=== PATIENT | female | born 1980 | race Caucasian/White ===

== ENCOUNTER → 2018-07-30 14:59 | Outpatient (CLI) | payer BC, SELFPAY ==
--- NOTE | 2018-07-30 15:04 | MM_ITS ---
MM Dig screening mamm BI w/CAD CAD Screening COMPARISON: Digital mammograms 06/27/2016 07/13/2017 and additional views left breast 07/26/2017 INDICATION: There is a history of breast cancer patient's sister diagnosed at age 45 and paternal aunt diagnosed at age 70. TECHNIQUE: Standard CC and MLO images were obtained. R2 CAD reviewed. FINDINGS: The breasts are composed primarily of fat with scattered fibroglandular densities throughout most prominent in the upper outer quadrants. There is a small benign-appearing nodular density upper central portion of left breast stable and unchanged from previous exam. There is no suspicious lesion and there are no suspicious microcalcifications. IMPRESSION: Fibrofatty parenchyma with no suspicious lesion seen. BI-RADS Category: 2 Benign Finding(s) RECOMMENDED FOLLOW-UP: 1YR - 1 YEAR FOLLOW-UP (A letter has been sent to the patient regarding results of the study.)
== END ==
PROVIDERS: Family Provider Internal Medicine Adolescent Medicine; PCP Internal Medicine Adolescent Medicine; Visit Provider Internal Medicine Adolescent Medicine
DX: Z12.31 Encounter for screening mammogram for malignant neoplasm of breast (principal)
CPT/HCPCS: 77067

== ENCOUNTER → 2019-08-04 16:34 | Outpatient (CLI) | payer BC, SELFPAY ==
--- NOTE | 2019-08-04 16:40 | MM_ITS ---
PROCEDURE: MM DIG SCREENING MAMM BI W/CAD Patient Age:38Y CLINICAL INDICATION: ROUTINE SCREENING takes control pills no new complaints.. Family history. Sister age 45. Paternal aunt age 70? COMPARISON: DMSB DIG MAMM-SCREEN SABINE from 06/16/2015 DMSB DIG MAMM-SCREEN SABINE from 06/27/2016 DMBAV DIG MAMM- SABINE ADD VIEWS from 07/10/2016 DMSB DIG MAMM-SCREEN SABINE W/CAD from 07/13/2017 DMDXUAVL DIG MAMM-DX UNI A/VWS-LT W/CAD from 07/26/2017 [facility] MM Dig screening mamm BI w/CAD from 07/30/2018 TECHNIQUE: Standard CC and MLO images were obtained. R2 CAD reviewed. Additional axillary CC view right breast FINDINGS: . Minimal fibroglandular elements seen throughout both breast most evident central and towards upper-outer quadrant. No new areas of significant concern. Stable appearance when compared to multiple prior studies. Left breast but small stable nodular density compatible with small intramammary node deep left breast is stable. 5 mm size but IMPRESSION: Stable bilateral mammogram. No significant new areas of concern. Bilateral follow-up 1 year recommended BI-RAD Category: 1 Negative FOLLOW-UP: 1YR 1 Year Follow-up (A letter has been sent to the patient regarding results of the study.) Dictated by: Ramon Shelton MD 08/08/2019 09:01 Electronically signed by Ramon Shelton MD in [place] 08/08/2019 09:01
== END ==
PROVIDERS: PCP Internal Medicine Adolescent Medicine; Visit Provider Internal Medicine Adolescent Medicine
DX: Z12.31 Encounter for screening mammogram for malignant neoplasm of breast (principal)
CPT/HCPCS: 77067

== ENCOUNTER → 2020-08-06 15:30 | Outpatient (CLI) | payer BC, SELFPAY ==
--- NOTE | 2020-08-06 15:33 | MM_ITS ---
PROCEDURE: MM DIG SCREENING MAMM BI W/CAD Digital Breast Tomosynthesis Included CLINICAL INDICATION: SCREENING There is a history of breast cancer in the patient's sister and paternal aunt. The patient is on control pills. COMPARISON: MG DMDXUAVL DIG MAMM-DX UNI A/VWS-LT W/CAD from 07/26/2017 MG [facility] MM Dig screening mamm BI w/CAD from 07/30/2018 MG MM DIG SCREENING MAMM BI W/CAD from 08/04/2019 TECHNIQUE: Standard CC and MLO images and 3D Tomosynthesis was obtained. R2 CAD reviewed. FINDINGS: The breasts are composed primarily of fat with minimal scattered fibroglandular densities in each breast and the findings are bilateral and symmetrical. There is no new or suspicious lesion in either breast and no suspicious microcalcifications. There are several small nodes in both axilla which were noted previously. IMPRESSION: Fibrofatty parenchyma with no suspicious lesions seen BI-RAD Category: 1 Negative FOLLOW-UP: 1YR 1 Year Follow-up (A letter has been sent to the patient regarding results of the study.) Dictated by: Dr. Jose E Arango MD 08/08/2020 20:03 Dr. Jose E Arango MD in [place] 08/08/2020 20:03
== END ==
PROVIDERS: PCP Internal Medicine Adolescent Medicine; Visit Provider Internal Medicine Adolescent Medicine
DX: Z12.31 Encounter for screening mammogram for malignant neoplasm of breast (principal)
CPT/HCPCS: 77063; 77067

== ENCOUNTER → 2021-05-16 08:40 | Outpatient (CLI) | payer BC, SELFPAY ==
[2021-05-16 14:00] LABS: Alanine Aminotransferase 32 U/L (12-78); Albumin Level 3.9 g/dl (3.5-5.0); Albumin/Globulin Ratio 1.5 (1.1-1.8); Alkaline Phosphatase 78 U/L (38-126); Anion Gap 13.4 mEq/L (5-15); Aspartate Amino Transferase 49 U/L (14-36); Bilirubin,Total 0.5 mg/dl (0.2-1.3); Blood Urea Nitrogen 13 mg/dl (7-17); Calcium 9.1 mg/dl (8.4-10.2); Carbon Dioxide 22 mmol/L (22.0-30.0); Chloride 105 mmol/L (98-107); Chol/HDL Ratio 2.9 (1-3.5); Cholesterol 232 mg/dl (140-200); Estimated Glomerular Filt Rate 110 ml/min (>60); GFR (African American) 133 ML/MIN (>60); Globulin 2.6 g/dL (1.3-3.2); Glucose 94 mg/dl (74-100); HDL Cholesterol 79 mg/dl (40-60); Potassium 4.4 mmoL/L (3.5-5.1); Sodium 136 mmol/L (136-145); Total Protein,Serum 6.5 g/dl (6.3-8.2); Triglycerides 144 mg/dl (30-150); VLDL Cholesterol 29 mg/dL (0-40)
== END ==
PROVIDERS: Visit Provider Nurse Practitioner Family
DX: Z00.00 Encounter for general adult medical examination without abnormal findings (principal); I10 Essential (primary) hypertension
CPT/HCPCS: 36415; 80053; 80061

== ENCOUNTER → 2021-05-25 08:37 | Outpatient (CLI) | payer BC, SELFPAY | PROVIDERS: Visit Provider Nurse Practitioner Family | DX: R74.8 Abnormal levels of other serum enzymes (principal) | CPT/HCPCS: 80074 ==

== ENCOUNTER → 2021-05-25 09:03 | Outpatient (CLI) | payer BC, SELFPAY ==
--- NOTE | 2021-05-25 09:23 | US_ITS ---
PROCEDURE: US LIVER CLINICAL INDICATION: ELEVATED LIVER ENZYMES COMPARISON: No exams were available for comparison FINDINGS: PANCREAS: Pancreas is not well delineated due to overlying bowel gas. CT or MRI without and with contrast with pancreatic protocol may provide further evaluation if clinically desired. LIVER: Diffuse increased echogenicity of the liver with poor through transmission of sound consistent with hepatic steatosis. No focal liver lesion demonstrated. There is appropriate direction of blood flow within non dilated portal vein. RIGHT KIDNEY: Unremarkable. Normal size and echogenicity. No hydronephrosis GALLBLADDER: No gallstones, gallbladder wall thickening, pericholecystic fluid, or biliary dilatation. IMPRESSION: Fatty liver. Pancreas not well delineated. Otherwise negative Dictated by: Jogre Banerjee MD 05/25/2021 14:58 Jorge Banerjee MD in [place] 05/25/2021 14:58
[2021-05-26 11:12] LABS: Hep A Ab, IgM Negative (Negative); Hepatitis B Core Antibody IgM Negative (Negative); Hepatitis B Surface Antigen Negative (Negative); Hepatitis C Antibody <0.1 s/co ratio (0.0-0.9)
== END ==
PROVIDERS: Nurse Practitioner Family; PCP Internal Medicine Adolescent Medicine; Visit Provider Nurse Practitioner Family
DX: R74.8 Abnormal levels of other serum enzymes (principal)
CPT/HCPCS: 36415; 76705; 80074

== ENCOUNTER → 2021-08-08 15:30 | Outpatient (CLI) | payer BC, SELFPAY ==
--- NOTE | 2021-08-08 15:33 | MM_ITS ---
PROCEDURE: MM DIG SCREENING MAMM BI W/CAD Digital Breast Tomosynthesis Included CLINICAL INDICATION: SCREENING COMPARISON: MG [facility] MM Dig screening mamm BI w/CAD from 07/30/2018 MG MM DIG SCREENING MAMM BI W/CAD from 08/04/2019 MG MM DIG SCREENING MAMM BI W/CAD from 08/06/2020 TECHNIQUE: Standard CC and MLO images and 3D Tomosynthesis was obtained. R2 CAD reviewed. FINDINGS: There are scattered areas of fibroglandular density. No suspicious appearing mass, malignant-appearing microcalcification, architectural distortion, or skin thickening. IMPRESSION: No change with no evidence of malignancy BI-RAD Category: 1 Negative FOLLOW-UP: 1 YR 1 Year Follow-up (A letter has been sent to the patient regarding results of the study.) Dictated by: Jorge Banerjee MD 08/19/2021 12:36 Jorge Banerjee MD in [place] 08/19/2021 12:36
== END ==
PROVIDERS: PCP Internal Medicine Adolescent Medicine; Visit Provider Internal Medicine Adolescent Medicine
DX: Z12.31 Encounter for screening mammogram for malignant neoplasm of breast (principal)
CPT/HCPCS: 77063; 77067

== ENCOUNTER → 2021-08-09 16:20 | Outpatient (CLI) | payer BC, SELFPAY ==
--- NOTE | 2021-08-09 16:23 | XR_ITS ---
PROCEDURE: XR FOOT LT MIN 3V CLINICAL INDICATION: LT FOOT PAIN COMPARISON: No exams were available for comparison FINDINGS: No fracture or dislocation. No lytic or blastic change. There is normal mineralization. The joint spaces are well-preserved. No significant degenerative/arthritic changes. No erosive changes evident. Other findings:No sclerotic areas that would indicate a stress fracture IMPRESSION: No acute findings. Dictated by: Jorge Banerjee MD 08/09/2021 18:05 Jorge Banerjee MD in [place] 08/09/2021 18:05
== END ==
PROVIDERS: PCP Nurse Practitioner Family; Visit Provider Nurse Practitioner Family
DX: M79.672 Pain in left foot (principal)
CPT/HCPCS: 73630

== ENCOUNTER 2022-01-15 11:07 | Emergency (ER) | payer BC, SELFPAY ==
[2022-01-15 11:10] VITALS: BP 128/92; PULSE 118; RESP 18; TEMP 37.4; O2SAT 98; BMI 36.6
--- NOTE | 2022-01-15 11:27 | HMH.EDUTC ---
[facility] Disposition Clinical Impression: Bronchitis Sinusitis Qualifiers: Sinusitis location: unspecified location Chronicity: unspecified Qualified Code(s): J32.9 - Chronic sinusitis, unspecified Disposition: Home, Self-Care Condition on Discharge: Good Instructions: Acute Bronchitis, DI for Sinusitis, Doxycycline Additional Instructions: ? Start antibiotic today. Be sure to complete entire prescription even if feeling better ? Monitor temp. Tylenol every 4 hours as needed and / or ibuprofen every 6 hours as needed ( As long as your primary care physician has told you that it ok to take both. For fever/aches/pains ER if no less than 101 despite Tylenol or Motrin ? Humidifier/vaporizer or hot steamy shower ? Mucinex for your cough and cough congestion Be sure to drink lots of water. *Start steroid today. Helps with inflammation therefore, cough and wheezing. Follow directions on the package. Reviewed side effects. Patient reports taking them before. You were tested for today for COVID19 your test result should be back in the next 24-48 hours, you may check your results on the [facility] portal if you have trouble logging on you may call support for assistance If you are positive someone from the hospital will call you Make sure to take your Vitamins Vit. C Vit D and Zinc if you can take them Gargle warm salt water to help with sore scratchy throat Follow up IMMEDIATELY for new or worsening of symptoms OR no noticeable improvement over the next 48-72 hours. 911 immediately for any life threatening symptoms such as chest pain or difficulty breathing Prescriptions: Doxycycline Monohydrate [Doxycycline [place] 100mg Tab] 100 mg PO BID 10 Days #20 tab Transmission Status: Pending to [facility] Fluticasone Propionate [Flonase 50mcg nasal spray 16gm] 1 spr NS DAILY #1 each Transmission Status: Pending to [facility] methylPREDNISolone [Medrol 4mg tab] 4 mg PO DIRECTED #21 tab Transmission Status: Pending to [facility] guaiFENesin [Mucinex 600mg tablet] 1 - 2 tab PO Q12H PRN #20 tab PRN Reason: Congestion Transmission Status: Pending to [facility] Referrals: Ata Lyons MD [Primary Care Provider] - As needed Forms: Work/School Release Time of Disposition: 11:42 Medical Decision Making - Rian Inquiry Pt receiving controlled substance: No Rian was queried for this patient: No Vital Signs: 01/15/22 11:10 01/15/22 11:42 Temperature 99.4 F 99.4 F Temperature Source Oral Pulse Rate 118 H Pulse Rate [Right Brachial] 118 H Respiratory Rate 18 18 Blood Pressure 128/92 H Blood Pressure [Right Arm] 128/92 H Blood Pressure Mean [Right Arm] 104 Blood Pressure Source [Right Arm] Automatic Cuff Blood Pressure Position [Right Arm] Sitting 02 Sat by Pulse Oximetry 98 Oxygen Delivery Method Room Air Orders (Tests/Meds): ORDERS Category Date Time Status Covid-19 Nasal PCR ([facility]) Routine Lab 01/15/22 11:32 Ordered [facility] UTC HPI - General Stated complaint: body aches, chills, bilateral ear pain Time Seen by Provider: 01/15/22 11:27 Mode of Arrival: Ambulatory Source of Information: Patient Limitations: No Limitations Description of Symptoms (Recalled from Triage Doc. by RN): PATIENT C/O CHEST CONGESTION, PRODUCTIVE COUGH WITH YELLOW SPUTUM, BILATERAL EAR PAIN, SINUS DRAINAGE/PRESSURE, AND DRY MOUTH X 3 DAYS HEENT Symptoms (Recalled from RN notes): Yes Resp Symptoms (Recalled from RN notes): Yes Skin Symptoms (Recalled from RN notes): No MS Symptoms (Recalled from RN notes): No Functional Status (Recalled from RN notes): WNL - History of Present Illness Provider Complaint: Patient states that she has been having bilateral ear pain, sinus pain and pressure with drainage in the back of her throat that at times she is able to cough up States that mucous from her nose is yellowish and bloody at times, Body aches, and chills States that today she was still not feeli
[2022-01-15 11:42] VITALS: BP 128/92; PULSE 118; RESP 18; TEMP 37.4; O2SAT 98
== END 2022-01-15 11:45 | disposition home or self-care (01) ==
PROVIDERS: Emergency Provider Nurse Practitioner; PCP Internal Medicine Adolescent Medicine
DX: U07.1 COVID-19 (principal); J20.9 Acute bronchitis, unspecified; J32.9 Chronic sinusitis, unspecified; I10 Essential (primary) hypertension
CPT/HCPCS: 99202; 99212; 99213; C9803; G0463; U0003; U0005

== ENCOUNTER → 2022-02-06 16:21 | Outpatient (CLI) | payer BC, SELFPAY ==
--- NOTE | 2022-02-06 | XR_ITS ---
PROCEDURE INFORMATION: Exam: XR Chest Exam date and time: 02/06/2022 12:00 AM Age: 41 years old Clinical indication: Shortness of breath; Additional info: SOB TECHNIQUE: Imaging protocol: XR of the chest. Views: 2 views. COMPARISON: No relevant prior studies available. FINDINGS: Lungs: Unremarkable. No consolidation. Pleural spaces: Unremarkable. No pleural effusion. No pneumothorax. Heart/Mediastinum: Unremarkable. No cardiomegaly. Bones/joints: Unremarkable. IMPRESSION: No acute findings.
--- NOTE | 2022-02-06 16:51 | ECG_ITS ---
APPROVED REPORT Exam: Resting ECG HR:77 bpm ECG Measurements Heart Rate 77 AXES MN 149 P 14 QRSd 96 QRS 5 QT 382 T 35 QTc 413 Conclusion SINUS RHYTHM WITH SINUS ARRHYTHMIA LOW QRS VOLTAGE IN PRECORDIAL LEADS [QRS DEFLECTION < 1.0 mV IN CHEST LEADS] BORDERLINE ECG UNCONFIRMED REPORT Electronically signed by : Ata Lyons MD 02/07/2022 14:06:54
== END ==
PROVIDERS: PCP Physician Assistant; Visit Provider Physician Assistant
DX: U07.1 COVID-19 (principal); R05.9 Cough, unspecified
CPT/HCPCS: 71046; 93005

== ENCOUNTER → 2022-02-07 07:01 | Outpatient (CLI) | payer BC, SELFPAY ==
[2022-02-07 14:07] LABS: Basophils # 0.1 K/mm3 (0-0.2); Eosinophils # 0.4 K/mm3 (0.0-0.4); Eosinophils % 4.7 % (0.1-12.0); Hematocrit 41.7 % (37.0-47.0); Hemoglobin 13.1 g/dL (12.2-16.2); Lymphocytes # 2.2 K/mm3 (0.7-4.5); Lymphocytes % 27.8 % (10-50); Mean Corpuscular HGB Conc 31.4 g/dL (31.8-35.4); Mean Corpuscular Hemoglobin 28.4 pg (27.0-31.2); Mean Corpuscular Volume 90.3 fl (81-99); Mean Platelet Volume 9.5 fl (7.4-10.4); Monocytes # 0.4 K/mm3 (0.1-1.0); Monocytes % 5.4 % (1.7-9.3); Neutrophils # 4.8 K/mm3 (1.8-7.8); Platelet Count 462 K/mm3 (142-424); Red Blood Count 4.62 M/mm3 (4.20-5.40); Red Cell Distribution Width 13.6 % (11.5-17.5); White Blood Count 7.8 K/mm3 (4.8-10.8)
[2022-02-07 14:46] LABS: Alanine Aminotransferase 56 U/L (12-78); Albumin Level 4.1 g/dl (3.5-5.0); Albumin/Globulin Ratio 1.6 (1.1-1.8); Alkaline Phosphatase 75 U/L (38-126); Anion Gap 11.2 mEq/L (5-15); Aspartate Amino Transferase 63 U/L (14-36); Bilirubin,Total 0.8 mg/dl (0.2-1.3); Blood Urea Nitrogen 8 mg/dl (7-17); Calcium 8.9 mg/dl (8.4-10.2); Carbon Dioxide 24 mmol/L (22.0-30.0); Chloride 106 mmol/L (98-107); Chol/HDL Ratio 3.5 (1-3.5); Cholesterol 235 mg/dl (140-200); Estimated Glomerular Filt Rate 110 ml/min (>60); GFR (African American) 133 ML/MIN (>60); Globulin 2.5 g/dL (1.3-3.2); Glucose 111 mg/dl (74-100); HDL Cholesterol 67 mg/dl (40-60); Potassium 4.2 mmoL/L (3.5-5.1); Sodium 137 mmol/L (136-145); Total Protein,Serum 6.6 g/dl (6.3-8.2); Triglycerides 187 mg/dl (30-150); VLDL Cholesterol 37 mg/dL (0-40)
[2022-02-07 14:57] LABS: Direct LDL Cholesterol 132.67 mg/dL (100-129)
[2022-02-07 15:14] LABS: Thyroid Stimulating Hormone 1.48 uIU/mL (0.465-4.68)
[2022-02-07 16:08] LABS: Hemoglobin A1C 6.1 % (4.0-6.0)
== END ==
PROVIDERS: Visit Provider Physician Assistant
DX: R73.9 Hyperglycemia, unspecified (principal)
CPT/HCPCS: 36415; 80053; 80061; 83036; 84439; 84443; 85025

== ENCOUNTER → 2022-02-28 07:35 | Outpatient (CLI) | payer BC, SELFPAY ==
--- NOTE | 2022-02-28 07:36 | CA_ITS ---
APPROVED REPORT EXAM: Comprehensive 2D, Doppler, and color-flow Echocardiogram Actuary Clerk: Ruby Albarran, RCS, RVS Ht: 5 ft 2 in Wt: 210lbs BSA: 1.95 BP: 129/78 mmHg Indications: Hx-COVID 11/2021, CP, Palpitations, HTN, DM,HLD, HAYNES 2D Dimensions IVSd 0.65 cm LVEF (Visual) 73.00 % PWd 0.72 cm LA Volume 34.70 mL LVDd 4.75 cm LA Volume Index 17.80 mL/m2 (M/F) 16-34 LVDs 2.75 cm Aortic Root 2.37 cm Left Atrium 2.15 cm LVOT 1.88 cm (M/F) 1.5-2.5 M-Mode Dimensions RVDd 2.75 cm (0.9-2.6) LA Diam 3.59 cm (1.9-4.0) LVDd 4.68 cm (3.5-5.7) Ao Diam 2.73 cm (2.0-3.7) LVDs 3.07 cm (3.5-5.7) IVSd 0.96 cm (0.6-1.1) PWd 0.71 cm (0.6-1.1) EF (Teich) 63.50% EPSs 0.18 cm FS 34.40% EDV (Teich) 101.30 mL TAPSE 2.09 (<1.7) ESV (Teich) 37.00 mL LV Diastology E Decel Time 237.00 (160-240 msec) E/A Ratio 1.32 MED E' 8.20 (< 7 cm/sec) MED A' 12.80 cm/s E'/MED E' Ratio 11.00 (>14) LAT E' 13.60 (<10 cm/sec) LAT A' 7.40 cm/s E/LAT E' Ratio 6.63 (>14) Aortic Valve LVOT Max 115.00 (70-110 cm/s) LVOT VTI 25.66 cm AoV Peak Winston. 156.00 (50-130 cm/s) AO Peak GR. 9.80 mmHg AO Mean GR. 4.90 (<5 mmHg) AO VTI 32.00 (18-25 cm) ERNESTO (VTI) 2.23 (2.5-4.5 cm2) Mitral Valve MV A Velocity 68.00 (40-130 cm/s) E/A Ratio 1.32 MV Decel. Time 237.00 (160-240 ms) MV Mean Gr. 2.30 (<2mmHg) MV PHT 70.00 ms Pulmonary Valve PV Peak Velocity 107.00 (50-150 cm/s) [place] End VMAX 128.00 cm/s Tricuspid Valve TR P. Velocity 210.00 cm/s RAP Estimate 10.00 mmHg RVSP 27.70 mmHg Left Ventricle Left atrium is normal size, left ventricle is normal size, there is no concentric left ventricular hypertrophy, estimated ejection fraction 55% with no regional wall motion abnormality, diastolic parameters are within normal range. Right Ventricle Right atrium and right ventricle are normal size and contractility. Aortic Valve Is grossly normal, there is no aortic stenosis or aortic insufficiency. Mitral Valve Mitral valve is grossly normal, there is no mitral stenosis, there is trace mitral regurgitation. Tricuspid Valve Tricuspid valve grossly normal, there is trace tricuspid regurgitation, tricuspid regurgitation jet velocity is inadequate for calculation of the right ventricular systolic pressure. Pulmonic Valve Pulmonic valve is poorly visualized. Great Vessels Aortic root is normal size. Inferior vena cava is poorly visualized. Pericardium No significant pericardial effusion noted. Conclusion 1. Normal left ventricular size, preserved left ventricular systolic function, visually estimated ejection fraction 55% with no regional wall motion abnormality, diastolic parameters are within normal range. 2. Trace mitral and tricuspid regurgitation. 3. No significant pericardial effusion noted. 4. Inferior vena cava is poorly visualized. Electronically signed by : Jonh Ko MD 02/28/2022 19:15:34
--- NOTE | 2022-02-28 07:36 | CA_ITS ---
APPROVED REPORT Exam: Exercise Treadmill Technologist: Francesca Edwards, Ht: 5 ft 2 in Wt: 210 lbs BSA: 1.95 m2 HR: 75 bpm BP: 113/72 mmHg Medical History Medications: Lisinopril,,,,, Flonase,,,,, Montelukast,,,,, CetIRIZINE,,,,, NYstatin,,,,, Tri-lo-sheryl,,,,, Stress Test Details Test: Fabricio HR Resting HR: 73 bpm Max Heart Rate (APMHR): 178.243657 bpm Max HR Achieved: 175 bpm Target HR (85% APMHR): 151.179214 bpm % of APMHR: 98.31 Recovery HR: 117 bpm BP Resting BP: 130/79 mmHg Max BP: 188/85 mmHg Recovery BP: 121.0/71.0 mmHg ECG Resting ECG: NSR with periods of ectopic atrial rhythm, low voltage QRS Clinical Exercise duration: 07:02 min Highest Stage Achieved: III Exercise capacity: 10.1 METs Stress ECG Conclusion Exercised 7:02 into stage III of Fabricio Protocol Max HR: 175 % of PM: 98% Max BP: 188/85 METs: 10.1 Test stopped due to: SOA, Fatigue Symptoms: No CP. Arrhythmias/Ectopy: sustained periods of ectopic atrial rhythm. ST-T Changes: Normal ST response to exercise. Conclusion: No ischemic changes or CP. Ectopic atrial rhythm. GXT only (no imaging) Test Summary REST . . . . . . . Sitting REST 04:35 0.0 0.0 73 . 130/ 79 . . Stage 1 01:00 10.0 1.7 120 . . . . Stage 1 02:00 10.0 1.7 127 . . . . Stage 1 03:00 10.0 1.7 136 . 172/ 86 . . Stage 2 01:00 12.0 2.5 156 . . . . Stage 2 02:00 12.0 2.5 169 . 188/ 85 . . Stage 2 03:00 12.0 2.5 171 . 188/ 85 . . Stage 3 01:00 14.0 3.4 165 . . . . Stage 3 01:02 14.0 3.4 173 . . . Stop exercise at 07:02 RECOVERY 01:00 0.0 0.0 163 . . . . RECOVERY 02:00 0.0 0.0 133 . 168/ 78 . . RECOVERY 03:00 0.0 0.0 127 . 168/ 78 . . RECOVERY 04:00 0.0 0.0 113 . 134/ 77 . . RECOVERY 05:00 0.0 0.0 118 . 134/ 77 . . RECOVERY 06:00 0.0 0.0 121 . 134/ 77 . . RECOVERY 07:00 0.0 0.0 119 . 121/ 71 . . RECOVERY 07:27 0.0 0.0 115 . 121/ 71 . . Electronically signed by : Jonh Ko MD 02/28/2022 18:38:55
== END ==
PROVIDERS: PCP Physician Assistant; Visit Provider Physician Assistant
DX: R06.00 Dyspnea, unspecified (principal); R07.9 Chest pain, unspecified; R42 Dizziness and giddiness; R00.2 Palpitations; I10 Essential (primary) hypertension; E78.5 Hyperlipidemia, unspecified
CPT/HCPCS: 93017; 93270; 93306

== ENCOUNTER → 2022-03-21 10:23 | Outpatient (CLI) | payer BC, SELFPAY ==
--- NOTE | 2022-03-21 10:29 | US_ITS ---
FINAL REPORT CLINICAL HISTORY: MENORRHAGIA W/REG CYCLE FINDINGS: Transvaginal Ultrasound Technique: Transvaginal sonographic images of the pelvis were obtained. Findings: The uterus measures 9.8 x 6.7 x 4.3 cm. The myometrium is heterogeneous with multiple fibroids up to 2.6 cm. The endometrium is unremarkable. The right ovary measures 2.7 x 2.0 x 2.1 cm. The left ovary measures 3.1 x 2.4 x 2.0 cm. There are small cysts or follicles in both ovaries measuring less than 2 cm. There is no significant free fluid. IMPRESSION: Heterogeneous myometrium with multiple fibroids. Small cysts or follicles in both ovaries. Reviewed, Interpreted and Dictated by Cem Suárez MD Transcribed by Quoc Terrazas Authenticated by Cem Suárez MD on 03/21/2022 12:50:22 PM [facility]
== END ==
PROVIDERS: PCP Physician Assistant; Visit Provider Nurse Practitioner Family
DX: N92.0 Excessive and frequent menstruation with regular cycle (principal)
CPT/HCPCS: 76830

== ENCOUNTER → 2022-08-16 10:44 | Outpatient (CLI) | payer BC, SELFPAY ==
--- NOTE | 2022-08-16 10:48 | MM_ITS ---
PROCEDURE INFORMATION: Exam: MG Bilateral Screening 3D Mammography Exam date and time: 08/16/2022 10:40 AM Age: 41 years old Clinical indication: Screening examination. Her sister and a paternal aunt had breast cancer. TECHNIQUE: Imaging protocol: Bilateral Screening tomosynthesis and 2D mammography including computer-aided detection (CAD) when performed. COMPARISON: 1. MG MM DIG SCREENING MAMM BI W/CAD 08/08/2021 3:32 PM 2. MG MM DIG SCREENING MAMM BI W/CAD 08/06/2020 3:46 PM 3. MG MM DIG SCREENING MAMM BI W/CAD 08/04/2019 4:54 PM 4. MG [facility] MM Dig screening mamm BI w/CAD 07/30/2018 3:39 PM FINDINGS: MAMMOGRAPHY: Breast composition: There are scattered areas of fibroglandular density. Mass: None. Architectural distortion: None. Calcifications: No suspicious calcifications. Asymmetric density: None. Skin thickening: None. Axillary adenopathy: None. IMPRESSION: No mammographic evidence of malignancy. Annual screening is recommended unless otherwise clinically indicated. ASSESSMENT: BI-RADS Category 1: Negative
== END ==
PROVIDERS: PCP Physician Assistant; Visit Provider Internal Medicine Adolescent Medicine
DX: Z12.31 Encounter for screening mammogram for malignant neoplasm of breast (principal)
CPT/HCPCS: 77063; 77067

== ENCOUNTER → 2022-10-10 11:23 | Outpatient (CLI) | payer BC, SELFPAY ==
[2022-10-10 12:25] LABS: Basophils # 0.1 K/mm3 (0-0.2); Basophils % 1.2 % (0.1-2.0); Eosinophils # 0.3 K/mm3 (0.0-0.4); Eosinophils % 2.9 % (0.1-12.0); Hematocrit 45.4 % (37.0-47.0); Hemoglobin 14.5 g/dL (12.2-16.2); Lymphocytes # 3.9 K/mm3 (0.7-4.5); Lymphocytes % 32.3 % (10-50); Mean Corpuscular HGB Conc 31.9 g/dL (31.8-35.4); Mean Corpuscular Volume 87.8 fl (81-99); Mean Platelet Volume 7.7 fl (7.4-10.4); Monocytes # 0.5 K/mm3 (0.1-1.0); Monocytes % 3.8 % (1.7-9.3); Neutrophils # 7.1 K/mm3 (1.8-7.8); Neutrophils % 59.8 % (37.0-80.0); Platelet Count 404 K/mm3 (142-424); Red Blood Count 5.18 M/mm3 (4.20-5.40); Red Cell Distribution Width 13.5 % (11.5-17.5); White Blood Count 11.9 K/mm3 (4.8-10.8)
[2022-10-10 12:44] LABS: Chloride 104 mmol/L (98-107); Potassium 4.3 mmoL/L (3.5-5.1); Sodium 140 mmol/L (136-145)
[2022-10-10 12:46] LABS: Alanine Aminotransferase 40 U/L (12-78); Alkaline Phosphatase 98 U/L (38-126); Aspartate Amino Transferase 40 U/L (14-36); Bilirubin,Total 0.2 mg/dl (0.2-1.3); Blood Urea Nitrogen 6 mg/dl (7-17); Estimated Glomerular Filt Rate 109 ml/min (>60); GFR (African American) 132 ML/MIN (>60)
[2022-10-10 12:47] LABS: Albumin Level 4.2 g/dl (3.5-5.0); Albumin/Globulin Ratio 1.6 (1.1-1.8); Anion Gap 14.3 mEq/L (5-15); Calcium 9.9 mg/dl (8.4-10.2); Carbon Dioxide 26 mmol/L (22.0-30.0); Globulin 2.6 g/dL (1.3-3.2); Glucose 71 mg/dl (74-100); Total Protein,Serum 6.8 g/dl (6.3-8.2)
[2022-10-10 13:19] LABS: HCG,Quantitative < 2 mIU/ml (0-5.42)
== END ==
PROVIDERS: PCP Internal Medicine Adolescent Medicine; Visit Provider Obstetrics & Gynecology
DX: Z01.818 Encounter for other preprocedural examination (principal); N85.2 Hypertrophy of uterus
CPT/HCPCS: 36415; 80053; 84702; 85025

== ENCOUNTER 2022-10-12 09:06 | Inpatient (IN) | payer BC, SELFPAY ==
[2022-10-10 15:25] VITALS: BMI 40.2
[2022-10-12] VITALS (21 sets, daily range): BP systolic 95–140; BP diastolic 62–85; PULSE 63–108; RESP 12–18; TEMP 36.1–43; O2SAT 94–99
[2022-10-12 06:57] LABS: Coronavirus 19, PCR Not Detected (NotDetected); Influenza A, PCR Not Detected (NotDetected); Influenza B, PCR Not Detected (NotDetected)
--- NOTE | 2022-10-12 07:32 | EXP.HP ---
History of Present Illness *Admission Date: 10/12/22 *Reason for visit:: hysterectomy *History of present illness: 41 yo Previous menses 2-3 days duration but now 8 days total Bleeding dysfunctional for past 5-6 months Bleeding is heavy, with large clots + double protection Hgb 13.1 Pelvic ultrasound 03/21/22: uterus 9.8x6.7x4.3 multiple fibroids noted, largest 2.6cm R ovary: 2.7x2.0x2.1 L ovary: 3.1x2.4x2.0 Desires definitive management with hysterectomy; declines continued trial of medical management or endometrial ablation She has been advised that she is a good candidate for trial of TLH, but depending on location of fibroids and vesico-uterine adhesions may require ARLIN She is advised to preserve ovaries based on current ultrasound findings PFSH [facility] Medical History (Updated 10/12/22 @ 07:37 by Vida Kay MD) History of COVID-19 History of hypertension Kidney stone Surgical History (Updated 10/12/22 @ 07:37 by Vida Kay MD) History of delivery History of tonsillectomy Family History Family history of cancer Family history of hypertension Family history of myocardial infarction Family history of hyperlipidemia Social History (Updated 10/12/22 @ 06:38 by Arlen Frias, MARVA) Smoking Status: Never smoker alcohol intake: never substance use type: denies use current occupational status: employed Travel in the last 8 weeks: None caffeine: Yes Review of Systems Review of Systems Review of systems:: pertinent systems reviewed and negative unless documented below Constitutional Constitutional: Reports system reviewed and no additional complaints, except as documented *Genitourinary Genitourinary: Reports dysmenorrhea and Reports menorrhagia Meds Home Medications and Allergies Home Medications Medication Instructions Recorded Confirmed Type cetirizine 10 mg tablet 10 mg PO DAILY Allergy symptoms 01/15/22 10/12/22 History montelukast 10 mg tablet 10 mg PO PM Allergy symptoms 01/15/22 10/12/22 History fluticasone propionate 50 1 spr NS DAILY allergies 10/10/22 10/12/22 History mcg/actuation nasal spray,suspension medroxyprogesterone 10 mg tablet 10 mg PO BID hormones 10/10/22 10/12/22 History (Provera) metoprolol succinate 25 mg 25 mg PO DAILY htn 10/10/22 10/12/22 History tablet,extended release 24 hr (Toprol XL) New Prescriptions to Start Prescriptions: Allergies Allergy/AdvReac Type Severity Reaction Status Date / Time chlorpheniramine Allergy Severe throat Verified 10/12/22 06:25 [From [facility]] swelling phenylephrine [From [facility]] Allergy Severe throat Verified 10/12/22 06:25 swelling pseudoephedrine [From [facility]] Allergy Severe throat Verified 10/12/22 06:25 swelling pyrilamine [From [facility]] Allergy Severe thraot Verified 10/12/22 06:25 swelling scopolamine [From [facility]] Allergy Severe throat Verified 10/12/22 06:25 swelling erythromycin base Allergy Other Verified 10/12/22 06:25 Exam Data for Last 24 hours Vital signs and Labs for Last 24 Hours: Temp Pulse Resp BP Pulse Ox 97.0 F L 63 18 140/76 99 10/12/22 06:27 10/12/22 06:27 10/12/22 06:27 10/12/22 06:27 10/12/22 06:27 Laboratory Results - last 24 hr 10/12/22 06:50: SARS-CoV-2 (PCR) Not detected, Influenza A Untype (PCR) Not detected, Influenza Type B (PCR) Not detected I & O for Last 24 hours: Intake & Output 10/09/22 10/10/22 10/11/22 10/12/22 11:59 11:59 11:59 11:59 Weight 220 lb Constitutional Constitutional: no acute distress *Routine HEENT Exam Head: Present normocephalic Eye: Absent conjunctival icterus or scleral injection ENT: Present mucous membranes moist *Routine Neck Exam Neck: Present supple *Routine Respiratory Exam Respiratory: Present CTA bilaterally; Absent respiratory distress *Routine Cardiovascular Exam Cardiovascular: Present RRR *Routine A
--- NOTE | 2022-10-12 08:16 | EXP.ANES.CKL ---
PFSH [facility] Medical History (Updated 10/12/22 @ 07:37 by Vida Kay MD) History of COVID-19 History of hypertension Kidney stone Surgical History (Updated 10/12/22 @ 07:37 by Vida Kay MD) History of delivery History of tonsillectomy Family History Other Family history of cancer Family history of hyperlipidemia Family history of hypertension Family history of myocardial infarction Social History (Updated 10/12/22 @ 06:38 by Arlen Frias, RN) Smoking Status: Never smoker alcohol intake: never substance use type: denies use current occupational status: employed Travel in the last 8 weeks: None caffeine: Yes [facility] Anesthesia Checklist Patient Identification Patient Identification: Arm Band and Verbal (Name & ) Structural Data Admitted From: Home Planned Operative Procedure/s: Total Laparascopic Hysterectomy Consent for Planned Operative Procedure(s) Verified: Yes Verified Documents: Surgical Consent NPO Status Verified Time NPO: 00:00 Chart Verification Results Verified: CBC and BMP Additional verifications Anesthesia Reactions: No Hx Blood Transfusions: No Blood Transfusion Reaction: No Airway Assessment C-Spine Mobility Assessed: Yes TMJ Mobility Assessed: Yes Dentition: Good Dentition Neurological Assessment Level of Consciousness: Awake and Alert Anesthesia Plan ASA Class: III Anesthesia Type: General
--- NOTE | 2022-10-12 09:17 | SUR.OPER ---
LATE ENTRY 0825- decision made by md Demond to perform total abdominal hysterectomy. 0835- all counts completed and correct for the ARLIN procedure. All lap instruments removed and moved aside before the ARLIN counts began. 0853- open incision was made at this time. 0900- family updated of pt current status and changes in the surgery plan per alma buckner.
--- NOTE | 2022-10-12 09:30 | HMH.PHAINT1 ---
Pharmacy Intervention Comments: MEDICATION RECONCILIATION COMPLETED ON PATIENT USING EXTERNAL FILL HISTORY FROM PHARMACY. -VICKIE FRANCISCO, AMBERD
--- NOTE | 2022-10-12 09:39 | SUR.OPER ---
0850- counts completed and correct w/ afouch, and sita,rn blades-3 suture-21 hypo-1 bovie-1 laps-15 rays-10 hysterecomy instruments 23+ main set/ narda gooden 105= 128 total
--- NOTE | 2022-10-12 10:05 | SUR.OPER ---
1005- family updated of pt current status via alma gee
--- NOTE | 2022-10-12 11:29 | P.PNANES_ITS ---
[facility] Anesthesia Record Part I Anesthesia Record I Intake, IV Amount: 2,300 Estimated blood loss (mL): 450 Urine output (mL): 150 Blood Pressure: 95/62 SaO2: 98 Pulse Rate: 102 Respiratory Rate: 18 Temperature: 97.1 F Patient is:: Drowsy, Nasal O2 and Stable Stable to PACU at:: 11:23
--- NOTE | 2022-10-12 11:50 | EXP.OP.NOTE ---
Date of procedure: 10/12/22 Pre-op Diagnosis:: 1. Heavy Menstrual Bleeding 2. Enlarged Uterus 3. Uterine Fibroids 4. Previous C Section Post-op Diagnosis:: Same Procedure performed:: 1. Diagnostic Laparoscopy 2. Total Abdominal Hysterectomy, Bilateral Salpingectomy Surgeon:: Vida Kay MD Nurse Practitioner(s):: Afsaneh Manning DO DISTILLERY WORKER GENERAL:: Giorgi Lao Anesthesia: GETA Estimated blood loss (mL): 450 Operative findings:: Bulky, enlarged uterus with 5 discrete fibroids visualized Grossly normal ovaries bilaterally Grossly normal fallopian tubes bilaterally Moderate vesicouterine adhesions Operative note:: The patient was taken to the operating room and general anesthesia was administered without difficulty. She was prepped and draped in lithotomy position. An indwelling izaguirre catheter was inserted into the bladder with clear urine draining.? An Advincula uterine manipulator was placed without difficulty; the uterus sounded to 10cm and the colpotomy cup covered the cervix snuggly.? The uterine balloon was filled with 10cc of air and the vaginal balloon was filled with 50cc of sterile water.? Gloves were changed and attention was turned to the abdomen. ? The skin below the umbilical site was injected with 0.5% marcaine.? A 2cm skin incision was made in the umbilical fold and the verees needle was inserted through the peritoneum and into the abdominal cavity in standard fashion.? The abdomen was insufflated with CO2 gas.? An 11mm non-bladed trocar was inserted directly into the abdominal cavity under direct visualization; no intra-abdominal injuries occurred during entry into the abdominal cavity, as confirmed visually with the laparoscope. A survey of the pelvis showed a grossly enlarged and bulky uterus, with 5 discrete subserosal fibroids visualized within the fundus and anterior uterus. Based on the width of the uterus and location of some of the fibroids, it was determined that it would not be feasible to proceed with laparoscopic approach and the procedure was converted to an abdominal hysterectomy. The umbilical trocar and uterine manipulator were removed, the abdomen was evacutated of gas and the patient was taken out of lithotomy and re-draped in supine position. The umbilical incision was closed with 3-0 vicryl. A Pfannenstiel skin incision was made approximately 2 cm above the pubic symphysis with a scalpel and carried down to the underlying layer of fascia. The fascia was incised in the midline and extended laterally sharply. The rectus muscles were sharply dissected off the fascia and in the midline. The peritoneum was turned and sharply, with good visualization of the underlying structures. The peritoneal incision was extended bluntly. At this time, the patient was placed in Trendelenburg and an O'Jose Luis- O'Johnson abdominal retractor was placed in the abdomen; the bowel was packed with moist laparotomy sponges. A double tooth tenaculum was placed on the uterine fundus and the uterus was elevated out of the pelvis. The round ligaments were identified and transected and suture-ligated. The anterior lip of the broad ligament was dissected medially on both sides and the bladder flap was created digitally. The posterior leaf of the broad ligament was dissected until the ureters were able to be identified on either side and noted to be free of the forthcoming adnexal pedicles. Infundibulopelvic ligaments were doubly clamped transected and suture ligated on either side, with excellent hemostasis noted. The fallopian tubes on either side were excised using the ligasure and the specimens were set aside for pathology. The uterine arteries were skeletonized on either side, and were clamped, transected and suture ligated with excellent hemostasis. The bladder flap was further bluntly dissected off the lower uterine segment with excellent hemostasis and without injury to the bladder. The cardinal and uterosacral ligaments were clamped transe
--- NOTE | 2022-10-12 12:05 | SUR.PHASEI ---
1148 called and gave detailed report to Oseas Scott OB RN [id number] transported pt to OB room. vital signs stable. denies pain at this time. transported on 3L O2 via nasal cannula. Oseas Lao CRNA aware of pt needing oxygen and being drowsy post operatively. Oseas Lao CRNA okay that pt goes to regular OB room. left in stable condition with Oseas Scott OB RN at bedside.
--- NOTE | 2022-10-12 12:10 | PC.NURSE ---
PATIENT TO FLOOR- HERNANDEZ IN PLACE- DRAINING DARK YELLOW URINE. IV INFUSING WITHOUT DIFFICULTY. LUNGS CTA AND BOWEL SOUNDS X4. LOW TRANSVERSE INCISION NOTED. NO DRAINAGE. SMALL AMOUNT OF VAGINAL BLEEDING. NO EDEMA NOTED. SCUDS APPLIED. VISITORS AT BEDSIDE.
--- NOTE | 2022-10-12 19:15 | PC.NURSE ---
REPORT TO Janine BERRY RN
[2022-10-13 00:15] VITALS: BP 113/61; PULSE 109; RESP 18; TEMP 37.4; O2SAT 99
[2022-10-13 04:30] VITALS: BP 110/60; PULSE 100; RESP 18; TEMP 37.3
--- NOTE | 2022-10-13 06:07 | PC.NURSE ---
PT HAS RESTED WELL THROUGHOUT SHIFT, PT DENIES PAIN JUST STATES ABDOMEN IS SORE LUNGS REMAIN CLEAR, BS X 4 QUADS, PASSING FLATUS, IV INFUSING WELL, DRSG TO LOW TRANSVERSE INCISION CLEAN DRY AND INTACT, BANDAID TO ABD HAS SCANT AMOUNT OF OLD BLOOD NOTED, HERNANDEZ CATHETER PATENT, CALL LIGHT WITHIN REACH
[2022-10-13 07:20] VITALS: BP 111/67; PULSE 107; RESP 18; TEMP 37.3; O2SAT 97
[2022-10-13 07:25] VITALS: O2SAT 97
[2022-10-13 07:27] LABS: Hematocrit 31.2 % (37.0-47.0); Hemoglobin 10.3 g/dL (12.2-16.2)
[2022-10-13 07:38] LABS: Anion Gap 14.6 mEq/L (5-15); Blood Urea Nitrogen 9 mg/dl (7-17); Calcium 8.2 mg/dl (8.4-10.2); Carbon Dioxide 24 mmol/L (22.0-30.0); Chloride 105 mmol/L (98-107); Creatinine Clearance Estimated 163 mL/min (50-200); Estimated Glomerular Filt Rate 91 ml/min (>60); GFR (African American) 111 ML/MIN (>60); Glucose 135 mg/dl (74-100); Potassium 3.6 mmoL/L (3.5-5.1); Sodium 140 mmol/L (136-145)
--- NOTE | 2022-10-13 11:10 | PC.NURSE ---
Got patient up at this time- Done very well. bed linens changed. was able to urinate.
--- NOTE | 2022-10-13 14:30 | PC.NURSE ---
DRESSING REMOVED AT THIS TIME- CLEANSED PER PROTOCOL. PT EDUCATION PROVIDED.
[2022-10-13 16:00] VITALS: BP 110/68; PULSE 93; RESP 18; TEMP 37.3; O2SAT 95
--- NOTE | 2022-10-13 16:00 | PC.NURSE ---
REASSESSMENT DONE AT THIS TIME. NO CHANGES. LUNGS CTA, AND BOWEL SOUNDS ACTIVE X4. LOW TRANSVERSE INCISION CAMACHO - NO DRAINAGE. UMBILICAL INCISION WITH BANDAID OVER IT. NO EDEMA NOTED. PT HAS REPORTED MINIMAL PAIN TODAY, WELL MANAGEMENT WITH [facility]. NO CURRENT NEEDS.
--- NOTE | 2022-10-13 17:12 | EXP.ACUTE.PN ---
Subjective *Date: 10/13/22 *Time: 17:12 Interval history: POD #1 Diagnostic laparoscopy, ARLIN No unusual complaints Tolerating regular diet Ambulating and voiding without difficulty Pain control sufficient Medical Exam Vital signs and Labs for Last 24 Hours: Vital Signs Temp Pulse Resp BP Pulse Ox 10/13/22 16:00 95 10/13/22 07:25 97 10/13/22 07:20 99.1 F 107 H 18 111/67 97 10/13/22 04:30 99.1 F 100 H 18 110/60 10/13/22 00:15 99.3 F 109 H 18 113/61 99 10/12/22 19:00 102 H 18 121/71 98 10/12/22 18:00 98.5 F 89 18 133/79 98 Intake and Output 10/13/22 10/13/22 10/13/22 03:59 11:59 19:59 Output Total 1300 / 1300 1500 / 1500 Balance -1300 / -1300 -1500 / -1500 Output: Output, Urine Amount 1300 / 1300 1500 / 1500 Laboratory Results - last 24 hr 10/13/22 07:04: Hgb 10.3 L, Hct 31.2 L 10/13/22 07:04: Sodium 140, Potassium 3.6, Chloride 105, Carbon Dioxide 24, Anion Gap 14.6, BUN 9 D, Creatinine 0.70, Estimated Creat Clear 163, Estimated GFR 91, Est GFR ( Amer) 111, Glucose 135 H, Calcium 8.2 L I & O for Labs for Last 24 Hours: Intake & Output 10/11/22 10/12/22 10/13/22 10/14/22 11:59 11:59 11:59 11:59 Intake Total 2300 / 2300 Output Total 1300 / 1300 1500 / 1500 Balance 2300 / 2300 -1300 / -1300 -1500 / -1500 Weight 220 lb ENT: Present mucous membranes moist Neck: Present normal inspection Respiratory: Present CTA bilaterally; Absent respiratory distress Cardiac: Present Reg Rate and Rhythm GI: Present soft and tenderness; Absent distention (female): Present deferred Extremities: Absent tenderness or edema Skin: Present intact and dry Assessment and Plan *Assessment and plan (1) Heavy menstrual bleeding: Status: Acute Category: Medical Code(s): N92.0 - Excessive and frequent menstruation with regular cycle (2) Bulky or enlarged uterus: Status: Acute Category: Medical Code(s): N85.2 - Hypertrophy of uterus (3) Uterine fibroid: Status: Acute Category: Medical Code(s): D25.9 - Leiomyoma of uterus, unspecified (4) S/P abdominal hysterectomy: Status: Acute Category: Surgical Code(s): Z90.710 - Acquired absence of both cervix and uterus (5) Status post bilateral salpingectomy: Status: Acute Category: Surgical Code(s): Z90.79 - Acquired absence of other genital organ(s) Plan Advance care as tolerated Anticipate discharge home tomorrow
--- NOTE | 2022-10-13 19:16 | PC.NURSE ---
REPORT TO Ashley BAR RN
[2022-10-13 21:11] VITALS: BP 133/62; PULSE 99; RESP 18; TEMP 37.5; O2SAT 98
[2022-10-14 04:00] VITALS: BP 116/67; PULSE 110; RESP 18; TEMP 37.4; O2SAT 96
--- NOTE | 2022-10-14 04:35 | PC.NURSE ---
A&OX4. TOLERATING RA WELL. PT HAS HAD A GREAT NIGHT. HAS SLEPT MAJORITY OF SHIFT. SON AT BEDSIDE. PT HAS HAD NO C/O PAIN, ONLY SLIGHT BURNING TO L SIDE OF LOWER ABD INCISION WHEN WALKING TO BATHROOM. HAS ONLY REQUIRED SCHEDULED TORADOL T/O NIGHT. PT HAS HAD ADEQUATE U/O T/O NIGHT. AMBULATING INDEPENDENTLY IN ROOM. INCISION CDI, NO DRAINAGE NOTED. PT HAS NOT HAD BM BUT IS PASSING GAS. NO OTHER C/O OR NEEDS NOTED. VSS.
--- NOTE | 2022-10-14 07:28 | PC.NURSE ---
REPORT GIVEN TO Kristie OWENS RN
[2022-10-14 08:15] VITALS: BP 120/66; PULSE 105; RESP 18; TEMP 37.4; O2SAT 100
[2022-10-14 08:30] VITALS: O2SAT 100
--- NOTE | 2022-10-14 08:35 | PC.NURSE ---
IV saline lock secured and pt getting up to shower. Incentive spirometer provided and usage explained. Verbalized understanding.
[2022-10-14 11:00] VITALS: PULSE 98; TEMP 36.9; O2SAT 100
--- NOTE | 2022-10-14 11:16 | EXP.DC.SUM ---
General Admission date:: 10/12/22 HPI HPI HPI: 41 yo Previous menses 2-3 days duration but now 8 days total Bleeding dysfunctional for past 5-6 months Bleeding is heavy, with large clots + double protection Hgb 13.1 Pelvic ultrasound 03/21/22: uterus 9.8x6.7x4.3 multiple fibroids noted, largest 2.6cm R ovary: 2.7x2.0x2.1 L ovary: 3.1x2.4x2.0 Desires definitive management with hysterectomy; declines continued trial of medical management or endometrial ablation She has been advised that she is a good candidate for trial of TLH, but depending on location of fibroids and vesico-uterine adhesions may require ARLIN She is advised to preserve ovaries based on current ultrasound findings Hospital Course Hospital Course Hospital Course: Postop course uncomplicated She is discharged home on POD #2, in stable condition She is ambulating and voiding without difficulty She is tolerating a regular diet Pain control has been sufficient Postop labs reviewed and appropriate She is asmyptomatic with postop anemia Hgb 10.3 after hysterectomy with EBL 450cc She will f/u in office in 2 weeks Exam Data for Last 24 hours Vital signs and Labs for Last 24 Hours: Temp Pulse Resp BP Pulse Ox 98.4 F 98 H 18 120/66 100 10/14/22 11:00 10/14/22 11:00 10/14/22 08:15 10/14/22 08:15 10/14/22 11:00 I & O for Last 24 hours: Intake & Output 10/11/22 10/12/22 10/13/22 10/14/22 11:59 11:59 11:59 11:59 Intake Total 2300 / 2300 Output Total 1300 / 1300 1500 / 1500 Balance 2300 / 2300 -1300 / -1300 -1500 / -1500 Weight 220 lb Constitutional Constitutional: no acute distress *Routine HEENT Exam Head: Present normocephalic Eye: Absent conjunctival icterus or scleral injection ENT: Present mucous membranes moist *Routine Neck Exam Neck: Present supple *Routine Respiratory Exam Respiratory: Present CTA bilaterally *Routine Cardiovascular Exam Cardiovascular: Present RRR *Routine Abdominal Exam Abdominal: Present soft; Absent distended Comments: mild abdominal tenderness, appropriate for postop status *Routine Rectal Exam Patient deferred: visual exam and digital exam *Routine Exam Patient deferred: external exam *Routine Extremities Exam Extremities: Present edema *Routine Skin Exam Skin: Present intact and dry Comments: Incisions dry/intact without erythema or purulent drainage *Routine Neurological Exam Neurological: Present alert and oriented X3 Routine Psychiatric Exam Psychiatric: Present normal affect; Absent depressed DS: Diagnosis Discharge Diagnosis (1) Heavy menstrual bleeding: Status: Acute (2) Bulky or enlarged uterus: Status: Acute (3) Uterine fibroid: Status: Acute (4) S/P abdominal hysterectomy: Status: Acute (5) Status post bilateral salpingectomy: Status: Acute Meds Home Medications and Allergies Home Medications Medication Instructions Recorded Confirmed Type cetirizine 10 mg tablet 10 mg PO DAILY Allergy symptoms 01/15/22 10/12/22 History montelukast 10 mg tablet 10 mg PO PM Allergy symptoms 01/15/22 10/12/22 History fluticasone propionate 50 1 spr NS DAILY allergies 10/10/22 10/12/22 History mcg/actuation nasal spray,suspension medroxyprogesterone 10 mg tablet 10 mg PO BID hormones 10/10/22 10/12/22 History (Provera) metoprolol succinate 25 mg 25 mg PO DAILY Hypertension 10/10/22 10/12/22 History tablet,extended release 24 hr (Toprol XL) ibuprofen 400 mg tablet 800 mg PO Q6HP PRN Mild Pain #30 10/14/22 Rx tabs oxycodone 5 mg tablet 10 mg PO Q4HP PRN Moderate To 10/14/22 Rx Severe Pain #30 tabs New Prescriptions to Start Prescriptions: Vida Barber oxycodone Vida Kay Allergies Allergy/AdvReac Type Severity Reaction Status Date / Time chlorpheniramine Allergy Severe throat Verified 10/12/22 06:25 [From [facility]] swelling ph
--- NOTE | 2022-10-14 12:14 | PC.NURSE ---
Given Tylenol and Ibuprofen for a headache. See Mar.
--- NOTE | 2022-10-14 13:19 | PC.NURSE ---
Discharge instructions given to pt. Verbalized understanding. Denies any questions or concerns at this time. Denies any need for pain medication. Awaiting Med[facility] from [facility] for discharge.
--- NOTE | 2022-10-14 14:26 | EXP.ANES.II ---
[facility] Anesthesia Record Part II Anesthesia Record Part II Discharge Time: 11:53 (10/12/22) Destination: Obstetric PACU nurse assessment reviewed?: Yes Patient Condition:: Good Anesthesia Complications:: None Swallowing reflex intact?: Yes Cyanosis?: No Blood Pressure: 129/85 Pulse Rate: 101 Temperature: 97.9 F Mental Status: Alert & Oriented Pain level:: 0 Nausea and/or vomitting:: None Intake, IV Amount: 0
[2022-10-14 14:27] VITALS: BP 129/85; PULSE 101; TEMP 36.6
--- NOTE | 2022-10-14 14:35 | PC.NURSE ---
Pt received prescriptions from [facility].
== END 2022-10-14 14:43 | disposition home or self-care (01) | DRG 743 ==
LOC: OB 10-13 01:44
PROVIDERS: Admitting Provider Obstetrics & Gynecology; PCP Internal Medicine Adolescent Medicine; Visit Provider Obstetrics & Gynecology
PROC: 0UT90ZZ Resection of Uterus, Open Approach (ICD-10-PCS; principal; 2022-10-12 07:30)
DX: N92.0 Excessive and frequent menstruation with regular cycle (principal); N85.2 Hypertrophy of uterus; D25.9 Leiomyoma of uterus, unspecified; Z53.31 Laparoscopic surgical procedure converted to open procedure; I10 Essential (primary) hypertension; Z86.16 Personal history of COVID-19; Z87.442 Personal history of urinary calculi
CPT/HCPCS: 58150; 36415; 80048; 85014; 85018; 88307; 96374; C9803; J2405; U0003; U0005

== ENCOUNTER 2022-10-25 15:31 | Inpatient (IN) | payer BC, SELFPAY ==
[2022-10-25 16:30] VITALS: BP 139/75; PULSE 121; RESP 20; TEMP 36.9; O2SAT 99; BMI 36.6
[2022-10-25 16:33] VITALS: BMI 36.6
--- NOTE | 2022-10-25 16:33 | XR_ITS ---
PROCEDURE INFORMATION: Exam: XR Chest Exam date and time: 10/25/2022 5:18 PM Age: 42 years old Clinical indication: Other: Fever; Additional info: Fever, patient had hysterectomy a week or 2 ago TECHNIQUE: Imaging protocol: Radiologic exam of the chest. Views: 1 view. COMPARISON: CR XR CHEST 2V 02/06/2022 4:38 PM FINDINGS: Lungs: No evidence of pneumonia or interstitial edema. Pleural spaces: Unremarkable. No pleural effusion. No pneumothorax. Heart/Mediastinum: Unremarkable. No cardiomegaly. Bones/joints: Unremarkable. IMPRESSION: No evidence of pneumonia or interstitial edema.
[2022-10-25 16:50] LABS: Microscopic, Urine URINE MICROSCOPIC (MICROSCOPIC)
[2022-10-25 16:52] LABS: Appearance,Urine CLEAR (Clear); Blood, Urine 3+ (Negative); Color,Urine DK YELLOW (Yellow); Glucose,Urine (UA) Negative (Negative); Ketones,Urine 1+ (Negative); Leukocyte Esterase,Urine Negative (Negative); Nitrate,Urine POSITIVE (Negative); PH,Urine 5.5 (5.0-8.5); Protein,Urine 2+ (Negative); Specific Gravity, Urine >= 1.030 (1.005-1.030); Urobilinogen,Urine 0.2 EU/dl (0.2)
[2022-10-25 16:56] LABS: Coronavirus 19, PCR Not Detected (NotDetected); Influenza A, PCR Not Detected (NotDetected); Influenza B, PCR Not Detected (NotDetected)
[2022-10-25 17:02] LABS: Chloride 104 mmol/L (98-107); Potassium 3.5 mmoL/L (3.5-5.1); Sodium 137 mmol/L (136-145)
[2022-10-25 17:02] LABS: Bilirubin,Urine 1+ (Negative)
[2022-10-25 17:04] LABS: Alanine Aminotransferase 34 U/L (12-78); Aspartate Amino Transferase 32 U/L (14-36); Blood Urea Nitrogen 10 mg/dl (7-17); Creatinine Clearance Estimated 148 mL/min (50-200); Estimated Glomerular Filt Rate 91 ml/min (>60); GFR (African American) 111 ML/MIN (>60)
[2022-10-25 17:05] LABS: Albumin Level 4.2 g/dl (3.5-5.0); Albumin/Globulin Ratio 1.5 (1.1-1.8); Alkaline Phosphatase 103 U/L (38-126); Anion Gap 10.5 mEq/L (5-15); Bilirubin,Total 0.7 mg/dl (0.2-1.3); Calcium 9.3 mg/dl (8.4-10.2); Carbon Dioxide 26 mmol/L (22.0-30.0); Globulin 2.8 g/dL (1.3-3.2); Glucose 137 mg/dl (74-100)
[2022-10-25 17:06] LABS: Lactic Acid 1.7 mmol/L (0.7-2.1)
[2022-10-25 17:10] LABS: Basophils # 0.2 K/mm3 (0-0.2); Basophils % 0.6 % (0.1-2.0); Eosinophils # 0.1 K/mm3 (0.0-0.4); Eosinophils % 0.2 % (0.1-12.0); Hematocrit 38.5 % (37.0-47.0); Lymphocytes # 2.6 K/mm3 (0.7-4.5); Lymphocytes % 8.2 % (10-50); Mean Corpuscular HGB Conc 31.1 g/dL (31.8-35.4); Mean Corpuscular Hemoglobin 27.7 pg (27.0-31.2); Mean Corpuscular Volume 88.9 fl (81-99); Mean Platelet Volume 7.6 fl (7.4-10.4); Monocytes # 1.1 K/mm3 (0.1-1.0); Monocytes % 3.4 % (1.7-9.3); Neutrophils % 87.6 % (37.0-80.0); Platelet Count 665 K/mm3 (142-424); Red Blood Count 4.33 M/mm3 (4.20-5.40); Red Cell Distribution Width 13.3 % (11.5-17.5); White Blood Count 31.9 K/mm3 (4.8-10.8)
[2022-10-25 17:12] LABS: MANUAL DIFFERENTIAL MANUAL DIFFERENTIAL (MANUAL DIFF)
--- NOTE | 2022-10-25 17:13 | PC.NURSE ---
rounded on room 8 see if they needed anything. needed a warm blanket. went and got that for the pt
[2022-10-25 17:18] LABS: Bacteria,Urine 2+ /lpf; WBC,Urine Occasional #/hpf (0-3)
--- NOTE | 2022-10-25 17:35 | CT_ITS ---
PROCEDURE INFORMATION: Exam: CT Abdomen And Pelvis With Contrast Exam date and time: 10/25/2022 6:05 PM Age: 42 years old Clinical indication: Generalized; Prior surgery; Surgery date: <1 month; Surgery type: Patient had hysterectomy 10/12/2022. Patient HX: Abdominal pain post hysterectomy. ; Additional info: Post op hysterectomy TECHNIQUE: Imaging protocol: Computed tomography of the abdomen and pelvis with contrast. Radiation optimization: All CT scans at this facility use at least one of these dose optimization techniques: automated exposure control; mA and/or kV adjustment per patient size (includes targeted exams where dose is matched to clinical indication); or iterative reconstruction. Contrast material: ISOVUE; Contrast volume: 75 ml; Contrast route: IV; COMPARISON: US TRANSVAGINAL 03/21/2022 10:38 AM FINDINGS: Lungs: Lung bases are unremarkable. Liver: No focal hepatic lesions. Gallbladder and bile ducts: Gallbladder is distended without radiopaque cholelithiasis. No biliary ductal dilation. Pancreas: No peripancreatic fluid stranding. No main pancreatic ductal dilation. Spleen: No splenomegaly. Adrenal glands: The adrenal glands are normal. Kidneys and ureters: Nephrograms are symmetric. Nonobstructive right nephrolithiasis noted. No hydroureteronephrosis on either side. No solid lesions. Stomach and bowel: Unremarkable. No obstruction. No mucosal thickening. Appendix: A normal appendix is identified. Intraperitoneal space: stranding along the peritoneal reflections noted. Small amount of pelvic free fluid noted Vasculature: Aorta is nonaneurysmal. Lymph nodes: No evidence of retroperitoneal or mesenteric lymphadenopathy Urinary bladder: Urinary bladder is unremarkable. Reproductive: Status post hysterectomy. There is a walled-off collection containing air pockets in the pelvic region measuring 4 x 6.2 x 3.0 cm. (AP x TRV x SI). Bones/joints: Unremarkable. No acute fracture. Soft tissues: Foci of subcutaneous gas in the abdominal wall likely from recent subcutaneous injection. Mild stranding along the Pfannenstiel incision. IMPRESSION: There is a walled-off collection containing air pockets in the pelvic region measuring 4 x 6.2 x 3.0 cm. (AP x TRV x SI).
[2022-10-25 17:38] VITALS: BP 91/53; PULSE 109; O2SAT 99
[2022-10-25 17:39] LABS: Lymphocytes % 9 % (10-50); Monocytes % 3 % (2-9); Neutrophils % 88 % (42-76); Total Cells Counted 100
[2022-10-25 17:40] LABS: Hypochromasia 1+; Platelet Estimate Normal
--- NOTE | 2022-10-25 17:51 | HMH.EDGENADL ---
Discharge Plan Disposition Patient Disposition: Admitted As Inpatient Condition: Serious Clinical Impressions Clinical Impression: Sepsis, Abscess of pelvis Discharge ED Provider: Juan Reilly General Adult HPI General Chief complaint: Vaginal Bleeding Stated complaint: Hysterectomy 10/12 pain,fever Time Seen by Provider: 10/25/22 17:51 Mode of Arrival: Ambulatory Source of Information: Patient Limitations: No Limitations Description of Symptoms (Recalled from ER Triage Doc. by RN): c/o fever and heavy vaginal bleeding after hysterectomy 10/12. States the bleeding started heavy with having to change a pad every hour on 10/21. Incision site WNL History of Present Illness HPI narrative: The patient states that she had a hysterectomy by Dr. Kay on 10/12/2022. States she was doing well until 10/21/2022 when she began having some vaginal bleeding. Vaginal bleeding has increased. No clots or pus in the blood. Last night she began having lower back pain, lower abdominal pain, and a fever. She called Dr. Kay today and was advised to come to the emergency department. She has had some diarrhea. No vomiting. No URI symptoms. Related Data Home Medications Medication Instructions Recorded Confirmed cetirizine 10 mg tablet 10 mg PO DAILY Allergy symptoms 01/15/22 10/12/22 montelukast 10 mg tablet 10 mg PO PM Allergy symptoms 01/15/22 10/12/22 fluticasone propionate 50 1 spr NS DAILY allergies 10/10/22 10/12/22 mcg/actuation nasal spray,suspension metoprolol succinate 25 mg 25 mg PO DAILY Hypertension 10/10/22 10/12/22 tablet,extended release 24 hr (Toprol XL) Previous Rx's Medication Instructions Recorded acetaminophen 325 mg tablet 650 mg PO Q4HP PRN Mild Pain #30 10/14/22 tabs ibuprofen 400 mg tablet 800 mg PO Q6HP PRN Mild Pain #30 10/14/22 tabs oxycodone 5 mg tablet 10 mg PO Q4HP PRN Moderate To 10/14/22 Severe Pain #30 tabs Allergies Allergy/AdvReac Type Severity Reaction Status Date / Time chlorpheniramine Allergy Severe throat Verified 10/12/22 06:25 [From [facility]] swelling phenylephrine [From [facility]] Allergy Severe throat Verified 10/12/22 06:25 swelling pseudoephedrine [From [facility]] Allergy Severe throat Verified 10/12/22 06:25 swelling pyrilamine [From [facility]] Allergy Severe thraot Verified 10/12/22 06:25 swelling scopolamine [From [facility]] Allergy Severe throat Verified 10/12/22 06:25 swelling erythromycin base Allergy Other Verified 10/12/22 06:25 [facility] Disclaimer: The information contained in this section may have been updated after the patient was seen, as this information can be updated by other users. Medical History (Updated 10/25/22 @ 20:16 by Juan Reilly MD) History of COVID-19 History of hypertension Kidney stone Surgical History (Updated 10/13/22 @ 17:16 by Vida Kay MD) History of delivery History of tonsillectomy S/P abdominal hysterectomy Status post bilateral salpingectomy Family History Other Family history of cancer Family history of hyperlipidemia Family history of hypertension Family history of myocardial infarction Social History (Updated 10/12/22 @ 06:38 by Arlen Frias RN) Smoking Status: Unknown if ever smoked alcohol intake: never substance use type: denies use current occupational status: employed Travel in the last 8 weeks: None caffeine: Yes ROS Obtained: Yes Systems reviewed as appropriate & no additional complaints except as documented Constitutional Constitutional: Reports fever(s), Denies headache(s) and Denies weakness ENT Ears, Nose, Mouth, and Throat: Denies headache(s), Denies nasal discharge and Denies sore throat Cardiovascular Cardiovascular: Denies chest pain Respiratory Respiratory: Denies shortness of breath and Denies cough Gastrointestinal Gastrointestingal: Reports abdominal pain and jonathan
[2022-10-25 18:31] VITALS: BP 102/70; PULSE 104; O2SAT 100
--- NOTE | 2022-10-25 18:56 | PC.NURSE ---
had Dr Kay paged per ER doctor to speak with him about this pt
--- NOTE | 2022-10-25 19:09 | PC.NURSE ---
hs aware of pt admission to OB
[2022-10-25 20:13] VITALS: BP 105/68; PULSE 101; RESP 20; TEMP 36.9; O2SAT 100
[2022-10-25 20:45] VITALS: BP 105/61; PULSE 67; RESP 18; TEMP 37.6; O2SAT 98
[2022-10-25 23:14] VITALS: BP 116/63; PULSE 91; RESP 18; TEMP 37; O2SAT 98
--- NOTE | 2022-10-26 00:23 | PC.NURSE ---
late entry for 191 dr carbajal notified this nurse of admission from ER new orders as follows cbc,cmp and lactic acid level in am zosyn 3.375 g q6h normal saline at 150ml/hr regular diet tylenol 1g q6h for pain or fever ibuprofen 800mg q8h prn for pain or fever lovenox dvt prophylaxis notify pharmacy for dosing phone order repeated and verified at this time 2024: pharmacy notified for proper dosing of lovenox. spoke with jaguar lovenox 40mg subq daily for dvt prophylaxis
[2022-10-26 03:50] VITALS: BP 104/47; PULSE 81; RESP 16; TEMP 37.1; O2SAT 98
--- NOTE | 2022-10-26 03:51 | PC.NURSE ---
REASSESSMENT: NO ACUTE CHANGES NOTED, PT HAS RESTED OFF AND ON, UP FREQUENTLY TO BATHROOM, LUNGS REMAIN CLEAR, ABDOMEN SOFT, PT REPORTS TENDERNESS TO LLQ AND RLQ OF ABDOMEN, INCISION TO ABDOMEN NOT WELL APPROXIMATED AND REDNESS NOTED WITH SCAN PURULENT DRAINAGE NO CHANGE FROM PREVIOUS ASSESSMENT AT ARRIVAL TO UNIT, SMALL AMOUNT OF VAGINAL BLEEDING NOTED, URINE DARK CLOUDY RAMAKRISHNA IN COLOR WITH STRONG ODOR, HEADACHE SOMEWHAT BETTER WITH ADMINISTRATION OF TYLENOL AND IBUPROFEN, PT IS AFREBRILE AT THIS TIME, HIGHEST TEMPERATURE NOTED THIS SHIFT WAS 99.7 ORALLY, ANTIBIOTIC THERAPY CONTINUES PER MD ORDERS.
--- NOTE | 2022-10-26 07:22 | HMH.PHAINT1 ---
Pharmacy Intervention Comments: MEDICATION RECONCILIATION COMPLETED ON PATIENT USING EXTERNAL FILL HISTORY FROM PHARMACY. -VICKIE FRANCISCO, AMBERD
[2022-10-26 07:31] VITALS: BP 101/48; PULSE 88; RESP 18; TEMP 37.1; O2SAT 99
[2022-10-26 08:00] VITALS: O2SAT 98
[2022-10-26 08:15] LABS: Basophils # 0.1 K/mm3 (0-0.2); Basophils % 0.5 % (0.1-2.0); Chloride 111 mmol/L (98-107); Eosinophils # 0.3 K/mm3 (0.0-0.4); Eosinophils % 1.3 % (0.1-12.0); Hematocrit 31.1 % (37.0-47.0); Lymphocytes # 2.9 K/mm3 (0.7-4.5); Lymphocytes % 15.2 % (10-50); Mean Corpuscular HGB Conc 31.9 g/dL (31.8-35.4); Mean Corpuscular Hemoglobin 28.4 pg (27.0-31.2); Mean Corpuscular Volume 88.8 fl (81-99); Mean Platelet Volume 8.2 fl (7.4-10.4); Monocytes # 0.9 K/mm3 (0.1-1.0); Monocytes % 4.8 % (1.7-9.3); Neutrophils # 14.7 K/mm3 (1.8-7.8); Neutrophils % 78.2 % (37.0-80.0); Platelet Count 541 K/mm3 (142-424); Potassium 3.3 mmoL/L (3.5-5.1); Red Cell Distribution Width 13.6 % (11.5-17.5); Sodium 138 mmol/L (136-145); White Blood Count 18.9 K/mm3 (4.8-10.8)
[2022-10-26 08:18] LABS: Alanine Aminotransferase 23 U/L (12-78); Albumin Level 3.2 g/dl (3.5-5.0); Albumin/Globulin Ratio 1.3 (1.1-1.8); Alkaline Phosphatase 108 U/L (38-126); Anion Gap 8.3 mEq/L (5-15); Aspartate Amino Transferase 30 U/L (14-36); Bilirubin,Total 0.5 mg/dl (0.2-1.3); Blood Urea Nitrogen 8 mg/dl (7-17); Carbon Dioxide 22 mmol/L (22.0-30.0); Creatinine Clearance Estimated 173 mL/min (50-200); Estimated Glomerular Filt Rate 109 ml/min (>60); GFR (African American) 132 ML/MIN (>60); Globulin 2.5 g/dL (1.3-3.2); Total Protein,Serum 5.7 g/dl (6.3-8.2)
[2022-10-26 08:19] LABS: Calcium 8.2 mg/dl (8.4-10.2); Glucose 99 mg/dl (74-100); Lactic Acid 0.6 mmol/L (0.7-2.1)
[2022-10-26 08:26] LABS: MANUAL DIFFERENTIAL MANUAL DIFFERENTIAL (MANUAL DIFF)
[2022-10-26 08:27] LABS: Hemoglobin 9.9 g/dL (12.2-16.2)
--- NOTE | 2022-10-26 08:36 | EXP.HP ---
History of Present Illness *Admission Date: 10/25/22 *Reason for visit:: vaginal bleeding, fever *History of present illness: 42 yo 2 weeks postop from dignostic laparoscopy and total abdominal hysterectomy Postop course has been uncomplicated until this past sunday, which was 1.5 weeks postop, when she started having light vaginal bleeding The bleeding got heavier over sunday-sunday and she developed fever to 101 at home on Sunday She called the office on Sunday to report the bleeding and fever, and was advised to be evaluated in the ED Temp was 99.7 o initial assessment, but WBC markedly elevated 31.9 CT showed 4x6.2x3cm abscess at vaginal cuff She was admitted for IV antibiotics and started on Zosyn Repeat labs 12 hours later showed significant decrease in all parameters, indicating concentration initial specimen, however WBC still significantly elevated at 18.9 She reports that she feels significantly improved this morning, after several doses of zosyn vaginal bleeding has been light since admission, but upon review of a saved pad, it appears that the discharge is purulent and that the abscess may be spontaneously draining through the cuff [facility] Disclaimer: The information contained in this section may have been updated after the patient was seen, as this information can be updated by other users. Medical History History of COVID-19 History of hypertension Kidney stone Surgical History History of delivery History of tonsillectomy S/P abdominal hysterectomy Status post bilateral salpingectomy Family History Family history of cancer Family history of hypertension Family history of myocardial infarction Family history of hyperlipidemia Social History Smoking Status: Unknown if ever smoked alcohol intake: never substance use type: denies use current occupational status: employed Travel in the last 8 weeks: None caffeine: Yes Review of Systems Review of Systems Review of systems:: pertinent systems reviewed and negative unless documented below Constitutional Constitutional: Reports fever(s) *Genitourinary Genitourinary: Reports abnormal vaginal bleeding Meds Home Medications and Allergies Home Medications Medication Instructions Recorded Confirmed Type cetirizine 10 mg tablet 10 mg PO DAILY Allergy symptoms 02/20/22 11/30/22 History montelukast 10 mg tablet 10 mg PO PM Allergy symptoms 01/15/22 10/25/22 History fluticasone propionate 50 1 spr NS DAILY allergies 10/10/22 10/25/22 History mcg/actuation nasal spray,suspension metoprolol succinate 25 mg 25 mg PO DAILY Hypertension 10/10/22 10/25/22 History tablet,extended release 24 hr (Toprol XL) acetaminophen 325 mg tablet 650 mg PO Q4HP PRN Mild Pain #30 10/14/22 10/25/22 Rx tabs ibuprofen 400 mg tablet 800 mg PO Q6HP PRN Mild Pain #30 10/14/22 10/25/22 Rx tabs oxycodone 5 mg tablet 10 mg PO Q4HP PRN Moderate To 10/14/22 10/25/22 Rx Severe Pain #30 tabs New Prescriptions to Start Prescriptions: Allergies Allergy/AdvReac Type Severity Reaction Status Date / Time chlorpheniramine Allergy Severe throat Verified 10/12/22 06:25 [From [facility]] swelling phenylephrine [From [facility]] Allergy Severe throat Verified 10/12/22 06:25 swelling pseudoephedrine [From [facility]] Allergy Severe throat Verified 10/12/22 06:25 swelling pyrilamine [From [facility]] Allergy Severe thraot Verified 10/12/22 06:25 swelling scopolamine [From [facility]] Allergy Severe throat Verified 10/12/22 06:25 swelling erythromycin base Allergy Other Verified 10/12/22 06:25 Exam Data for Last 24 hours Vital signs and Labs for Last 24 Hours: Temp Pulse Resp BP Pulse Ox 98.9 F 88 18 114/61 99
[2022-10-26 08:47] LABS: Eosinophils % 2 % (0-3); Lymphocytes % 12 % (10-50); Monocytes % 14 % (2-9); Neutrophils % 72 % (42-76); Total Cells Counted 100
[2022-10-26 08:50] LABS: Anisocytosis 1+; Platelet Estimate Slight Increase; Poikilocytosis 1+
[2022-10-26 15:37] VITALS: BP 114/61; PULSE 88; RESP 18; TEMP 37.2; O2SAT 99
--- NOTE | 2022-10-26 18:34 | PC.NURSE ---
LATE ENTRY: 1450 PT UP TO SHOWER, PT TOLERATED WELL AND SHOWERED INDEPENDENTLY. LINENS CHANGED AT THIS TIME. 16:10 NO ACUTE CHANGES FROM PREVIOUS ASSESSMENT. PT HAS RESTED WELL MOST OF THE SHIFT WITH C/O OCCASIONAL HEADACHE OR GENERALIZED MALAISE. LUNGS ARE CTA BILATERALLY. MILD TENDERNESS NOTED OVER BLADDER. LTV INCISION CLEANSED DURING SHOWER. NO INCREASING WARMTH OR DRAINAGE NOTED TO INCISION- WOUND CULTURE OBTAINED EARLIER IN SHIFT BY DR MULLIGAN. PT REPORTS USING SMALLER PADS AND HAVING SMALL AMOUNT OF BROWN/PURULENT VAGINAL DISCHARGE.
--- NOTE | 2022-10-26 19:12 | PC.NURSE ---
REPORT GIVEN TO BEULAH DURHAM
--- NOTE | 2022-10-26 19:15 | PC.NURSE ---
REPORT RECIEVED FROM MARVA MILLS
--- NOTE | 2022-10-26 19:55 | PC.NURSE ---
ASSESSMENT DONE AT THIS TIME.PT REPORTS SHE DOES NOT FEEL WELL,TEMP WAS OK.98.6,B/P 117/68,P-89,R-18,SAT LEVEL ON RA 99%.DENIES ANY NAUSEA NOW AND HER PAIN IS MAYBE A 1-2.REPORTS SHE DID NOT HAVE MUCH VAG.BLEEDING IF ANY THE LAST FEW TIMES UP TO BATHROOM.URINE WAS RAMAKRISHNA IN COLOR IN THE MEASSURING HAT.500ML EMPTIED.WILL NO NEEDS OR CONCERNS VOICED
[2022-10-26 19:56] VITALS: BP 117/68; PULSE 89; RESP 18; TEMP 37; O2SAT 99
[2022-10-26 19:57] VITALS: O2SAT 99
--- NOTE | 2022-10-26 20:58 | PC.NURSE ---
PT LAYING IN BED.SALINE LOCK FLUSHED WITHOUT DIFF. AND ZOSYN HUNG.LOVENOX 40 MG GIVEN SQ IN ABD.PT HAD VOIDED AGAIN AND THE URINE WAS CLEAR AND YELLOW,PT DENIES ANY VAG,BLEEDING
--- NOTE | 2022-10-26 21:21 | PC.NURSE ---
ZOSYN INFUSED.SALINE LOCK FLUSHED,NO NEEDS OR CONCERNS VOICED.PT REPORTS SHE IS GOING TO TRY AND GET SOME SLEEP AFTER SHE GOES TO BATHROOM
[2022-10-27] VITALS (11 sets, daily range): BP systolic 104–120; BP diastolic 64–83; PULSE 85–96; RESP 17–18; TEMP 36.8–37.4; O2SAT 97–99
--- NOTE | 2022-10-27 03:32 | PC.NURSE ---
PT WOKE THIS MORING C/O GAS DISCOMFORT AND REQ SOMETHING FOR IT,MYLICON GIVEN.PT DENIES PASSING ANY FLATUS.PT VOIDING WITHOUT DIFF.CLEAR YELLOW URINE,SMALL AMT VAG.BLEEDING NOTED ON KOTEX PAD,LIGHT RED PURULENT DRAINAGE NOTED.INCISION OPEN TO AIR,LITLE REDDNESS WITHOUT DRAINAGE.LUNGS CLEAR,RESP.EVEN AND UNLABORED.PT REQ SCUDDS BE REMOVED FOR AWHILE,SHE IS HOT,TOLD HER THAT COULD LEAVE THEM OFF FOR A LITTLE WHILE,PT V/U.BOWEL SOUNDS NORMAL X 4 QUADS.AFEBRILE.PT REPORTS THAT SHE DID NOT FEEL THIS BAD WHEN SHE HAD HER PERIOD FOR 13 DAYS.OFFERED SOME TYLENOL AND MOTRIN AND SHE SAID YES,RATED PAIN A 3 ON SCALE OF 0-10
--- NOTE | 2022-10-27 05:18 | PC.NURSE ---
PT RANG OUT AND WANTED SOMETHING ELSE FOR PAIN,RATED HER PAIN A 5 ON SCALE OF 0-10,REPORTS SHE THINKS IT IS GAS PAIN AND SHE SAID SHE WAS NAUSEATED.ENCOURAGED PT AMBULATE OR ROCK IN ROCKING CHAIR TO GET THE GAS MOVING AND ZOFRAN 4MG IV GIVEN FOR NAUSEA.NO OTHER NEEDS OR CONCERNS VOICED
--- NOTE | 2022-10-27 05:52 | PC.NURSE ---
UPON ENTERING ROOM,PT WAS EASILY AROUSED,SHE REPORTS SHE DOZED OFF,BUT STILL HAS THE GAS PAIN,TOLD HER THAT I COULD GIVE HER SOME MORE MYLICON IN ABOUT 20-30 MINS,PT V/U,NO NEEDS OR CONCERNS VOICED
--- NOTE | 2022-10-27 07:08 | PC.NURSE ---
REPORT GIVEN TO ANDREYRN
[2022-10-27 07:55] LABS: Basophils % 0.3 % (0.1-2.0); Eosinophils # 0.5 K/mm3 (0.0-0.4); Eosinophils % 3.7 % (0.1-12.0); Hematocrit 30.7 % (37.0-47.0); Hemoglobin 10.2 g/dL (12.2-16.2); Lymphocytes # 1.8 K/mm3 (0.7-4.5); Lymphocytes % 14.3 % (10-50); Mean Corpuscular HGB Conc 33.4 g/dL (31.8-35.4); Mean Corpuscular Hemoglobin 28.2 pg (27.0-31.2); Mean Corpuscular Volume 84.7 fl (81-99); Mean Platelet Volume 7.7 fl (7.4-10.4); Monocytes # 0.4 K/mm3 (0.1-1.0); Monocytes % 3.1 % (1.7-9.3); Neutrophils # 10.1 K/mm3 (1.8-7.8); Neutrophils % 78.5 % (37.0-80.0); Platelet Count 615 K/mm3 (142-424); Red Blood Count 3.63 M/mm3 (4.20-5.40); Red Cell Distribution Width 13.4 % (11.5-17.5); White Blood Count 12.8 K/mm3 (4.8-10.8)
--- NOTE | 2022-10-27 09:05 | PC.NURSE ---
here to see pt.
--- NOTE | 2022-10-27 09:11 | CT_ITS ---
FINAL REPORT TECHNIQUE: After the administration of oral and intravenous contrast, axial images were obtained through the abdomen and pelvis by computed tomography. The study was performed with techniques to keep radiation dose as low as reasonably achievable, (ALARA). Individual dose reduction techniques using automated exposure control or adjustment of mA and/or kV according to the patient's size were employed. CLINICAL HISTORY: to compare to previous CT- Gastrophgrafin COMPARISON: October 25, 2022 FINDINGS: Abdomen: The lung bases are clear. There is mild fatty infiltration of the liver. The gallbladder is present. The spleen, pancreas, and adrenals appear unremarkable. There is a tiny nonobstructing stone in the right renal collecting system measuring 3 mm. The aorta is normal in caliber. There is no free fluid or adenopathy. Pelvis: The appendix is not identified. The urinary bladder is unremarkable. There is an air and fluid collection in the mid pelvis that is slightly smaller as compared to prior measuring 5.2 x 4.0 cm. Gastrografin is seen in a decompressed colon. There is no abnormal communication between the colon and the mid pelvic collection. A 4.1 x 1.5 cm fluid collection in the left anterior pelvic wall is less evident than on the prior exam. IMPRESSION: Redemonstration of mid pelvic abscess that is slightly smaller. No abnormal communication between the colon and abscess. Reviewed, Interpreted and Dictated by Cem Suárez MD Transcribed by Quoc Terrazas Authenticated and [facility]
--- NOTE | 2022-10-27 09:29 | PC.NURSE ---
Radiology here to give pt her Gastrografin.
--- NOTE | 2022-10-27 09:47 | PC.NURSE ---
Medicated with Zofran 4mg IV for nausea.
--- NOTE | 2022-10-27 10:02 | PC.NURSE ---
Pt has finished her Gastrografin
--- NOTE | 2022-10-27 12:22 | PC.NURSE ---
Pt taken to Radiology via w/c for CT
--- NOTE | 2022-10-27 12:34 | PC.NURSE ---
Pt back to room from CT scan
--- NOTE | 2022-10-27 12:52 | P.PN_ITS ---
Subjective *Date: 10/27/22 *Time: 12:52 Interval history: HD #3 pelvic abscess Treatment with IV Zosyn She has been afebrile since admission, with decreasing WBC WBC yesterday 18.9 and decreased to 12.8 today She is feeling worse today than she did yesterday, and reports lower pelvic cram ping and diarrhea She noted that she has had persistent diarrhea since time of hysterectomy, and has not had any normal BM over past 2 weeks She is tolerating a regular diet and denies nausea/vomiting Vaginal bleeding/drainage is slight but still present Medical Exam Vital signs and Labs for Last 24 Hours: Vital Signs Temp Pulse Resp BP Pulse Ox 10/27/22 08:26 99 10/27/22 08:23 98.3 F 92 H 17 120/71 99 10/27/22 03:25 98.5 F 86 18 104/74 L 99 10/27/22 00:30 98.6 F 85 18 110/64 97 10/26/22 19:57 99 10/26/22 19:56 98.6 F 89 18 117/68 99 10/26/22 15:37 98.9 F 88 18 114/61 99 Intake and Output 10/27/22 10/27/22 10/27/22 03:59 11:59 19:59 Output Total 400 / 1700 500 / 1700 Balance -400 / -1700 -500 / -1700 Output: Output, Urine Amount 400 / 1700 500 / 1700 Other: Number of Unmeasured Voids 1 Number of Bowel Movements 1 Laboratory Results - last 24 hr 10/27/22 07:15: WBC 12.8 H D, RBC 3.63 L, Hgb 10.2 L, Hct 30.7 L, MCV 84.7, MCH 28.2, MCHC 33.4, RDW 13.4, Plt Count 615 H, MPV 7.7, Neut % (Auto) 78.5, Lymph % (Auto) 14.3, [place] % (Auto) 3.1, Eos % (Auto) 3.7, Baso % (Auto) 0.3, Neut # (Auto) 10.1 H, Lymph # (Auto) 1.8, [place] # (Auto) 0.4, Eos # (Auto) 0.5 H, Baso # (Auto) 0.0 I & O for Labs for Last 24 Hours: Intake & Output 10/25/22 10/26/22 10/27/22 10/28/22 11:59 11:59 11:59 11:59 Output Total 1000 / 1000 1700 / 1700 Balance -1000 / -1000 -1700 / -1700 Weight 200 lb Microbiology Reports for the Last 24 Hours: Microbiology 10/25/22 16:35 Urine,Clean Catch Urine Culture - Final Escherichia coli 10/26/22 11:45 Abdomen Gram Stain - Final Comment:: No acute distress Comment:: breathing unlabored Comment:: Regular rate, normal peripheral pulses Comments:: abdomen soft, non-distended Mild tenderness bilateral lower quadrants Comment:: Incision dry/intact Assessment and Plan *Assessment and plan (1) Abscess of pelvis: Status: Acute Category: Medical (2) S/P abdominal hysterectomy: Status: Acute Category: Surgical Code(s): Z90.710 - Acquired absence of both cervix and uterus (3) BMI over 35: Status: Acute Category: Medical Plan Continue IV Zosyn Patient advised of recommendation for 48 hours IV antibiotics (or 48 hours since last fever) prior to discharge home on PO antibiotics Will repeat CT today to assess abscess size with current vaginal drainage Will also try to collect stool for culture in order to evaluate ongoing diarrhea
--- NOTE | 2022-10-27 15:00 | PC.NURSE ---
Pt up to shower. Bed linens changed. Room straightened.
--- NOTE | 2022-10-27 15:49 | PC.NURSE ---
Reports 5 diarrhea stools this shift thus far.
--- NOTE | 2022-10-27 20:50 | PC.NURSE ---
ZOSYN HUNG AT THIS TIME.LOVENOX 40MG GIVEN SQ IN ABD.SINCE PT HAD A LOW GRADE TEMP OF 99.2 AND SOME PAIN IN ABD,RATED IT A 1.TYLENOL 1000MG PO GIVEN
[2022-10-28] VITALS (7 sets, daily range): BP systolic 115–134; BP diastolic 68–86; PULSE 81–102; RESP 18; TEMP 36.9–37.7; O2SAT 98–100
--- NOTE | 2022-10-28 03:45 | PC.NURSE ---
PT HAS RESTED WELL TONIGHT,SHE DENIES ANY MORE DIARRHEA THUS FAR ON THIS SHIFT,LUNGS CLEAR,RESPS.EVEN AND UNLABORED.TEMP 98.8 THIS MORNING.PT VOIDING WITHOUT DIFF.INCISION OPEN TO AIR,NO DRAINAGE NOTED,PT REPORTS VERY LITTLE VAG.BLEEDING.IV ZOSYN INFUSED AND THEN SALINE LOCKED
[2022-10-28 09:04] LABS: Adenovirus F 40/41, stool Not Detected (NotDetected); Astrovirus Not Detected (NotDetected); Campylobacter Not Detected (NotDetected); Clostridium Difficile A/B, PCR Not Detected (NotDetected); Cyclospora Cayetanesis Not Detected (NotDetected); Entamoeba histolytica Not Detected (NotDetected); Enteroaggregative E coli Not Detected (NotDetected); Enteropathogenic E coli Not Detected (NotDetected); Enterotoxigenic E coli Not Detected (NotDetected); Giardia lamblia Not Detected (NotDetected); Norovirus Not Detected (NotDetected); Plesimonas Shigalloides, PCR Not Detected (NotDetected); Rotavirus A Not Detected (NotDetected); Salmonella, PCR Not Detected (NotDetected); Sapovirus Not Detected (NotDetected); Shiga-like toxin E coli Not Detected (NotDetected); Shigella Enterovasive E coli Not Detected (NotDetected); Vibrio Cholerae Not Detected (NotDetected); Vibrio, PCR Not Detected (NotDetected); Yersinia Entercolitica, PCR Not Detected (NotDetected)
[2022-10-28 09:42] LABS: Basophils % 0.4 % (0.1-2.0); Eosinophils # 0.3 K/mm3 (0.0-0.4); Eosinophils % 2.7 % (0.1-12.0); Hematocrit 31.3 % (37.0-47.0); Hemoglobin 10.4 g/dL (12.2-16.2); Lymphocytes # 1.6 K/mm3 (0.7-4.5); Lymphocytes % 13.5 % (10-50); Mean Corpuscular HGB Conc 33.2 g/dL (31.8-35.4); Mean Corpuscular Hemoglobin 28.4 pg (27.0-31.2); Mean Corpuscular Volume 85.5 fl (81-99); Mean Platelet Volume 7.6 fl (7.4-10.4); Monocytes # 0.4 K/mm3 (0.1-1.0); Monocytes % 3.3 % (1.7-9.3); Neutrophils # 9.8 K/mm3 (1.8-7.8); Neutrophils % 80.2 % (37.0-80.0); Platelet Count 663 K/mm3 (142-424); Red Blood Count 3.67 M/mm3 (4.20-5.40); Red Cell Distribution Width 13.5 % (11.5-17.5); White Blood Count 12.2 K/mm3 (4.8-10.8)
--- NOTE | 2022-10-28 10:24 | EXP.ACUTE.PN ---
Subjective *Date: 10/28/22 *Time: 10:24 Interval history: She is doing well although she does complain of some slightly increased discomfort in the suprapubic area. She also has some pain going into her right flank. Her creatinine and BUN are normal. She continues to have a low-grade temperature around 99. It was 99.9 this morning. Her white count has gone down to 12.2. She is eating and drinking and ambulating. She had diarrhea but has not had any since yesterday. We are waiting the results for C. difficile. Medical Exam Vital signs and Labs for Last 24 Hours: Vital Signs Temp Pulse Resp BP BP Pulse Ox 10/28/22 09:30 99.9 F H 10/28/22 07:45 98.4 F 81 18 116/81 116/81 98 10/28/22 07:45 98 10/28/22 03:10 98.8 F 88 18 131/68 99 10/27/22 21:30 98.9 F 10/27/22 20:00 99.2 F 89 18 114/70 98 10/27/22 20:15 98 10/27/22 16:10 99.0 F 10/27/22 15:47 99.3 F 87 17 110/68 10/27/22 13:55 99.2 F 10/27/22 12:35 99.3 F 96 H 18 117/83 98 Intake and Output 10/27/22 10/28/22 10/28/22 19:59 03:59 11:59 Intake Total 200 / 200 Output Total 0 / 0 Balance 200 / 200 Intake: Intake, Total IV Amount 200 / 200 Piperacillin/Tazo 3.375 gm In 0 200 / 200 .9 % Sodium Chloride 50 ml @ 100 mls/hr IV Q6H [facility] Rx#: [id number] Output: Output, Urine Amount 0 / 0 Other: Number of Unmeasured Voids 1 Laboratory Results - last 24 hr 10/28/22 09:05: WBC 12.2 H, RBC 3.67 L, Hgb 10.4 L, Hct 31.3 L, MCV 85.5, MCH 28.4, MCHC 33.2, RDW 13.5, Plt Count 663 H, MPV 7.6, Neut % (Auto) 80.2 H, Lymph % (Auto) 13.5, [place] % (Auto) 3.3, Eos % (Auto) 2.7, Baso % (Auto) 0.4, Neut # (Auto) 9.8 H, Lymph # (Auto) 1.6, [place] # (Auto) 0.4, Eos # (Auto) 0.3, Baso # (Auto) 0.0 I & O for Labs for Last 24 Hours: Intake & Output 10/25/22 10/26/22 10/27/22 10/28/22 11:59 11:59 11:59 11:59 Intake Total 200 / 200 Output Total 1000 / 1000 1700 / 1700 0 / 0 Balance -1000 / -1000 -1700 / -1700 200 / 200 Weight 200 lb Microbiology Reports for the Last 24 Hours: Microbiology 10/25/22 16:21 Blood Blood Culture - Preliminary NO GROWTH AFTER 48 HOURS 10/25/22 16:21 Blood Blood Culture - Preliminary NO GROWTH AFTER 48 HOURS 10/26/22 11:45 Abdomen Gram Stain - Final 10/26/22 11:45 Abdomen Wound Culture - Preliminary NO GROWTH AFTER 24 HOURS 10/25/22 16:35 Urine,Clean Catch Urine Culture - Final Escherichia coli Constitutional: Present no acute distress Comment:: She does not look to be ill. Head: Present atraumatic Neck: Present normal inspection Respiratory: Present normal respiratory effort; Absent respiratory distress Cardiac: Present Reg Rate and Rhythm GI: Present soft, tenderness, normal bowel sounds and scar; Absent distention, guarding, rebound or rigidity Comments:: Her incision is clean and dry and seems to be healing well. Rectal (female): Present deferred (female): Present deferred Extremities: Absent tenderness Assessment and Plan *Assessment and plan (1) Abscess of pelvis: Status: Acute Category: Medical (2) Sepsis: Status: Acute Category: Medical Code(s): A41.9 - Sepsis, unspecified organism (3) Status post bilateral salpingectomy: Status: Acute Category: Surgical Code(s): Z90.79 - Acquired absence of other genital organ(s) (4) S/P abdominal hysterectomy: Status: Acute Category: Surgical Code(s): Z90.710 - Acquired absence of both cervix and uterus (5) BMI over 35: Status: Acute Category: Medical Plan Since she continues to have a low-grade temperature and discomfort. We will continue with the IV antibiotics for now. I would like to keep her in for another 48 hours. She is eating and drinking and
--- NOTE | 2022-10-28 10:27 | PC.NURSE ---
1005: Dr Ambrose at bedside assessing and speaking with pt. Orders for Toradol 10mg PO q6hrs scheduled. Notified MD of pt refusing to wear scudds. Reviewed labs with MD, especially PLT count. No new orders or increase in lovenox.
[2022-10-28 10:52] LABS: Cryptosporidium Detected (NotDetected)
--- NOTE | 2022-10-28 11:00 | PC.NURSE ---
lab called to notify that patient's diarrhea panel has resulted cryptospiridium. Dr Ambrose notified who wishes to consult Dr Lyons. Dr Lyons is also aware and will be in to see pt shortly.
--- NOTE | 2022-10-28 11:58 | EXP.MED.CON ---
History of Present Illness *Admission Date: 10/25/22 *Reason for visit:: See notes below *History of present illness: 42 yo 2 weeks postop from dignostic laparoscopy and total abdominal hysterectomy Postop course has been uncomplicated until this past sunday, which was 1.5 weeks postop, when she started having light vaginal bleeding The bleeding got heavier over sunday-sunday and she developed fever to 101 at home on Sunday She called the office on Sunday to report the bleeding and fever, and was advised to be evaluated in the ED Temp was 99.7 o initial assessment, but WBC markedly elevated 31.9 CT showed 4x6.2x3cm abscess at vaginal cuff She was admitted for IV antibiotics and started on Zosyn Repeat labs 12 hours later showed significant decrease in all parameters, indicating concentration initial specimen, however WBC still significantly elevated at 18.9 She reports that she feels significantly improved this morning, after several doses of zosyn vaginal bleeding has been light since admission, but upon review of a saved pad, it appears that the discharge is purulent and that the abscess may be spontaneously draining through the cuff Above Per MED SPA MANAGER admission. I was asked to consult today because of persistent diarrhea that is actually been afflicting the patient since before her surgery. She reports that earlier in August she ate a food truck in [place] and the day afterwards she noticed some diarrhea and nausea. A coworker also had this and she improved but patient has not improved. She in the intermittent time went through her hysterectomy and the above-noted issues. She continues to have some diarrhea and this is worked up today here in the hospital with a PCR test that showed a positive test for Cryptosporidium. [facility] Disclaimer: The information contained in this section may have been updated after the patient was seen, as this information can be updated by other users. Medical History (Updated 10/28/22 @ 11:59 by Ata Lyons MD) History of COVID-19 History of hypertension Kidney stone Surgical History History of delivery History of tonsillectomy S/P abdominal hysterectomy Status post bilateral salpingectomy Family History Family history of cancer Family history of hypertension Family history of myocardial infarction Family history of hyperlipidemia Social History Smoking Status: Unknown if ever smoked alcohol intake: never substance use type: denies use current occupational status: employed Travel in the last 8 weeks: None caffeine: Yes Review of Systems Review of Systems Review of systems:: pertinent systems reviewed and negative unless documented below Constitutional Constitutional: Denies headache(s) and Denies weakness ENT Ears, Nose, Mouth, and Throat: Denies headache(s) *Musculoskeletal Musculoskeletal: Denies numbness *Neurologic Neurologic: Denies headache(s), Denies numbness and Denies weakness Meds Home Medications and Allergies Home Medications Medication Instructions Recorded Confirmed Type cetirizine 10 mg tablet 10 mg PO DAILY Allergy symptoms 01/15/22 10/25/22 History montelukast 10 mg tablet 10 mg PO PM Allergy symptoms 01/15/22 10/25/22 History fluticasone propionate 50 1 spr NS DAILY allergies 10/10/22 10/25/22 History mcg/actuation nasal spray,suspension metoprolol succinate 25 mg 25 mg PO DAILY Hypertension 10/10/22 10/25/22 History tablet,extended release 24 hr (Toprol XL) acetaminophen 325 mg tablet 650 mg PO Q4HP PRN Mild Pain #30 10/14/22 10/25/22 Rx tabs ibuprofen 400 mg tablet 800 mg PO Q6HP PRN Mild Pain #30 10/14/22 10/25/22 Rx tabs oxycodone 5 mg tablet 10 mg PO Q4HP PRN Moderate To 10/14/22 10/25/22 Rx Severe Pain #30 tabs New Prescriptions to Start Pre
--- NOTE | 2022-10-28 12:09 | EXP.PHA.PN ---
Subjective *Date: 10/28/22 *Time: 12:09 Medical Exam Vital signs and Labs for Last 24 Hours: Vital Signs Temp Pulse Resp BP BP Pulse Ox 10/28/22 11:38 18 10/28/22 09:30 99.9 F H 10/28/22 07:45 98.4 F 81 18 116/81 116/81 98 10/28/22 07:45 98 10/28/22 03:10 98.8 F 88 18 131/68 99 10/27/22 21:30 98.9 F 10/27/22 20:00 99.2 F 89 18 114/70 98 10/27/22 20:15 98 10/27/22 16:10 99.0 F 10/27/22 15:47 99.3 F 87 17 110/68 10/27/22 13:55 99.2 F 10/27/22 12:35 99.3 F 96 H 18 117/83 98 Intake and Output 10/27/22 10/28/22 10/28/22 23:59 07:59 15:59 Intake Total 200 / 200 Output Total 0 / 700 0 / 0 Balance 0 / -700 200 / 200 Intake: Intake, Total IV Amount 200 / 200 Piperacillin/Tazo 3.375 gm In 0 200 / 200 .9 % Sodium Chloride 50 ml @ 100 mls/hr IV Q6H [facility] Rx#: [id number] Output: Output, Urine Amount 0 / 700 0 / 0 Other: Number of Unmeasured Voids 1 Laboratory Results - last 24 hr 10/27/22 10:43: Stl Aeromonas (PCR) Not detected, Stl C. cayetanensis PCR Not detected, Stool Rotavirus (PCR) Not detected, Stl Adenov F 40/41 PCR Not detected, Stool Astrovirus (PCR) Not detected, Stool Campylobacter PCR Not detected, Stl C.difficile Tox PCR Not detected, Stool Cryptosporidium PCR Detected A, Stl E.coli Shiga Tox PCR Not detected, Stool E coli O157 PCR Not detected, Stl Enterotoxigenic E PCR Not detected, Stool EPEC (PCR) Not detected, Stool EAEC (PCR) Not detected, Stl E. histolytica PCR Not detected, Stool Giardia Lamblia PCR Not detected, Stool Salmonella PCR Not detected, Stool Sapovirus (PCR) Not detected, Stl P. shigelloides PCR Not detected, Stl Shigella/EIEC PCR Not detected, St Y.enterocolitica PCR Not detected, Stool Vibrio (PCR) Not detected, Stl Vibrio cholerae PCR Not detected, Stl Norovirus GI/GII PCR Not detected 10/28/22 09:05: WBC 12.2 H, RBC 3.67 L, Hgb 10.4 L, Hct 31.3 L, MCV 85.5, MCH 28.4, MCHC 33.2, RDW 13.5, Plt Count 663 H, MPV 7.6, Neut % (Auto) 80.2 H, Lymph % (Auto) 13.5, [place] % (Auto) 3.3, Eos % (Auto) 2.7, Baso % (Auto) 0.4, Neut # (Auto) 9.8 H, Lymph # (Auto) 1.6, [place] # (Auto) 0.4, Eos # (Auto) 0.3, Baso # (Auto) 0.0 I & O for Labs for Last 24 Hours: Intake & Output 10/25/22 10/26/22 10/27/22 10/28/22 23:59 23:59 23:59 23:59 Intake Total 200 / 200 Output Total 200 / 200 1800 / 1800 700 / 700 0 / 0 Balance -200 / -200 -1800 / -1800 -700 / -700 200 / 200 Weight 90.718 kg Microbiology Reports for the Last 24 Hours: Microbiology 10/25/22 16:21 Blood Blood Culture - Preliminary NO GROWTH AFTER 48 HOURS 10/25/22 16:21 Blood Blood Culture - Preliminary NO GROWTH AFTER 48 HOURS 10/26/22 11:45 Abdomen Gram Stain - Final 10/26/22 11:45 Abdomen Wound Culture - Preliminary NO GROWTH AFTER 24 HOURS 10/25/22 16:35 Urine,Clean Catch Urine Culture - Final Escherichia coli The patient's infection will respond to the chosen ABx?: Yes Is the patient receiving the right drug, dose, and route?: Yes Could a more targeted ABx be ordered?: No
--- NOTE | 2022-10-28 13:21 | PC.NURSE ---
DR DURAND INQUIRED ABOUT PT. UPDATED ON PT STATUS AND REQUESTED CBC FOR TOMORROW MORNING. MD OKAYED TO ENTER CBC. ALSO NOTIFIED MD OF INCREASED VAGINAL DISCHARGE/DRAINAGE PER PT.
--- NOTE | 2022-10-28 14:13 | PC.NURSE ---
IV DC'D WITH CATHETER INTACT, PT UP TO SHOWER. WILL REPLACE IV AFTER SHOWER.
--- NOTE | 2022-10-28 17:19 | PC.NURSE ---
LATE ENTRY: 1530 NEW IV INITIATED VIA ULTRASOUND BY NINI DURHAM AFTER 4 FAILED ATTEMPTS. PT NOW HAS #20 ANGIOCATH IN HER LEFT UPPER ARM. PT TOLERATED WELL.
--- NOTE | 2022-10-28 19:19 | PC.NURSE ---
LATE ENTRY: REASSESSMENT 1600: PT HAS RESTED INTERMITTENTLY T/O SHIFT. NO ACUTE CHANGES FROM INITIAL ASSESSMENT. LTV INCISION UNCHANGED WITH NO DRAINAGE NOTED. PT REPORTS MODERATE AMOUNT OF BROWN FOUL SMELLING VAGINAL DISCHARGE. PT HAS TOLERATED MANPREET TREATMENT FOR CRYPTOSPORIDIUM WELL AND WAS PROVIDED WITH EDUCATION MATERIALS REGARDING MEDICATION SIDE EFFECTS AND INDICATIONS. PT HAS BEEN AFEBRILE SINCE MORNING VITAL SIGNS. PT REPORTS ONE LOOSE STOOL TODAY.
[2022-10-29 01:15] VITALS: BP 128/58; PULSE 92; RESP 16; TEMP 36.9; O2SAT 97
[2022-10-29 04:00] VITALS: BP 122/69; PULSE 89; RESP 18; TEMP 36.9; O2SAT 96
--- NOTE | 2022-10-29 04:26 | PC.NURSE ---
0400 RN reassessment completed at this time. Pt reports resting well this shift. Pt denies any diarrhea since X4 episode at the beginning of the shift. Abd soft and mildly tender with BS active in all quads. Pt denies any nausea. Lung sounds CTA, no c/o SOA. 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 VSS. Bed locked and in lowest position with side rails up x2 and call light within reach. Pt encouraged to call out for any needs.
--- NOTE | 2022-10-29 08:30 | EXP.ACUTE.PN ---
Subjective *Date: 10/29/22 *Time: 08:30 Interval history: Patient continues to have some diarrhea, low-grade temperatures, under 100 ?F. Nurses report that her diarrhea has cleared. Her main complaint today is nasal drainage and some yellow discolored drainage from her left nostril is been present for several weeks. She wonders about having an ear infection. Medical Exam Vital signs and Labs for Last 24 Hours: Vital Signs Temp Pulse Pulse Resp BP BP Pulse Ox 10/29/22 04:00 98.5 F 89 18 122/69 96 10/29/22 01:15 98.4 F 92 H 16 128/58 L 97 10/28/22 19:30 98.8 F 91 H 18 125/75 100 10/28/22 17:59 98.8 F 102 H 18 134/86 99 10/28/22 13:20 99.0 F 87 18 115/78 98 10/28/22 11:38 18 10/28/22 09:30 99.9 F H Intake and Output 10/28/22 10/29/22 10/29/22 19:59 03:59 11:59 Output Total 500 / 500 Balance -500 / -500 Output: Output, Urine Amount 500 / 500 Other: Number of Unmeasured Voids 1 Number of Bowel Movements 4 Laboratory Results - last 24 hr 10/27/22 10:43: Stl Aeromonas (PCR) Not detected, Stl C. cayetanensis PCR Not detected, Stool Rotavirus (PCR) Not detected, Stl Adenov F 40/41 PCR Not detected, Stool Astrovirus (PCR) Not detected, Stool Campylobacter PCR Not detected, Stl C.difficile Tox PCR Not detected, Stool Cryptosporidium PCR Detected A, Stl E.coli Shiga Tox PCR Not detected, Stool E coli O157 PCR Not detected, Stl Enterotoxigenic E PCR Not detected, Stool EPEC (PCR) Not detected, Stool EAEC (PCR) Not detected, Stl E. histolytica PCR Not detected, Stool Giardia Lamblia PCR Not detected, Stool Salmonella PCR Not detected, Stool Sapovirus (PCR) Not detected, Stl P. shigelloides PCR Not detected, Stl Shigella/EIEC PCR Not detected, St Y.enterocolitica PCR Not detected, Stool Vibrio (PCR) Not detected, Stl Vibrio cholerae PCR Not detected, Stl Norovirus GI/GII PCR Not detected 10/28/22 09:05: WBC 12.2 H, RBC 3.67 L, Hgb 10.4 L, Hct 31.3 L, MCV 85.5, MCH 28.4, MCHC 33.2, RDW 13.5, Plt Count 663 H, MPV 7.6, Neut % (Auto) 80.2 H, Lymph % (Auto) 13.5, [place] % (Auto) 3.3, Eos % (Auto) 2.7, Baso % (Auto) 0.4, Neut # (Auto) 9.8 H, Lymph # (Auto) 1.6, [place] # (Auto) 0.4, Eos # (Auto) 0.3, Baso # (Auto) 0.0 I & O for Labs for Last 24 Hours: Intake & Output 10/26/22 10/27/22 10/28/22 10/29/22 11:59 11:59 11:59 11:59 Intake Total 200 / 200 Output Total 1000 / 1000 1700 / 1700 400 / 400 500 / 500 Balance -1000 / -1000 -1700 / -1700 -200 / -200 -500 / -500 Weight 200 lb Microbiology Reports for the Last 24 Hours: Microbiology 10/26/22 11:45 Abdomen Gram Stain - Final 10/26/22 11:45 Abdomen Wound Culture - Preliminary NO GROWTH AFTER 48 HOURS Comment:: Alert, pleasant. Oropharynx clear. Lungs are clear, abdomen soft, very minimal lower quadrant pain, other exam per CREDIT UNION TELLER. No rash. 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 Patient tolerated well. I would anticipate she would still have diarrhea given the length of course and her broad-spectrum antibiotic she is currently receiving. I have given instructions to pharmacy for a 3-day course of nitazoxanide. I have assured her that any bacterial sinus or otitis would be treated by her current antibiotic regimen. We will restart her home Flonase. I will sign off unless other needs arise.
[2022-10-29 08:45] VITALS: BP 109/71; PULSE 77; RESP 18; TEMP 36.8; O2SAT 100
[2022-10-29 09:20] LABS: HIV Screen 4th Generation wRfx Non Reactive (Non Reactive)
[2022-10-29 10:42] LABS: Basophils # 0.1 K/mm3 (0-0.2); Basophils % 0.6 % (0.1-2.0); Eosinophils # 0.4 K/mm3 (0.0-0.4); Eosinophils % 4.2 % (0.1-12.0); Hematocrit 30.4 % (37.0-47.0); Hemoglobin 10.2 g/dL (12.2-16.2); Lymphocytes # 2.1 K/mm3 (0.7-4.5); Lymphocytes % 20.2 % (10-50); Mean Corpuscular HGB Conc 33.4 g/dL (31.8-35.4); Mean Corpuscular Hemoglobin 28.2 pg (27.0-31.2); Mean Corpuscular Volume 84.6 fl (81-99); Mean Platelet Volume 7.1 fl (7.4-10.4); Monocytes # 0.6 K/mm3 (0.1-1.0); Monocytes % 5.6 % (1.7-9.3); Neutrophils # 7.2 K/mm3 (1.8-7.8); Neutrophils % 69.2 % (37.0-80.0); Platelet Count 650 K/mm3 (142-424); Red Cell Distribution Width 13.5 % (11.5-17.5); White Blood Count 10.4 K/mm3 (4.8-10.8)
--- NOTE | 2022-10-29 11:32 | EXP.ACUTE.PN ---
Subjective *Date: 10/29/22 *Time: 11:32 Interval history: She is doing better this morning. We discovered that she had Cryptosporidium and her stool sample. As result of that we have had her seen by DR. VALERA and he has started her on an antifungal. Her white count has come down to 10.2. She is completely afebrile. She no longer has a low-grade temperature. She still has some lower abdominal pain but it has improved. She is eating and drinking and ambulating. She says that she still has some loose bowel movements after eating. Medical Exam Vital signs and Labs for Last 24 Hours: Vital Signs Temp Pulse Pulse Resp BP BP Pulse Ox 10/29/22 08:45 98.3 F 77 18 109/71 L 100 10/29/22 04:00 98.5 F 89 18 122/69 96 10/29/22 01:15 98.4 F 92 H 16 128/58 L 97 10/28/22 19:30 98.8 F 91 H 18 125/75 100 10/28/22 17:59 98.8 F 102 H 18 134/86 99 10/28/22 13:20 99.0 F 87 18 115/78 98 10/28/22 11:38 18 Intake and Output 10/28/22 10/29/22 10/29/22 19:59 03:59 11:59 Intake Total 480 / 480 Output Total 500 / 500 Balance -500 / -20 480 / -20 Intake: Intake, Oral Amount 480 / 480 Output: Output, Urine Amount 500 / 500 Other: Number of Unmeasured Voids 1 Number of Bowel Movements 4 Laboratory Results - last 24 hr 10/28/22 12:47: HIV 1&2 Ag/Ab, 4th Gen Non reactive 10/29/22 10:37: WBC 10.4, RBC 3.60 L, Hgb 10.2 L, Hct 30.4 L, MCV 84.6, MCH 28.2, MCHC 33.4, RDW 13.5, Plt Count 650 H, MPV 7.1 L, Neut % (Auto) 69.2, Lymph % (Auto) 20.2, Taylor % (Auto) 5.6, Eos % (Auto) 4.2, Baso % (Auto) 0.6, Neut # (Auto) 7.2, Lymph # (Auto) 2.1, Taylor # (Auto) 0.6, Eos # (Auto) 0.4, Baso # (Auto) 0.1 I & O for Labs for Last 24 Hours: Intake & Output 10/26/22 10/27/22 10/28/22 10/29/22 11:59 11:59 11:59 11:59 Intake Total 200 / 200 480 / 480 Output Total 1000 / 1000 1700 / 1700 400 / 400 500 / 500 Balance -1000 / -1000 -1700 / -1700 -200 / -200 -20 / -20 Weight 200 lb Microbiology Reports for the Last 24 Hours: Microbiology 10/26/22 11:45 Abdomen Gram Stain - Final 10/26/22 11:45 Abdomen Wound Culture - Preliminary NO GROWTH AFTER 48 HOURS Constitutional: Present no acute distress Head: Present atraumatic ENT: Present normal exam Neck: Present normal inspection Respiratory: Present normal respiratory effort, able to speak in complete sentences and symmetric chest movement; Absent accessory muscle use or diminished air movement Cardiac: Present Reg Rate and Rhythm GI: Present soft, tenderness and incision (Looks clean and dry); Absent distention or guarding Rectal (female): Present deferred (female): Present deferred Extremities: Absent calf tenderness Skin: Present intact Assessment and Plan *Assessment and plan (1) 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 She is improved. She is receiving antifungal now for her Cryptosporidium. Her incision is clean and dry but. Her belly is soft. Her white count has come down to 10.2. She is afebrile. We will continue watching her for another day at least in order for her to get her complete treatment of the Cryptosporidium.
--- NOTE | 2022-10-29 12:10 | PC.NURSE ---
Pt's preet at bs visiting. She has brought her [employer] to eat for lunch.
--- NOTE | 2022-10-29 13:41 | PC.NURSE ---
IV secured and pt getting up to shower. Room has been straightened, trash emptied and bed linens changed.
[2022-10-29 15:43] VITALS: BP 109/69; PULSE 76; RESP 20; TEMP 36.8; O2SAT 99
--- NOTE | 2022-10-29 16:42 | PC.NURSE ---
Pt has rested well throughout the day. She has showered and had her bed linens changed. Continues bouts of diarrhea (especially after eating). She has been afebrile and vital signs have been stable. Tolerating regular diet. Continues Zosyn IV. +BS all quads. Passing flatus. Saline lock remains left upper arm. Flushes easily. LTV incision remains CAMACHO and healing well.
[2022-10-29 19:50] VITALS: BP 114/71; PULSE 86; RESP 18; TEMP 36.9; O2SAT 98
[2022-10-30 04:05] VITALS: BP 112/66; PULSE 84; RESP 16; TEMP 36.6; O2SAT 97
--- NOTE | 2022-10-30 04:07 | PC.NURSE ---
1605 RN reassessment completed. Pt has rested well this shift with no complaints. Medicated with scheduled toradol, doesn't voice any pain/discomfort. Pt reports no episodes of diarrhea this shift. Abd soft and nontender with BS active in all quads. LTV incision CAMACHO with no s/s infection. 20G IV in MONIKA infusing zosyn at this time without difficulty. VSS. No acute changes noted from initial assessment. Bed locked and in lowest position with side rails up x2, call light within reach. Encouraged pt to call out for any needs.
[2022-10-30 06:59] LABS: Basophils % 0.6 % (0.1-2.0); Eosinophils # 0.4 K/mm3 (0.0-0.4); Eosinophils % 5.6 % (0.1-12.0); Hematocrit 31.7 % (37.0-47.0); Hemoglobin 10.1 g/dL (12.2-16.2); Lymphocytes # 2.1 K/mm3 (0.7-4.5); Lymphocytes % 27.9 % (10-50); Mean Corpuscular HGB Conc 31.9 g/dL (31.8-35.4); Mean Corpuscular Hemoglobin 27.6 pg (27.0-31.2); Mean Corpuscular Volume 86.5 fl (81-99); Mean Platelet Volume 7.3 fl (7.4-10.4); Monocytes # 0.4 K/mm3 (0.1-1.0); Monocytes % 4.9 % (1.7-9.3); Neutrophils # 4.6 K/mm3 (1.8-7.8); Neutrophils % 61.1 % (37.0-80.0); Platelet Count 677 K/mm3 (142-424); Red Blood Count 3.66 M/mm3 (4.20-5.40); Red Cell Distribution Width 13.5 % (11.5-17.5); White Blood Count 7.5 K/mm3 (4.8-10.8)
[2022-10-30 07:17] LABS: Chloride 110 mmol/L (98-107); Potassium 3.8 mmoL/L (3.5-5.1); Sodium 137 mmol/L (136-145)
[2022-10-30 07:20] LABS: Alanine Aminotransferase 26 U/L (12-78); Albumin Level 3.5 g/dl (3.5-5.0); Albumin/Globulin Ratio 1.2 (1.1-1.8); Alkaline Phosphatase 92 U/L (38-126); Anion Gap 5.8 mEq/L (5-15); Aspartate Amino Transferase 39 U/L (14-36); Blood Urea Nitrogen 6 mg/dl (7-17); Carbon Dioxide 25 mmol/L (22.0-30.0); Creatinine Clearance Estimated 173 mL/min (50-200); Estimated Glomerular Filt Rate 109 ml/min (>60); GFR (African American) 132 ML/MIN (>60); Globulin 2.9 g/dL (1.3-3.2); Glucose 105 mg/dl (74-100); Total Protein,Serum 6.4 g/dl (6.3-8.2)
[2022-10-30 07:25] LABS: Bilirubin,Total 0.1 mg/dl (0.2-1.3)
[2022-10-30 09:30] VITALS: BP 124/74; PULSE 73; RESP 17; TEMP 36.9; O2SAT 96
--- NOTE | 2022-10-30 09:35 | EXP.DC.SUM ---
General Admission date:: 10/25/22 Discharge date: 10/30/22 HPI HPI HPI: 42 yo 2 weeks postop from dignostic laparoscopy and total abdominal hysterectomy Postop course has been uncomplicated until this past sunday, which was 1.5 weeks postop, when she started having light vaginal bleeding The bleeding got heavier over sunday-sunday and she developed fever to 101 at home on Sunday She called the office on Sunday to report the bleeding and fever, and was advised to be evaluated in the ED Temp was 99.7 o initial assessment, but WBC markedly elevated 31.9 CT showed 4x6.2x3cm abscess at vaginal cuff She was admitted for IV antibiotics and started on Zosyn Repeat labs 12 hours later showed significant decrease in all parameters, indicating concentration initial specimen, however WBC still significantly elevated at 18.9 She reports that she feels significantly improved this morning, after several doses of zosyn vaginal bleeding has been light since admission, but upon review of a saved pad, it appears that the discharge is purulent and that the abscess may be spontaneously draining through the cuff Above 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 I was asked to consult today because of persistent diarrhea that is actually been afflicting the patient since before her surgery. She reports that earlier in August she ate a food truck in [place] and the day afterwards she noticed some diarrhea and nausea. A coworker also had this and she improved but patient has not improved. She in the intermittent time went through her hysterectomy and the above-noted issues. She continues to have some diarrhea and this is worked up today here in the hospital with a PCR test that showed a positive test for Cryptosporidium. Hospital Course Hospital Course Hospital Course: She was admitted and had a sepsis work-up. She was started on IV Zosyn. She subsequently was found to have Cryptosporidium in her stool and was seen by Dr. Pedraza. He has started her on an antifungal for this. She is improved over the weekend. She had a CT scan that showed a 4 cm possible pelvic abscess and a subsequent CTA showed some decrease in size of this abscess. She continues to have some drainage from the vagina. She says it has a foul smell. CT with contrast did not show evidence of a bowel injury. She has steadily improve day by day and her white count has come down to 7.5 today. She is eating and drinking and ambulating. She still continues to have some diarrhea she says. She will get a total of 6 doses of the medication for her Cryptosporidium. She has had 5 doses as of this morning and will get a prescription for another dose this evening. She is discharged home to follow-up with Dr. Kay later this week. She will continue with her home medications. She was given a prescription for her antifungal. She will take Bactrim and Flagyl for the next 10 days for the pelvic abscess. She was given the usual instructions with respect to limiting her activity, driving and sexual activity. Her condition on discharge is stable and improved. Exam Data for Last 24 hours Vital signs and Labs for Last 24 Hours: Temp Pulse Resp BP Pulse Ox 98.5 F 73 17 124/74 96 10/30/22 09:30 10/30/22 09:30 10/30/22 09:30 10/30/22 09:30 10/30/22 09:30 Laboratory Results - last 24 hr 10/29/22 10:37: WBC 10.4, RBC 3.60 L, Hgb 10.2 L, Hct 30.4 L, MCV 84.6, MCH 28.2, MCHC 33.4, RDW 13.5, Plt Count 650 H, MPV 7.1 L, Neut % (Auto) 69.2, Lymph % (Auto) 20.2, [place] % (Auto) 5.6, Eos % (Auto) 4.2, Baso % (Auto) 0.6, Neut # (Auto) 7.2, Lymph # (Auto) 2.1, [place] # (Auto) 0.6, Eos # (Auto) 0.4, Baso # (Auto) 0.1 10/30/22 06:50: WBC 7.5 D, RBC 3.66 L, Hgb 10.1 L, Hct 31.7 L, MCV 86.5, MCH 27.6, MCHC 31.9, RDW 13.5, Plt Count 677 H, MPV 7.3 L, Neut % (Auto) 61.1, Lymph % (Auto) 27.9, [place] % (Auto) 4.9, Eos % (Auto) 5.6, Baso % (Auto) 0.6, Neut # (Auto) 4.6, Lymph # (Auto) 2.1, [place]ie # (Auto) 0.4, Eos # (Auto) 0.4, Baso
[2022-10-30 09:42] VITALS: O2SAT 96
--- NOTE | 2022-10-30 10:05 | PC.NURSE ---
Discharge education gone over at this time, questions encouraged and answered. Iv removed at this time, pt tolerated well, gauze and coband applied to site. pt istructions on removal given. pt v/u at this time.
--- NOTE | 2022-10-30 11:00 | PC.NURSE ---
all charting and care done under my direct supervision.
--- NOTE | 2022-10-30 11:25 | PC.NURSE ---
Pt ambultory off the unit at this time a.o by , no questions at this time.
== END 2022-10-30 11:25 | disposition home or self-care (01) | DRG 872 ==
LOC: ER 16:46 → OB 19:19
PROVIDERS: Nurse Practitioner Obstetrics & Gynecology; Admitting Provider Obstetrics & Gynecology; Emergency Provider Emergency Medicine; PCP Internal Medicine Adolescent Medicine; Visit Provider Obstetrics & Gynecology
DX: A41.9 Sepsis, unspecified organism (principal); A07.2 Cryptosporidiosis; N73.9 Female pelvic inflammatory disease, unspecified; I10 Essential (primary) hypertension; Z86.16 Personal history of COVID-19
CPT/HCPCS: 36415; 71045; 74177; 80053; 81001; 83605; 85007; 85025; 86703; 87040; 87045; 87070; 87086; 87088; 87186; 87205; 87507; 99285; C9803; G0432; J2405; J2543; Q9967; U0003; U0005

== ENCOUNTER → 2022-11-09 11:20 | Outpatient (CLI) | payer BC, SELFPAY ==
[2022-11-09 11:28] LABS: MANUAL DIFFERENTIAL MANUAL DIFFERENTIAL (MANUAL DIFF)
[2022-11-09 12:05] LABS: Basophils # 0.1 K/mm3 (0-0.2); Basophils % 1.1 % (0.1-2.0); Eosinophils # 0.4 K/mm3 (0.0-0.4); Eosinophils % 3.6 % (0.1-12.0); Hematocrit 36.1 % (37.0-47.0); Hemoglobin 11.4 g/dL (12.2-16.2); Lymphocytes # 2.6 K/mm3 (0.7-4.5); Lymphocytes % 26.5 % (10-50); Mean Corpuscular HGB Conc 31.7 g/dL (31.8-35.4); Mean Corpuscular Hemoglobin 27.3 pg (27.0-31.2); Mean Corpuscular Volume 86.1 fl (81-99); Mean Platelet Volume 7.6 fl (7.4-10.4); Monocytes # 0.5 K/mm3 (0.1-1.0); Monocytes % 5.1 % (1.7-9.3); Neutrophils # 6.3 K/mm3 (1.8-7.8); Neutrophils % 63.7 % (37.0-80.0); Platelet Count 523 K/mm3 (142-424); Red Blood Count 4.19 M/mm3 (4.20-5.40); Red Cell Distribution Width 14.2 % (11.5-17.5); White Blood Count 9.8 K/mm3 (4.8-10.8)
[2022-11-09 12:36] LABS: Alanine Aminotransferase 29 U/L (12-78); Albumin Level 4.3 g/dl (3.5-5.0); Albumin/Globulin Ratio 1.7 (1.1-1.8); Alkaline Phosphatase 105 U/L (38-126); Anion Gap 11.9 mEq/L (5-15); Aspartate Amino Transferase 43 U/L (14-36); Blood Urea Nitrogen 9 mg/dl (7-17); Calcium 9.9 mg/dl (8.4-10.2); Carbon Dioxide 25 mmol/L (22.0-30.0); Chloride 106 mmol/L (98-107); Estimated Glomerular Filt Rate 91 ml/min (>60); GFR (African American) 111 ML/MIN (>60); Globulin 2.6 g/dL (1.3-3.2); Glucose 86 mg/dl (74-100); Potassium 4.9 mmoL/L (3.5-5.1); Sodium 138 mmol/L (136-145); Total Protein,Serum 6.9 g/dl (6.3-8.2)
[2022-11-09 12:37] LABS: Bilirubin,Total < 0.1 mg/dl (0.2-1.3)
[2022-11-09 13:34] LABS: Eosinophils % 4 % (0-3); Lymphocytes % 33 % (10-50); Monocytes % 7 % (2-9); Neutrophils % 56 % (42-76); Platelet Estimate Slight Increase; RBC Morphology Normal; Total Cells Counted 100
== END ==
PROVIDERS: PCP Internal Medicine Adolescent Medicine; Visit Provider Obstetrics & Gynecology
DX: A07.2 Cryptosporidiosis (principal); N39.0 Urinary tract infection, site not specified
CPT/HCPCS: 36415; 80053; 85007; 85014; 85018; 85048; 85049

== ENCOUNTER → 2022-11-16 08:43 | Outpatient (CLI) | payer BC, SELFPAY ==
--- NOTE | 2022-11-16 08:43 | CT_ITS ---
FINAL REPORT TECHNIQUE: Axial CT images of the abdomen and pelvis were obtained before and after the administration of IV contrast. Oral contrast was administered.This study was performed with techniques to keep radiation doses as low as reasonably achievable (ALARA). Individualized dose reduction techniques using automated exposure control or adjustment of mA and/or kV according to the patient''s size were employed. CLINICAL HISTORY: pelvis abscess COMPARISON: October 27, 2022 FINDINGS: Abdomen: The lung bases are clear. The heart is normal in size. The liver has an unremarkable appearance, without evidence of mass or biliary duct dilatation. The spleen is unremarkable. No adrenal masses present. The pancreas has an unremarkable appearance. The kidneys enhance normally. The aorta is normal in caliber. There is no free fluid or adenopathy. No mass or abnormal fluid collection is seen. Precontrast images demonstrate several less than 3 mm renal stones. There is mild fatty infiltration of the liver. There is mild fatty infiltration of the liver. Pelvis: The appendix is normal. The urinary bladder is unremarkable. There is a 34 mm probable cyst in the left ovary which is larger than on the prior. There has been interval improvement in the air and fluid collection in the mid pelvis, just superior to the vaginal cuff. It measures 40 x 17 mm and was previously 52 x 40 mm. It is visually significantly smaller. There is less gas and less fluid within it. There is persistent inflammatory stranding in the pelvis. There is no evidence of bowel obstruction. IMPRESSION: Improved mid pelvic abscess. Worsening left ovarian cystic mass, favor an ovarian cyst. Could be further evaluated with follow-up ultrasound. Small nonobstructing renal stones. Reviewed, Interpreted and Dictated by Prakash Hernández III, MD Transcribed by Carolyn Garibay Authenticated and [facility]
== END ==
PROVIDERS: PCP Internal Medicine Adolescent Medicine; Visit Provider Obstetrics & Gynecology
DX: N73.9 Female pelvic inflammatory disease, unspecified (principal)
CPT/HCPCS: 74177; Q9967

== ENCOUNTER 2022-11-19 05:21 | Emergency (ER) | payer BC, SELFPAY ==
[2022-11-19 05:23] VITALS: BP 136/67; PULSE 84; RESP 17; TEMP 36.5; O2SAT 98; BMI 36.6
[2022-11-19 05:36] VITALS: BMI 36.6
--- NOTE | 2022-11-19 05:37 | CT_ITS ---
PROCEDURE INFORMATION: Exam: CT Abdomen And Pelvis Without Contrast Exam date and time: 11/19/2022 5:47 AM Age: 42 years old Clinical indication: Nausea and vomiting; Abdominal pain; Flank; Right; Prior surgery; Surgery date: 1-6 months; Surgery type: Hysterectomy in September; Additional info: R flank pain, straining to void, known stones TECHNIQUE: Imaging protocol: Computed tomography of the abdomen and pelvis without contrast. Radiation optimization: All CT scans at this facility use at least one of these dose optimization techniques: automated exposure control; mA and/or kV adjustment per patient size (includes targeted exams where dose is matched to clinical indication); or iterative reconstruction. COMPARISON: CT ABDOMEN PELVIS W CON 11/16/2022 8:57 AM FINDINGS: Liver: Normal. No mass. Gallbladder and bile ducts: Normal. No calcified stones. No ductal dilation. Pancreas: Normal. No ductal dilation. Spleen: Normal. No splenomegaly. Adrenal glands: Normal. No mass. Kidneys and ureters: A 2 mm distal right ureteral stone is present with moderate right-sided hydroureter and hydronephrosis. Stomach and bowel: Unremarkable. No obstruction. No mucosal thickening. Appendix: No evidence of appendicitis. Intraperitoneal space: Unremarkable. No free air. No significant fluid collection. Vasculature: Unremarkable. No abdominal aortic aneurysm. Lymph nodes: Unremarkable. No enlarged lymph nodes. Urinary bladder: Unremarkable as visualized. Reproductive: Prior hysterectomy.. Bones/joints: Unremarkable. No acute fracture. Soft tissues: Unremarkable. IMPRESSION: 2 mm distal right ureteral stone with moderate right-sided hydronephrosis and hydroureter.
--- NOTE | 2022-11-19 05:45 | PC.NURSE ---
Pt gone to RAD
--- NOTE | 2022-11-19 05:50 | PC.NURSE ---
Pt back from RAD
[2022-11-19 05:59] LABS: Microscopic, Urine URINE MICROSCOPIC (MICROSCOPIC)
[2022-11-19 06:06] LABS: Basophils # 0.1 K/mm3 (0-0.2); Basophils % 0.7 % (0.1-2.0); Eosinophils # 0.2 K/mm3 (0.0-0.4); Eosinophils % 1.3 % (0.1-12.0); Hematocrit 36.3 % (37.0-47.0); Hemoglobin 11.7 g/dL (12.2-16.2); Lymphocytes # 2.2 K/mm3 (0.7-4.5); Lymphocytes % 15.9 % (10-50); Mean Corpuscular HGB Conc 32.2 g/dL (31.8-35.4); Mean Corpuscular Hemoglobin 26.9 pg (27.0-31.2); Mean Corpuscular Volume 83.4 fl (81-99); Mean Platelet Volume 7.3 fl (7.4-10.4); Monocytes # 0.5 K/mm3 (0.1-1.0); Monocytes % 3.7 % (1.7-9.3); Neutrophils # 11.1 K/mm3 (1.8-7.8); Neutrophils % 78.4 % (37.0-80.0); Platelet Count 614 K/mm3 (142-424); Red Blood Count 4.36 M/mm3 (4.20-5.40); Red Cell Distribution Width 14.2 % (11.5-17.5); White Blood Count 14.1 K/mm3 (4.8-10.8)
[2022-11-19 06:11] LABS: Alanine Aminotransferase 49 U/L (12-78); Albumin Level 4.5 g/dl (3.5-5.0); Albumin/Globulin Ratio 1.5 (1.1-1.8); Alkaline Phosphatase 95 U/L (38-126); Anion Gap 10.7 mEq/L (5-15); Aspartate Amino Transferase 54 U/L (14-36); Bilirubin,Total 0.4 mg/dl (0.2-1.3); Blood Urea Nitrogen 9 mg/dl (7-17); Calcium 9.6 mg/dl (8.4-10.2); Carbon Dioxide 26 mmol/L (22.0-30.0); Chloride 105 mmol/L (98-107); Creatinine Clearance Estimated 130 mL/min (50-200); Estimated Glomerular Filt Rate 78 ml/min (>60); GFR (African American) 95 ML/MIN (>60); Globulin 3.1 g/dL (1.3-3.2); Glucose 141 mg/dl (74-100); Potassium 3.7 mmoL/L (3.5-5.1); Sodium 138 mmol/L (136-145); Total Protein,Serum 7.6 g/dl (6.3-8.2)
[2022-11-19 06:19] LABS: Appearance,Urine CLOUDY (Clear); Blood, Urine 3+ (Negative); Color,Urine YELLOW (Yellow); Glucose,Urine (UA) Negative (Negative); Ketones,Urine Negative (Negative); Leukocyte Esterase,Urine TRACE (Negative); Nitrate,Urine Negative (Negative); PH,Urine 5.5 (5.0-8.5); Protein,Urine 1+ (Negative); Specific Gravity, Urine >= 1.030 (1.005-1.030); Urobilinogen,Urine 0.2 EU/dl (0.2)
[2022-11-19 06:33] LABS: Bilirubin,Urine 1+ (Negative)
[2022-11-19 06:36] LABS: Bacteria,Urine 1+ /lpf
--- NOTE | 2022-11-19 06:46 | HMH.EDGENADL ---
Discharge Plan Disposition Patient Disposition: Home, Self-Care Condition: Good Prescriptions Prescriptions: New ketorolac 10 mg tablet 10 mg PO Q8H Qty: 16 0RF ondansetron 4 mg tablet,disintegrating 4 mg PO Q8H PRN (Reason: nausea and vomiting) 4 Days Qty: 10 0RF tamsulosin [Flomax] 0.4 mg capsule 0.4 mg PO DAILY Qty: 30 0RF hydrocodone-acetaminophen 5-325 mg tablet 1 tab PO Q6H PRN (Reason: pain) Qty: 12 0RF No Action cetirizine 10 MG tablet 10 mg PO DAILY montelukast 10 MG tablet 10 mg PO PM metoprolol succinate [Toprol XL] 25 mg tablet extended release 24 hr 25 mg PO DAILY fluticasone propionate 120 SPR/BOT spray,suspension 1 spr intranasal DAILY cephalexin 500 mg capsule 500 mg PO BID Referrals Follow up/Referrals: Ata Lyons MD [Primary Care Provider] - See instructions Activity Restrictions/Add. Instructions Additional Instructions/Restrictions: Medications as directed. Return to ER for fever. Follow-up PCP/urology in 1 to 2 days. Clinical Impressions Clinical Impression: Ureterolithiasis, Hydronephrosis Instructions Patient Instructions: DI for Kidney Stones Discharge ED Provider: [facility] HPI General Chief complaint: PAIN Stated complaint: lower back pain,unable to void,vomiting Time Seen by Provider: 11/19/22 06:43 Mode of Arrival: Family Vehicle Source of Information: Patient Limitations: No Limitations Description of Symptoms (Recalled from ER Triage Doc. by RN): PT c/o R flank pain with nausea and vomiting. She also reports urinary frequency and urgency with little output. Pt had a hysterectomy on 10/[address] Kay. She developed a pelvic abcess and was hospitalized 10/25-10/30. Pt is currently being treated for a UTI with Keflex (11/13). Pt also states she developed Cryptosporidium during that hospital stay (10/27). History of Present Illness HPI narrative: 42yo F with past medical history of kidney stones presents to the emergency department secondary to right flank pain with nausea and vomiting. Symptoms began early this morning. No recent illness. Taking home medication as directed. Complains of urinary frequency and diminished output. Related Data Home Medications Medication Instructions Recorded Confirmed cetirizine 10 mg tablet 10 mg PO DAILY Allergy symptoms 01/15/22 11/19/22 montelukast 10 mg tablet 10 mg PO PM Allergy symptoms 01/15/22 11/19/22 fluticasone propionate 50 1 spr intranasal DAILY allergies 10/10/22 11/19/22 mcg/actuation nasal spray,suspension metoprolol succinate 25 mg 25 mg PO DAILY Hypertension 10/10/22 11/19/22 tablet,extended release 24 hr (Toprol XL) cephalexin 500 mg capsule 500 mg PO BID uti 11/19/22 11/19/22 Previous Rx's Medication Instructions Recorded hydrocodone 5 mg-acetaminophen 325 1 tab PO Q6H PRN pain #12 tabs 11/19/22 mg tablet ketorolac 10 mg tablet 10 mg PO Q8H #16 tabs 11/19/22 ondansetron 4 mg disintegrating 4 mg PO Q8H PRN nausea and 11/19/22 tablet vomiting 4 days #10 tabs tamsulosin 0.4 mg capsule (Flomax) 0.4 mg PO DAILY #30 caps 11/19/22 Allergies Allergy/AdvReac Type Severity Reaction Status Date / Time chlorpheniramine Allergy Severe throat Verified 11/09/22 10:42 [From [facility]] swelling phenylephrine [From [facility]] Allergy Severe throat Verified 11/09/22 10:42 swelling pseudoephedrine [From [facility]] Allergy Severe throat Verified 11/09/22 10:42 swelling pyrilamine [From [facility]] Allergy Severe thraot Verified 11/09/22 10:42 swelling scopolamine [From [facility]] Allergy Severe throat Verified 11/09/22 10:42 swelling erythromycin base Allergy Other Verified 11/09/22 10:42 PFS PFS Disclaimer: The information contained in this section may have been updated after the patient was seen, as this information can be updated by other users. Medical History
[2022-11-19 06:51] VITALS: BP 130/60; PULSE 82; RESP 18; TEMP 36.6; O2SAT 99
== END 2022-11-19 07:00 | disposition home or self-care (01) ==
PROVIDERS: Emergency Provider Family Medicine; PCP Internal Medicine Adolescent Medicine
DX: N13.2 Hydronephrosis with renal and ureteral calculous obstruction (principal); M54.50 Low back pain, unspecified; R11.2 Nausea with vomiting, unspecified; Z86.16 Personal history of COVID-19; I10 Essential (primary) hypertension; Z88.0 Allergy status to penicillin; Z88.1 Allergy status to other antibiotic agents; Z88.3 Allergy status to other anti-infective agents; Z88.8 Allergy status to other drugs, medicaments and biological substances; Z82.49 Family history of ischemic heart disease and other diseases of the circulatory system; Z80.9 Family history of malignant neoplasm, unspecified
CPT/HCPCS: 74176; 80053; 81001; 85025; 96361; 96374; 96375; 99285; J2405

== ENCOUNTER → 2022-12-04 10:23 | Outpatient (CLI) | payer BC, SELFPAY ==
[2022-12-04 10:52] LABS: Basophils # 0.1 K/mm3 (0-0.2); Basophils % 0.8 % (0.1-2.0); Eosinophils # 0.3 K/mm3 (0.0-0.4); Eosinophils % 3.3 % (0.1-12.0); Hematocrit 37.3 % (37.0-47.0); Lymphocytes # 3.1 K/mm3 (0.7-4.5); Lymphocytes % 29.7 % (10-50); Mean Corpuscular HGB Conc 32.3 g/dL (31.8-35.4); Mean Corpuscular Volume 83.7 fl (81-99); Monocytes # 0.4 K/mm3 (0.1-1.0); Monocytes % 3.6 % (1.7-9.3); Neutrophils # 6.6 K/mm3 (1.8-7.8); Neutrophils % 62.6 % (37.0-80.0); Platelet Count 496 K/mm3 (142-424); Red Blood Count 4.46 M/mm3 (4.20-5.40); Red Cell Distribution Width 14.2 % (11.5-17.5); White Blood Count 10.5 K/mm3 (4.8-10.8)
[2022-12-04 11:26] LABS: Alanine Aminotransferase 42 U/L (12-78); Albumin Level 4.3 g/dl (3.5-5.0); Albumin/Globulin Ratio 1.6 (1.1-1.8); Alkaline Phosphatase 92 U/L (38-126); Aspartate Amino Transferase 45 U/L (14-36); Bilirubin,Total 0.4 mg/dl (0.2-1.3); Blood Urea Nitrogen 10 mg/dl (7-17); Calcium 9.1 mg/dl (8.4-10.2); Carbon Dioxide 25 mmol/L (22.0-30.0); Chloride 107 mmol/L (98-107); Estimated Glomerular Filt Rate 91 ml/min (>60); GFR (African American) 111 ML/MIN (>60); Globulin 2.7 g/dL (1.3-3.2); Glucose 95 mg/dl (74-100); Sodium 139 mmol/L (136-145)
[2022-12-04 11:39] LABS: Hemoglobin A1C 5.8 % (4.0-6.0)
== END ==
PROVIDERS: PCP Internal Medicine Adolescent Medicine; Visit Provider Internal Medicine Adolescent Medicine
DX: R73.9 Hyperglycemia, unspecified (principal); R79.89 Other specified abnormal findings of blood chemistry
CPT/HCPCS: 36415; 80053; 83036; 85025

== ENCOUNTER → 2022-12-08 10:21 | Outpatient (CLI) | payer BC, SELFPAY ==
[2022-12-08 12:48] LABS: Vitamin B12 355 pg/mL (239-931)
[2022-12-08 12:51] LABS: Basophils # 0.1 K/mm3 (0-0.2); Basophils % 1.4 % (0.1-2.0); Eosinophils # 0.3 K/mm3 (0.0-0.4); Eosinophils % 2.7 % (0.1-12.0); Hemoglobin 12.2 g/dL (12.2-16.2); Lymphocytes % 31.5 % (10-50); Mean Corpuscular HGB Conc 29.6 g/dL (31.8-35.4); Mean Corpuscular Volume 87.6 fl (81-99); Mean Platelet Volume 7.5 fl (7.4-10.4); Monocytes # 0.5 K/mm3 (0.1-1.0); Monocytes % 4.8 % (1.7-9.3); Neutrophils # 5.6 K/mm3 (1.8-7.8); Neutrophils % 59.7 % (37.0-80.0); Platelet Count 507 K/mm3 (142-424); Red Blood Count 4.68 M/mm3 (4.20-5.40); Red Cell Distribution Width 14.6 % (11.5-17.5); White Blood Count 9.4 K/mm3 (4.8-10.8)
[2022-12-08 13:16] LABS: Iron 57 ug/dL (37-170)
[2022-12-08 13:25] LABS: Total Iron Binding Capacity 354 ug/dL (265-497)
[2022-12-08 13:52] LABS: Ferritin 12.6 ng/ml (6.24-137)
[2022-12-17 18:05] LABS: Interpretation: Negative (.)
== END ==
PROVIDERS: PCP Internal Medicine Adolescent Medicine; Visit Provider Internal Medicine Medical Oncology
DX: D75.839 Thrombocytosis, unspecified (principal)
CPT/HCPCS: 36415; 81206; 81270; 82607; 82728; 83540; 83550; 85025

== ENCOUNTER → 2023-01-03 15:02 | Outpatient (CLI) | payer BC, SELFPAY ==
--- NOTE | 2023-01-03 15:02 | US_ITS ---
FINAL REPORT CLINICAL HISTORY: following up to Lt. ovarian cyst COMPARISON: 03/21/2022 FINDINGS: Limited sonographic images of the pelvis were obtained. There has been interval hysterectomy. There is a hypoechoic lesion in the left ovary measuring 18 mm, new since prior which may represent a complex cyst or less likely solid mass. The right ovary is normal. There is trace, physiologic free fluid. IMPRESSION: Complex left ovarian lesion. Recommend 2-3 month follow-up. Reviewed, Interpreted and Dictated by Tariq Gary MD Transcribed by Margaret Castillo Authenticated and [facility]
== END ==
PROVIDERS: PCP Internal Medicine Adolescent Medicine; Visit Provider Obstetrics & Gynecology
DX: N83.202 Unspecified ovarian cyst, left side (principal)
CPT/HCPCS: 76830

== ENCOUNTER → 2023-01-22 13:05 | Outpatient (CLI) | payer BC, SELFPAY ==
[2023-01-22 13:35] LABS: Basophils # 0.1 K/mm3 (0-0.2); Basophils % 0.8 % (0.1-2.0); Eosinophils # 0.3 K/mm3 (0.0-0.4); Eosinophils % 3.1 % (0.1-12.0); Hematocrit 38.3 % (37.0-47.0); Hemoglobin 12.4 g/dL (12.2-16.2); Lymphocytes % 28.3 % (10-50); Mean Corpuscular HGB Conc 32.3 g/dL (31.8-35.4); Mean Corpuscular Volume 80.4 fl (81-99); Mean Platelet Volume 7.3 fl (7.4-10.4); Monocytes # 0.6 K/mm3 (0.1-1.0); Monocytes % 5.3 % (1.7-9.3); Neutrophils # 6.7 K/mm3 (1.8-7.8); Neutrophils % 62.5 % (37.0-80.0); Platelet Count 449 K/mm3 (142-424); Red Blood Count 4.76 M/mm3 (4.20-5.40); Red Cell Distribution Width 15.3 % (11.5-17.5); White Blood Count 10.8 K/mm3 (4.8-10.8)
== END ==
PROVIDERS: PCP Internal Medicine Adolescent Medicine; Visit Provider Internal Medicine Medical Oncology
DX: D75.839 Thrombocytosis, unspecified (principal)
CPT/HCPCS: 36415; 85025

== ENCOUNTER → 2023-08-24 09:52 | Outpatient (CLI) | payer BC, SELFPAY | PROVIDERS: PCP Internal Medicine Adolescent Medicine; Visit Provider Nurse Practitioner Family | DX: R19.7 Diarrhea, unspecified (principal) ==

== ENCOUNTER → 2023-08-24 09:54 | Outpatient (CLI) | payer BC, SELFPAY ==
[2023-08-24 09:59] LABS: Adenovirus F 40/41, stool Not Detected (NotDetected); Astrovirus Not Detected (NotDetected); Campylobacter Not Detected (NotDetected); Cryptosporidium Not Detected (NotDetected); Cyclospora Cayetanesis Not Detected (NotDetected); Entamoeba histolytica Not Detected (NotDetected); Enteroaggregative E coli Not Detected (NotDetected); Enteropathogenic E coli Not Detected (NotDetected); Enterotoxigenic E coli Not Detected (NotDetected); Giardia lamblia Not Detected (NotDetected); Norovirus Not Detected (NotDetected); Plesimonas Shigalloides, PCR Not Detected (NotDetected); Rotavirus A Not Detected (NotDetected); Salmonella, PCR Not Detected (NotDetected); Sapovirus Not Detected (NotDetected); Shiga-like toxin E coli Not Detected (NotDetected); Shigella Enterovasive E coli Not Detected (NotDetected); Vibrio Cholerae Not Detected (NotDetected); Vibrio, PCR Not Detected (NotDetected); Yersinia Entercolitica, PCR Not Detected (NotDetected)
[2023-08-24 16:08] LABS: Clostridium Difficile A/B, PCR Detected (NotDetected)
== END ==
PROVIDERS: PCP Internal Medicine Adolescent Medicine; Visit Provider Nurse Practitioner Family
DX: R19.7 Diarrhea, unspecified (principal); A04.72 Enterocolitis due to Clostridium difficile, not specified as recurrent
CPT/HCPCS: 87507

== ENCOUNTER → 2023-10-16 09:51 | Outpatient (CLI) | payer BC, SELFPAY ==
--- NOTE | 2023-10-16 10:17 | MM_ITS ---
PROCEDURE INFORMATION: Exam: MG Bilateral Screening 3D Mammography Exam date and time: 10/16/2023 10:04 AM Age: 43 years old Clinical indication: Screening examination TECHNIQUE: Imaging protocol: Bilateral Screening tomosynthesis and 2D mammography including computer-aided detection (CAD) when performed. COMPARISON: 1. MG MM DIG SCREENING MAMM BI W/CAD 08/16/2022 10:40 AM 2. MG MM DIG SCREENING MAMM BI W/CAD 08/08/2021 3:32 PM FINDINGS: MAMMOGRAPHY: Breast composition: There are scattered areas of fibroglandular density. Mass: Questionable 0.6 cm mass in the middle third of the left upper breast best seen in the MLO projection Architectural distortion: None. Calcifications: No suspicious calcifications. Asymmetric density: None. Skin thickening: None. Axillary adenopathy: None. IMPRESSION: Patient to be recalled for spot compression views of the left breast in the CC and MLO projections, a full 90 degree lateral view, and left breast ultrasound for further evaluation of a left breast mass. ASSESSMENT: BI-RADS Category 0: Incomplete- Need Additional Imaging Evaluation and/or Prior Mammograms for Comparison
== END ==
LOC: RAD 09:52 → OR 10:51
PROVIDERS: PCP Internal Medicine Adolescent Medicine; Visit Provider Nurse Practitioner Family
DX: Z12.31 Encounter for screening mammogram for malignant neoplasm of breast (principal)
CPT/HCPCS: 77063; 77067

== ENCOUNTER 2023-10-16 10:30 | Day surgery (SDC) | payer BC, SELFPAY ==
[2023-10-16] VITALS (13 sets, daily range): BP systolic 109–162; BP diastolic 61–99; PULSE 79–110; RESP 16–18; TEMP 36.3–36.6; O2SAT 93–100; BMI 38.7
--- NOTE | 2023-10-16 11:04 | HMH.SCOPE ---
Procedure: Date: 10/16/23 Patient Date of :: 1980 Procedure Performed:: Colonoscopy (aborted) Indications:: Anemia Thrombocytosis Episode of bright red blood per rectum Performing Provider:: John Hopper MD Referring Provider:: . Sedation:: Monitored anesthesia care Procedure:: After informed consent was obtained the patient was taken to the endoscopy suite. Sedation ensued after the patient was transferred to the left lateral decubitus position. Pulse, blood pressure, and oxygen saturation were monitored throughout the procedure. Digital rectal exam revealed no significant abnormality. The colonoscope was placed in position. The entire colon was evaluated. The colonoscope was carefully removed and the patient was transferred to recovery in stable condition. Please see findings and specimens below for detail. Findings:: Bowel preparation moderate Profound angulation in sigmoid colon creating stricture-like effect Colonoscope not advanced beyond sigmoid colon secondary to above findings Specimens:: None Recommendations:: Barium enema unavailable today; therefore, CT scan of abdomen/pelvis with rectal contrast ordered Complications:: Colonoscopy not completed Estimated blood obtained (mL): 0 Colonoscopy Component Colonoscopy Component Was a colonoscopy performed during today's procedure?: Yes Recommended follow up colonoscopy of at least 10 years?: No If no, follow up colonoscopy recommended in ___ years?: (See above) Reason for not recommending >/= 10 yr follow-up interval?: (See above)
--- NOTE | 2023-10-16 11:08 | P.PNANES_ITS ---
[facility] Disclaimer: The information contained in this section may have been updated after the patient was seen, as this information can be updated by other users. Medical History (Reviewed 12/08/22 @ 09:37 by Kimberly Samuels [facility]) Abdominal pain History of COVID-19 History of hypertension Kidney stone Nephrolithiasis Ovarian cyst Surgical History H/O total hysterectomy History of delivery History of salpingectomy History of tonsillectomy S/P abdominal hysterectomy Status post bilateral salpingectomy Family History Other Family history of cancer Family history of hyperlipidemia Family history of hypertension Family history of myocardial infarction Social History (Updated 10/16/23 @ 10:50 by Rob Dietrich RN) Smoking Status: Never smoker alcohol intake: never substance use type: denies use current occupational status: employed Travel in the last 8 weeks: None caffeine: Yes [facility] Anesthesia Checklist Patient Identification Patient Identification: Arm Band Structural Data Admitted From: Home Planned Operative Procedure/s: colonoscopy Consent for Planned Operative Procedure(s) Verified: Yes Verified Documents: Surgical Consent and History and Physical NPO Status Verified Time NPO: 00:00 Additional verifications Anesthesia Reactions: No Hx Blood Transfusions: No Blood Transfusion Reaction: No Airway Assessment Mallampati Score:: Class II C-Spine Mobility Assessed: Yes TMJ Mobility Assessed: Yes Dentition: Good Dentition Neurological Assessment Level of Consciousness: Awake and Alert Anesthesia Plan Anesthesia Risk discussed: Yes Anesthesia Plan: Verified ASA Class: II Anesthesia Type: MAC
--- NOTE | 2023-10-16 11:49 | CT_ITS ---
FINAL REPORT CLINICAL HISTORY: unable to complete colonoscopy FINDINGS: CT OF THE ABDOMEN AND PELVIS WITH CONTRAST Axial CT images of the abdomen and pelvis were obtained after the administration of rectal and iv contrast. Coronal reformatted images were also obtained and reviewed. This study was performed with techniques to keep radiation doses as low as reasonably achievable (ALARA). Individualized dose reduction techniques using automated exposure control or adjustment of mA and/or kV according to the patient's size were employed. Abdomen: There is a 4 mm nodule in the left lung base.. The heart is normal in size. There is mild fatty infiltration of the liver. The spleen is unremarkable. No adrenal mass is present. The pancreas has an unremarkable appearance. The kidneys are normal, without evidence of mass or hydronephrosis. The aorta is normal in caliber. There is no free fluid or adenopathy. No mass or abnormal fluid collection is seen. Pelvis: The appendix is normal. There is a 30 mm area of localized wall thickening of the mid sigmoid colon. This could be neoplastic or inflammatory. There is a probable 22 mm cyst in the right ovary. The left ovary is somewhat enlarged up to 38 mm. There is a band of soft tissue extending from the left ovary to the soft tissue thickening in the mid sigmoid colon mass seen on axial image 91 that could also be inflammatory or neoplastic. There has been a prior hysterectomy. IMPRESSION: Localized wall thickening of the mid sigmoid colon with a band of soft tissue extending from the left ovary to the soft tissue thickening. Findings could be inflammatory or neoplastic. Reviewed, Interpreted and Dictated by Prakash Hernández III, MD Transcribed by Quoc Trerazas Authenticated and [facility]
--- NOTE | 2023-10-16 12:05 | SUR.PHASEII ---
Pt to rad at this time by stretcher.
--- NOTE | 2023-10-16 12:43 | SUR.PHASEII ---
[id number] - Back to post at this time
--- NOTE | 2023-10-16 13:55 | SUR.PHASEI ---
1330 - called rad to see if ct prelim was available. per jasmin, the scan is currently locked and should be in the process of being read. 1355 - called rad again at this time. still unable to see prelim on ct scan for pt. per jasmin she will ask one of the rad techs if they are able to get an update on how much longer on read.
--- NOTE | 2023-10-16 14:34 | SUR.PHASEII ---
1434 - spoke to lila in radiology, states that the CT is still locked and they are unable to see anything at this time. replied that this has been locked for atleast an hour and pt continues to wait for results before she can go home. Lila states she will contact someone to see if they have an estimate of when it will be done.
== END 2023-10-16 15:05 | disposition home or self-care (01) ==
LOC: OUTP 15:35
PROVIDERS: PCP Internal Medicine Adolescent Medicine; Visit Provider Surgery
PROC: 0DJD8ZZ Inspection of Lower Intestinal Tract, Via Natural or Artificial Opening Endoscopic (ICD-10-PCS; CPT 45378; principal; 2023-10-16 11:30)
DX: D64.9 Anemia, unspecified (principal); D75.839 Thrombocytosis, unspecified; K56.699 Other intestinal obstruction unspecified as to partial versus complete obstruction
CPT/HCPCS: 45378; 74177; Q9967

== ENCOUNTER → 2023-10-31 14:17 | Outpatient (CLI) | payer BC, SELFPAY ==
--- NOTE | 2023-10-31 14:27 | MM_ITS ---
PROCEDURE INFORMATION: Exam: MG Left Diagnostic Breast Tomosynthesis Exam date and time: 10/31/2023 2:28 PM Age: 43 years old Clinical indication: Patient recalled on the basis of a screening mammogram for further evaluation; Left breast; mass TECHNIQUE: Imaging protocol: Left Diagnostic tomosynthesis and 2D mammography including computer-aided detection (CAD) when performed. Unilateral or bilateral exam. COMPARISON: 1. MG MM DIG SCREENING MAMM BI W/CAD 10/16/2023 10:04 AM 2. MG MM DIG SCREENING MAMM BI W/CAD 08/16/2022 10:40 AM FINDINGS: MAMMOGRAPHY: Digital diagnostic spot compression views of the left breast and 90 degree lateral view of the left breast demonstrate normal overlapping fibroglandular structures without persistent mass or asymmetry identified. IMPRESSION: No mammographic evidence of malignancy. Annual bilateral mammographic screening is recommended unless otherwise clinically indicated. ASSESSMENT: BI-RADS Category 1: Negative
--- NOTE | 2023-10-31 14:28 | US_ITS ---
PROCEDURE INFORMATION: Exam: US Left Breast, Complete Exam date and time: 10/31/2023 2:56 PM Age: 43 years old Clinical indication: Questionable left breast mass on screening mammogram dated 10/16/2023. Additional imaging however demonstrated normal overlapping fibroglandular structures. For complete evaluation with ultrasound. TECHNIQUE: Imaging protocol: Complete ultrasound of all four quadrants of the left breast and the retroareolar regions, including ultrasound of the axilla when performed. COMPARISON: BL US BREAST-LT COMPLETE W/AXILLA 07/26/2017 3:19 PM FINDINGS: Breast: Sonographic images of the left breast including the retroareolar region, all 4 quadrants and the axilla do not demonstrate any solid masses. Minimal subcentimeter cystic change is noted in the left 9 and 4 o'clock axes. No architectural distortion or acoustical shadowing. No skin thickening or axillary adenopathy. IMPRESSION: No sonographic evidence of malignancy. Annual mammographic screening is recommended unless otherwise clinically indicated. ASSESSMENT: BI-RADS Category 2: Benign
== END ==
PROVIDERS: PCP Internal Medicine Adolescent Medicine; Visit Provider Internal Medicine Adolescent Medicine
DX: R92.8 Other abnormal and inconclusive findings on diagnostic imaging of breast (principal)
CPT/HCPCS: 76641; 77061; 77065; G0279

== ENCOUNTER 2024-10-31 15:45 | Outpatient (CLI) | payer BC, SELFPAY ==
--- OUTSIDE RECORDS SUMMARY | 2024-10-31 15:47 | XMS_ITS | Clinical Summary ---
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 10/22/2023 Active metoprolol succinate (TOPROL-XL) 25 MG 24 hr tablet Take 1 tablet (25 mg total) by mouth nightly. 10/22/2023 Active spironolactone (ALDACTONE) 50 MG tablet Take 1 tablet (50 mg total) by mouth daily. 10/22/2023 Active cyclobenzaprine (FLEXERIL) 10 MG tablet Take 1 tablet (10 mg total) by mouth as needed. 08/06/2023 Active cetirizine (ZyrTEC) 10 MG tablet Take 1 tablet (10 mg total) by mouth daily. Active lactobacillus rhamnosus, GG, (CULTURELLE) 10 billion cell capsule Take 1 capsule by mouth daily. Active Active Problems Problem Noted Date Diagnosed Date Colon stricture 11/16/2023 PONV (postoperative nausea and vomiting) 023 Social History Tobacco Use Types Packs/Day Years Used Date Smoking Tobacco: Never Smokeless Tobacco: Never Tobacco Cessation:Counseling Given: Not Answered Alcohol Use Standard Drinks/Week Comments Not Asked 0 (1 standard drink = 0.6 oz pur e alcohol) MAYBE 3-4 TIMES PER YEAR Humiliation, Afraid, Rape, and Kick questionnair e Answer Date Recorded Within the last year, have y ou been afraid of your partner or ex-partner? No 11/09/2023 Within the last year, have y ou been humiliated or emotionally abused in other ways by your partner or ex-partner? No Within the last year, have y ou been kicked, hit, slapped, or otherwise physically hurt by your partner or ex-partner? No 11/09/2023 Within the last year, have y ou been raped or forced to have any kind of sexual activity by your partner or ex-partner? No 11/09/2023 PHQ-2 Answer Date Recorded Patient Health Questionnaire-2 Score 0 11/09/2023 PRAPARE - Transportation Answer Date Re corded In the past 12 months, has l ack of transportation kept you from medical appointments or from getting medications? No 11/16/2023 Lack of Transportation (Non-Medical) Not on file 11/16/2023 Housing Stability Vital Sign Answer Yogesh e Recorded In the last 12 months, was t here a time when you were not able to pay the mortgage or rent on time? No 11/17/2023 In the last 12 months, how many places have you lived? 1 11/17/2023 In the last 12 months, was t here a time when you did not have a steady place to sleep or slept in a [place] (including now)? No 11/17/2023 [facility] Intimate Partner Violence Answer Da te Recorded Within the last year, have y ou been afraid of your partner or ex-partner? No 11/09/2023 Within the last year, have y ou been humiliated or emotionally abused in other ways by your partner or ex-partner? No Within the last year, have y ou been kicked, hit, slapped, or otherwise physically hurt by your partner or ex-partner? No 11/09/2023 Within the last year, have y ou been raped or forced to have any kind of sexual activity by your partner or ex-partner? No 11/09/2023 Interpersonal Safety Answer Date Record ed Family or friends hurt you Not on file 12/05 Family or friends insult you Not on file 08/2024 Family or friends threaten you Not on file 0 12/05/2023 Family or friends scream or curse at you Not on file 12/05/2023 Housing Stability Answer Date Recorded Living situation today Not on file Living situation problems Not on file 2023 Food Insecurity Answer Date Recorded Food run out past 12 months Not on file 11/26 Food did not last past 12 months Not on file 12/05/2023 Employment Answer Date Recorded Help finding and keeping a job Not on file 0 12/05/2023 Family and Community Support Answer Yogseh e Recorded Help with Day to Day Activities Not on file 12/05/2023 Feeling Lonely or Isolated Not on file 12/05 Educational Attainment Answer Date Natalio rded Speak language other than Slovak at home Not on file 12/05/2023 Want help with school or training Not on file 12/05/2023 Depression Answer Date Recorded PHQ-2 Risk Not on file 12/05/2023 Disabilities Answer Date Recorded Difficulty concentrating Not on file 024 Difficulty doing errands alone Not on file 0 12/05/2023 Substance Use Answer Date Recorded Used prescription meds for non-medical reasons N ot on file 12/05/2023 Used illegal drugs past 12 months Not on file 12/05/2023 Comments Unknown Sex and Gender Information Value Date Recorded Sex Assigned at Not on file 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 Gender Identity Not on file Sexual Orientation Not on file Last Filed Vital Signs Vital Sign Reading Time Taken Comments Blood Pressure 116/64 11/18/2023 8:45 AM EST Pulse 92 11/18/2023 8:45 AM EST Temperature 37 ??C (98.6 ??F) 11/18/2023 8:45 AM EST Respiratory Rate 16 11/18/2023 8:45 AM EST Oxygen Saturation 98% 11/18/2023 8:45 AM EST Inhaled Oxygen Concentration - - Weight 100.2 kg (221 lb) 11/16/2023 6:03 PM EST Height 158.8 cm (5' 2.52 ) 11/16/2023 6:03 PM ES T Body Mass Index 39.75 11/16/2023 6:03 PM EST Plan of Treatment Health Maintenance Due Date Last Done Comments CT Colonography 1980 Colonoscopy 1979 Colorectal Cancer Screening 1979 FOBT/FIT 1979 Fit-DNA (Cologuard) 1980 Sigmoidoscopy 1979 HIV Screening 1994 Hepatitis C Screening 1997 Pap Smear 2000 Breast Cancer Screening 2019 COVID-19 VACCINE ( season) 2024, 12/18/2020 Influenza Vaccine (#1) 2024 Lipid Panel 2024 Depression Screening (12+) 11/09/2024 11/09/2023 Tobacco Cessation Counseling and Screening (12+) 11/09/2024 11/09/2023 DTAP/TDAP/TD VACCINES (2 - Td or Tdap) 05/02/2026 Insurance BLUE CROSS/BLUE SHIELD Advance Directives For more information, please contact: [phone] * Full Code (Latest Code Status on File) Date Activated Date Inactivated Comments 11/16/2023 5:12 PM 11/18/2023 1:31 PM Care Teams Salvage Cutter Relationship Specialty Start Date End Date Ata Lyons MD [address] [place] [id number] PCP - General Adolescent Medicine 11/09/23
--- OUTSIDE RECORDS SUMMARY | 2024-10-31 15:47 | XMS_ITS | Encounter Summary ---
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 Aircraft Structural Repairer Name Role Phone Ata Lyons MD Primary Care Provider [phone] Reason for Visit * Auth/Cert (Routine) Specialty Diagnoses / Procedures Referred By Roberto t Referred To Contact Diagnoses Colonic stricture (HCC) COLON STRICTURE Procedures DE LAP,SURG,COLECTOMY,W/ANAST ROBOTIC LAPAROSCOPY,LOW ANTERIOR RESECTION [facility] [address] [place] [address] Phone: tel: fax: [facility] [address] [place] [address] Phone: tel: fax: Referral ID Status Reason Start Date Expiration Date Visits Re quested Visits Authorized [id number] 1 1 Encounter Details Date Type Department Care Team (Late st Contact Info) Description 11/16/2023 8:33 AM EST - 11/18/2023 12:31 PM EST Hospital Encounter [facility] [address] [place] [address] Monty Marsh MD [address] [facility] [address] [place], [place] [id number] German Proctor MD [address] [facility] [address] [place], [place] [id number] Colonic stricture (HCC) Discharge Disposition: Home or Self Care Social History Tobacco Use Types Packs/Day Years Used Date Smoking Tobacco: Never Smokeless Tobacco: Never Alcohol Use Standard Drinks/Week Comments Not Asked [...] place to sleep or slept in a long-term (including now)? No 11/17/2023 [facility] Intimate Partner [...] by your partner or ex-partner? 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 Marsh Discharge Diagnoses: Colonic stricture S/p low anterior resection done by Dr. Marsh ?? Leukocytosis. ?? Hypertension. Reason for Admission: Very pleasant 43-year-old white female who was recently diagnosed with colonic stricture. Patient underwent colonoscopy as outpatient. Reported unable to pass the scope beyond the sigmoid colon due to tight angulation. Likely due to stricture. Underwent CT scan abdomen and pelvis. This most likely adhesions to bowel kinking and twisting colon. Patient was seen and evaluated by Dr. Marsh. Subsequently underwent low anterior resection performed 11/16/2023 patient tolerated procedure very well. She does not have bowel movement yet not passing gas yet. Just feels weak tired and lethargic. Complaining of mild headache. Hospital Course: Physical evaluate the patient. Patient ambulates. Started on clear liquid diet advance as tolerated. Jean catheter discontinued. Discussed with Dr. Marsh. Recommend okay to discharge home and closefollow-up with him after 1 to 2 weeks. Studies Performed: Procedures Performed: Laparoscopic low anterior resection Discharge Medications: Your medication list START taking these medications Instructions Comments Quantity Refills famotidine 20 MG tablet Commonly known as: PEPCID Take 1 tablet (20 mg total) by mouth 2 (two) times daily for 30 days. 60 tablet 0 oxyCODONE-acetaminophen 5-325 mg per tablet Commonly known as: PERCOCET Take 1 tablet by mouth every 6 (six) hours as needed for Pain for up to 3 days. Max Daily Amount: 4tablets 10 tablet 0 CONTINUE taking these medications Instructions Comments Quantity Refills cetirizine 10 MG tablet Commonly known as: ZyrTEC Take 1 tablet (10 mg total) by mouth daily. 0 cyclobenzaprine 10 MG tablet Commonly known as: FLEXERIL Take 1 tablet (10 mg total) by mouth as needed. 0 lactobacillus rhamnosus (GG) 10 billion cell capsule Commonly known as: CULTURELLE Take 1 capsule by mouth daily. 0 metoprolol succinate 25 MG 24 hr tablet Commonly known as: TOPROL-XL Take 1 tablet (25 mg total) by mouth nightly. 0 montelukast 10 mg tablet Commonly known as: SINGULAIR Take 1 tablet (10 mg total) by mouth nightly. 0 spironolactone 50 MG tablet Commonly known as: ALDACTONE Take 1 tablet (50 mg total) by mouth daily. 0 STOP taking these medications diclofenac 75 MG EC tablet Commonly known as: VOLTAREN Where to Get Your Medications These medications were sent to [facility] [address] [place] [id number] ?? famotidine 20 MG tablet ?? oxyCODONE-acetaminophen 5-325 mg per tablet Physical Exam Constitutional: Appearance: Normal appearance. Cardiovascular: Rate and Rhythm: Regular rhythm. Musculoskeletal: Cervical back: Normal range of motion and neck supple. Neurological: Mental Status: She is alert. Discharge Instructions Discharge Diet: Cardiac diet Discharge Activity: As tolerated Discharge Follow UP: Contact information for follow-up Ata Lyons MD Specialty: Adolescent Medicine Relationship: PCP - General [address] [place] [address] [place] [address] Next Steps: Follow up in 2 week(s) Monty Marsh MD Specialty: Colon and Rectal Surgery [address] [facility] [address] Next Steps: Follow up on 11/22/2023 Instructions: Please call to schedule a follow up on 11/22 Time Spent: 45 minutes Electronically signed by GERMAN PROCTOR MD, 11/19/23, 11:52 AM EST RTMENT OPERATIONS MANAGER documented in this encounter Discharge Instructions * Attachments The following attachments cannot be sent through Care Everywhere. * Famotidine Tablets (Cypriot) * Oxycodone Capsules or Tablets (Cypriot) * Minimally Invasive Small Bowel Resection Care After (Cypriot) documented in this encounter Medications at Time of Discharge cetirizine (ZyrTEC) 10 MG tablet Take 1 tablet (10 mg total) by mouth daily. cyclobenzaprine (FLEXERIL) 10 MG tablet Take 1 tablet (10 mg total) by mouth as needed. 08/06/2023 lactobacillus rhamnosus, GG, (CULTURELLE) 10 billion cell capsule Take 1 capsule by mouth daily. metoprolol succinate (TOPROL-XL) 25 MG 24 hr tablet Take 1 tablet (25 mg total) by mouth nightly. 10/22/2023 montelukast (SINGULAIR) 10 mg tablet Take 1 tablet (10 mg total) by mouth nightly. 10/22/2023 spironolactone (ALDACTONE) 50 MG tablet Take 1 tablet (50 mg total) by mouth daily. 10/22/2023 famotidine (PEPCID) 20 MG tablet Take 1 tablet (20 mg total) by mouth 2 (two) times daily for 30 days. 60 tablet 11/18/2023 12/18/2023 oxyCODONE-acetami nophen (PERCOCET) 5-325 mg per tablet Take 1 tablet by mouth every 6 (six) hours as needed for Pain for up to 3 days. Max Daily Amount: 4 tablets 10 tablet 11/18/2023 11/21/2023 documented as of this encounter Progress Notes * Monty Marsh MD - 11/18/2023 7:42 AM EST Subjective Review of Systems Objective Last Recorded Vitals Blood pressure 114/66, pulse 66, temperature 98.6 ??F (37 ??C), resp. rate 15, height 1.588 m (5' 2.52 ), weight 100.2 kg (221 lb), SpO2 98 %. Physical Exam Labs: Results for orders placed or performed during the hospital encounter of 11/16/23 (from the past 24 hour(s)) Basic Metabolic Panel Status: Abnormal Collection Time: 11/18/23 5:59 AM Result Value Ref Range Sodium 139 136 - 146 meq/L Potassium 3.7 3.5 - 5.1 meq/L Chloride 111 102 - 112 meq/L CO2 24 21 - 32 meq/L Anion Gap 8 (L) 9 - 20 BUN 8 7 - 22 mg/dL Creatinine 0.69 0.55 - 1.02 mg/dL BUN/Creatinine 12 8 - 20 Glucose 98 74 - 106 mg/dL Calcium 8.5 8.4 - 10.1 mg/dL Osmolality Calc 275.8 eGFR (mL/min/1.73m2) >60 >=60 mL/min/1.73m2 CBC with automated diff Status: Abnormal Collection Time: 11/18/23 5:59 AM Result Value Ref Range WBC 16.4 (H) 4.5 - 10.5 K/??L RBC 4.46 3.93 - 5.22 M/??L Hemoglobin 12.9 11.2 - 15.7 GM/DL Hematocrit 39.0 34.1 - 44.9 % MCV 87 79 - 95 fL MCH 28.9 25.6 - 32.2 pg MCHC 33.1 32.2 - 36.5 GM/DL RDW 13.1 11.7 - 14.9 % Platelets 358 163 - 369 K/CU MM MPV 9.4 9.4 - 12.4 fL % Neutros 67 34 - 71 % % Lymphs 23 19 - 53 % % Monos 9 3 - 9 % % Eos 1 0 - 1 % % Baso 0 0 - 2 % NRBC Absolute 0.00 0 - 0.12 K/ul # Neutros 11.00 (H) 1.56 - 6.13 K/??L # Lymphs 3.70 (H) 1.00 - 3.50 K/??L # Monos 1.46 (H) 0.16 - 1.00 K/??L # Eos 0.10 0.00 - 0.80 K/??L # Baso 0.07 0.00 - 0.20 K/??L Immature Granulocytes-Relative 0.40 0.00 - 0.60 % # IG 0.07 (H) 0.00 - 0.05 K/uL Magnesium Status: Abnormal Collection Time: 11/18/23 5:59 AM Result Value Ref Range Magnesium 2.5 (H) 1.5 - 2.4 mg/dL X-ray chest PA and lateral Narrative: TWO VIEW CHEST HISTORY: Preoperative cardiopulmonary evaluation, obesity. COMPARISON: None. FINDINGS: The heart is normal in size. The mediastinum is unremarkable. The lungs are clear. There is no pneumothorax. Impression: No acute cardiopulmonary process. Images reviewed, interpreted, and dictated by Dr. Carlos Richardson. Transcribed by Lupe Martinez PA-C. November 18, 2023. Patient doing much better today. Jean out and has passed her urine. Has had several bowel movements. Vital signs are stable. Has been up and walking. White count down to 16 K. Examination: Abdomen soft with mild distention and incisional tenderness. Impression: Status post robotic low anterior resection. Plan: 1. Okay for discharge home today. 2. Have reviewed signs and symptoms for which she should give me a shower. 3. Have sent a prescription of Percocet to patient's pharmacy, [facility]. 4. Patient to follow-up with me this coming in the office. RTMENT OPERATIONS MANAGER * Monty Marsh MD - 11/17/2023 9:17 AM EST Subjective Review of Systems Objective Last Recorded Vitals Blood pressure 114/64, pulse 95, temperature 98.4 ??F (36.9 ??C), temperature source Oral, resp. rate 16, height 1.588 m (5' 2.52 ), weight 100.2 kg (221 lb), SpO2 95 %. Physical Exam Labs: Results for orders placed or performed during the hospital encounter of 11/16/23 (from the past 24 hour(s)) Type and Screen Status: None Collection Time: 11/16/23 11:42 AM Result Value Ref Range ABO/Rh O Positive Antibody Screen Negative HISTCHK HIST CHECK PERFORMED Glucose, iSTAT Meter Status: Normal Collection Time: 11/16/23 11:43 AM Result Value Ref Range POC-GLUCOSE 103 70 - 105 mg/dL POC-Potassium Status: Normal Collection Time: 11/16/23 11:43 AM Result Value Ref Range POC Potassium 3.7 3.5 - 4.9 mmol/L CBC (Hemogram only) Status: Abnormal Collection Time: 11/17/23 4:56 AM Result Value Ref Range WBC 26.0 (H) 4.5 - 10.5 K/??L RBC 5.09 3.93 - 5.22 M/??L Hemoglobin 14.9 11.2 - 15.7 GM/DL Hematocrit 44.5 34.1 - 44.9 % MCV 87 79 - 95 fL MCH 29.3 25.6 - 32.2 pg MCHC 33.5 32.2 - 36.5 GM/DL RDW 12.6 11.7 - 14.9 % Platelets 397 (H) 163 - 369 K/CU MM MPV 9.7 9.4 - 12.4 fL Basic Metabolic Panel Status: Abnormal Collection Time: 11/17/23 4:56 AM Result Value Ref Range Sodium 133 (L) 136 - 146 meq/L Potassium 4.2 3.5 - 5.1 meq/L Chloride 106 102 - 112 meq/L CO2 24 21 - 32 meq/L Anion Gap 7 (L) 9 - 20 BUN 7 7 - 22 mg/dL Creatinine 0.67 0.55 - 1.02 mg/dL BUN/Creatinine 10 8 - 20 Glucose 116 (H) 74 - 106 mg/dL Calcium 9.0 8.4 - 10.1 mg/dL Osmolality Calc 265.3 eGFR (mL/min/1.73m2) >60 >=60 mL/min/1.73m2 X-ray chest PA and lateral Narrative: TWO VIEW CHEST HISTORY: Preoperative cardiopulmonary evaluation, obesity. COMPARISON: None. FINDINGS: The heart is normal in size. The mediastinum is unremarkable. The lungs are clear. There is no pneumothorax. Impression: No acute cardiopulmonary process. Images reviewed, interpreted, and dictated by Dr. Carlos Richardson. Transcribed by Lupe Martinez PA-C. November 17, 2023. Patient has not been up and walking, has not had anything to eat, and has not passed gas. Patient had a long and difficult surgery yesterday for intense pelvic adhesions and low anterior resection. Jean just removed and not yet urinated. A.m. white count 26. H/H and electrolytes unremarkable. Pain in good control. Examination: Abdomen soft. Incisional tenderness. Mild distention. Impression: Status post low anterior resection for colonic stricture. Suspect because of colonic stricture to be adhesions from previous surgery. Plan: 1. I would like to keep her 1 additional day as patient was not walking last night, has not had anything to eat, just had her catheter removed, and white count quite elevated at 26. 2. Check labs in AM. Encourage ambulation and diet today. 3. Anticipate home tomorrow. 4. Have sent a prescription of Percocet to the patient's pharmacy. RTMENT OPERATIONS MANAGER documented in this encounter H&P Notes * Fabiana Ashley Poper, COOK CANDY - 11/16/2023 10:05 AM EST HPI History Of Present Illness Aditya Blakely is a 43 y.o. female presenting with colon stricture found on colonoscopy after having blood in stool for 4 months. Pt is having Robotic low anterior resection with Dr. Marsh. Past Medical History She has a past medical history of C. difficile colitis, Hypertension, Kidney stone, PONV (postoperative nausea and vomiting), and Seasonal allergies. Surgical History She has a past surgical history that includes Hysterectomy; Tonsillectomy; and section. Social History She reports that she has never smoked. She has never used smokeless tobacco. She reports that she does not use drugs. No history on file for alcohol use. Family History Her family history is not on file. Allergies Chlorpheniramine, Phenylephrine, Pseudoephedrine, Pyrilamine, and Erythromycin Base Medications Current Outpatient Medications Medication Instructions ??? cetirizine (ZYRTEC) 10 mg, Oral, Daily ??? cyclobenzaprine (FLEXERIL) 10 mg, Oral, As needed ??? diclofenac (VOLTAREN) 75 mg, Oral, As needed ??? lactobacillus rhamnosus, GG, (CULTURELLE) 10 billion cell capsule 1 capsule, Oral, Daily ??? metoprolol succinate (TOPROL-XL) 25 mg, Oral, Every Night ??? montelukast (SINGULAIR) 10 mg, Oral, Every Night ??? psyllium 0.52 g, Oral, Daily ??? spironolactone (ALDACTONE) 50 mg, Oral, Daily Review of Systems Review of Systems Constitutional: Negative. HENT: Negative. Eyes: Negative. Respiratory: Negative. Cardiovascular: Negative. Gastrointestinal: Positive for blood in stool. Endocrine: Negative. Genitourinary: Negative. Musculoskeletal: Negative. Skin: Positive for wound (burn on R forearm). Allergic/Immunologic: Negative. Neurological: Negative. Hematological: Negative. Psychiatric/Behavioral: Negative. Last Recorded Vitals Blood pressure 119/72, pulse 73, resp. rate 18. Physical Exam Constitutional: Appearance: Normal appearance. She is obese. HENT: Head: Normocephalic. Cardiovascular: Rate and Rhythm: Normal rate and regular rhythm. Pulses: Normal pulses. Heart sounds: Normal heart sounds. No murmur heard. No friction rub. No gallop. Pulmonary: Effort: Pulmonary effort is normal. Breath sounds: Normal breath sounds. Abdominal: Palpations: Abdomen is soft. Tenderness: There is no abdominal tenderness. Musculoskeletal: General: Normal range of motion. Cervical back: Normal range of motion and neck supple. Skin: General: Skin is warm and dry. Comments: Burn R forearm Neurological: General: No focal deficit present. Mental Status: She is alert and oriented to person, place, and time. Psychiatric: Mood and Affect: Mood normal. Behavior: Behavior normal. Diagnostic Results No visits with results within 1 Day(s) from this visit. Latest known visit with results is: Hospital Outpatient Visit on 11/09/2023 Component Date Value Ref Range Status ??? WBC 11/09/2023 10.6 (H) 4.5 - 10.5 K/??L Final ??? RBC 11/09/2023 4.79 3.93 - 5.22 M/??L Final ??? Hemoglobin 11/09/2023 13.7 11.2 - 15.7 GM/DL Final ??? Hematocrit 11/09/2023 41.5 34.1 - 44.9 % Final ??? MCV 11/09/2023 87 79 - 95 fL Final ??? MCH 11/09/2023 28.6 25.6 - 32.2 pg Final ??? MCHC 11/09/2023 33.0 32.2 - 36.5 GM/DL Final ??? RDW 11/09/2023 12.7 11.7 - 14.9 % Final ??? Platelets 11/09/2023 428 (H) 163 - 369 K/CU MM Final ??? MPV 11/09/2023 9.8 9.4 - 12.4 fL Final ??? VENTRICULAR RATE EKG/MIN 11/09/2023 74 BPM Final ??? ATRIAL RATE (MCT) 11/09/2023 74 BPM Final ??? DE Interval 11/09/2023 146 ms Final ??? QRS-INTERVAL (MSEC) 11/09/2023 72 ms Final ??? QT Interval 11/09/2023 392 ms Final ??? QTC Interval 11/09/2023 435 ms Final ??? P [place] 11/09/2023 32 degrees Final ??? R AXIS (MCT) 11/09/2023 5 degrees Final ??? T Wave [place] 11/09/2023 26 degrees Final ??? [place] Diagnosis 11/09/2023 Final Value:Normal sinus rhythm with sinus arrhythmia Normal ECG No previous ECGs available Confirmed by Tyrone ANDRADE, LORETTA ([id number]), slot editor TONNY MARIE ([id number]) on 11/09/2023 2:49:22 PM ??? Sodium 11/09/2023 140 136 - 146 meq/L Final ??? Potassium 11/09/2023 3.9 3.5 - 5.1 meq/L Final ??? Chloride 11/09/2023 107 102 - 112 meq/L Final ??? CO2 11/09/2023 29 21 - 32 meq/L Final ??? Calcium 11/09/2023 9.0 8.4 - 10.1 mg/dL Final ??? Glucose 11/09/2023 86 74 - 106 mg/dL Final ??? BUN 11/09/2023 10 7 - 22 mg/dL Final ??? Creatinine 11/09/2023 0.76 0.55 - 1.02 mg/dL Final ??? BUN/Creatinine 11/09/2023 13 8 - 20 Final ??? Albumin 11/09/2023 3.7 3.4 - 5.0 g/dL Final ??? Alkaline Phosphatase 11/09/2023 93 27 - 136 U/L Final ??? ALT 11/09/2023 36 13 - 56 U/L Final ??? AST 11/09/2023 27 5 - 37 U/L Final ??? Total Bilirubin 11/09/2023 0.5 0.2 - 1.2 mg/dL Final ??? Protein, Total 11/09/2023 7.2 6.4 - 8.2 gm/dL Final ??? Anion Gap 11/09/2023 8 (L) 9 - 20 Final ??? A/G Ratio 11/09/2023 1.1 1.1 - 2.5 Final ??? Globulin 11/09/2023 3.5 1.5 - 4.5 g/dL Final ??? Osmolality Calc 11/09/2023 277.7 Final ? ? eGFR (mL/min/1.73m2) 11/09/2023 >60 >=60 mL/min/1.73m2 Final ??? RETYPE 11/09/2023 O POSITIVE Final ??? Hemoglobin A1C 11/09/2023 6.2 % Final ??? eAVG Glucose 11/09/2023 131.24 mg/dL Final X-ray chest PA and lateral Narrative: TWO VIEW CHEST HISTORY: Preoperative cardiopulmonary evaluation, obesity. COMPARISON: None. FINDINGS: The heart is normal in size. The mediastinum is unremarkable. The lungs are clear. There is no pneumothorax. Impression: No acute cardiopulmonary process. Images reviewed, interpreted, and dictated by Dr. Carlos Richardson. Transcribed by Lupe Martinez PA-C. Assessment & Plan Colon stricture Obesity PONV HTN Hx c diff Pt to proceed with surgery, plan to stay 1-2 nights. Electronically signed by: Fabiana De La Torre APRN, 11/16/2023 at 10:18 AM Cosigned by Monty Marsh MD at 11/16/2023 10:57 AM EST RTMENT OPERATIONS MANAGER RTMENT OPERATIONS MANAGER documented in this encounter Consult Notes * German Proctor MD - 11/17/2023 12:23 PM EST Images from the original note were not included. HOSPITALIST HISTORY AND PHYSICAL Patient: Aditya Blakely Date: 11/17/2023 PCP: Ata Lyons MD Date of Service: 11/17/[address] Marsh. Reason for consult rectal management. Chief Complaint: Abdominal pain. History of Present Illness Very pleasant 43-year-old white female who was recently diagnosed with colonic stricture. Patient underwent colonoscopy as outpatient. Reported unable to pass the scope beyond the sigmoid colon due to tight angulation. Likely due to stricture. Underwent CT scan abdomen and pelvis. This most likely adhesions to bowel kinking and twisting colon. Patient was seen and evaluated by Dr. Marsh. Subsequently underwent low anterior resection performed 11/16/2023 patient tolerated procedure very well. She does not have bowel movement yet not passing gas yet. Just feels weak tired and lethargic. Complaining of mild headache. Review of Systems Constitutional: No fevers, chills Eye: No blurry vision, no discharge HEENT: No sore throat, no nasal congestion Respiratory: No cough, no shortness of breath Cardiovascular: No Chest pain, no palpitations Objective Vitals: Temp: [97.2 ??F (36.2 ??C)-99.5 ??F (37.5 ??C)] 99.5 ??F (37.5 ??C) Pulse: [16-97] 97 Resp: [0-27] 16 BP: (91-125)/(50-71) 125/57 Intake/Output: Intake/Output Summary (Last 24 hours) at 11/17/2023 1223 Last data filed at 11/17/2023 1000 Gross per 24 hour Intake 3487.5 ml Output 4525 ml Net -1037.5 ml Physical exam: General: Alert and oriented, no acute distress morbid obese Neurologic: Awake, alert, and oriented X3, no apparent focal deficits Eye: EOMI, normal conjunctiva HENT: Normocephalic, atraumatic Neck: no carotid bruits, no JVD Lungs: Good air entry bilaterally. Heart: Normal rate, regular rhythm, no murmur Abdomen: Soft, non-tender, non-distended, diminished bowel sounds. Musculoskeletal: Normal range of motion and strength, no tenderness or swelling Skin: Skin is warm, dry, no rashes or lesions Psychiatric: Anxious Labs: Results for orders placed or performed during the hospital encounter of 11/16/23 (from the past 24 hour(s)) CBC (Hemogram only) Status: Abnormal Collection Time: 11/17/23 4:56 AM Result Value Ref Range WBC 26.0 (H) 4.5 - 10.5 K/??L RBC 5.09 3.93 - 5.22 M/??L Hemoglobin 14.9 11.2 - 15.7 GM/DL Hematocrit 44.5 34.1 - 44.9 % MCV 87 79 - 95 fL MCH 29.3 25.6 - 32.2 pg MCHC 33.5 32.2 - 36.5 GM/DL RDW 12.6 11.7 - 14.9 % Platelets 397 (H) 163 - 369 K/CU MM MPV 9.7 9.4 - 12.4 fL Basic Metabolic Panel Status: Abnormal Collection Time: 11/17/23 4:56 AM Result Value Ref Range Sodium 133 (L) 136 - 146 meq/L Potassium 4.2 3.5 - 5.1 meq/L Chloride 106 102 - 112 meq/L CO2 24 21 - 32 meq/L Anion Gap 7 (L) 9 - 20 BUN 7 7 - 22 mg/dL Creatinine 0.67 0.55 - 1.02 mg/dL BUN/Creatinine 10 8 - 20 Glucose 116 (H) 74 - 106 mg/dL Calcium 9.0 8.4 - 10.1 mg/dL Osmolality Calc 265.3 eGFR (mL/min/1.73m2) >60 >=60 mL/min/1.73m2 Radiology: Radiology Results (last day) No results found for the last 24 hours. Medications: Scheduled Meds: ??? acetaminophen 1,000 mg Oral Q6H 1,000 mg at 11/17/23 0533 And ??? ketorolac 15 mg Intravenous Q6H 15 mg at 11/17/23 0530 ??? alvimopan 12 mg Oral BID 12 mg at 11/17/23 0905 ??? heparin 5,000 Units Subcutaneous Q12H 5,000 Units at 11/17/23 0905 Continuous Infusions: ??? dextrose 5%-sodium chloride 0.45% (D5-1/2NS) + KCl 20 mEq/L 125 mL/hr at 11/17/23 0528 ??? lactated Ringers Stopped (11/16/23 1521) PRN Meds: ??? diazePAM ??? ondansetron Or ??? ondansetron PF ??? oxyCODONE Past Medical History: Diagnosis Date ??? C. difficile colitis ??? Hypertension ??? Kidney stone ??? PONV (postoperative nausea and vomiting) ??? Seasonal allergies Past Surgical History: Procedure Laterality Date ??? SECTION ??? HYSTERECTOMY ??? TONSILLECTOMY Social History Tobacco Use ??? Smoking status: Never ??? Smokeless tobacco: Never Substance Use Topics ??? Drug use: Never No family history on file. Allergies Allergen Reactions ??? Chlorpheniramine Other reaction(s): throat swelling ??? Phenylephrine Other reaction(s): throat swelling ??? Pseudoephedrine Other reaction(s): throat swelling ??? Pyrilamine Other reaction(s): thraot swelling ??? Erythromycin Base Other reaction(s): Other Medications Prior to Admission Medication Sig Dispense Refill Last Dose ??? cetirizine (ZyrTEC) 10 MG tablet Take 1 tablet (10 mg total) by mouth daily. 11/16/2023 at 0600 ??? lactobacillus rhamnosus, GG, (CULTURELLE) 10 billion cell capsule Take 1 capsule by mouth daily. 11/15/2023 ??? metoprolol succinate (TOPROL-XL) 25 MG 24 hr tablet Take 1 tablet (25 mg total) by mouth nightly. 11/15/2023 at 2200 ??? montelukast (SINGULAIR) 10 mg tablet Take 1 tablet (10 mg total) by mouth nightly. 11/15/2023 at 2200 ??? spironolactone (ALDACTONE) 50 MG tablet Take 1 tablet (50 mg total) by mouth daily. 11/15/2023 ??? cyclobenzaprine (FLEXERIL) 10 MG tablet Take 1 tablet (10 mg total) by mouth as needed. ??? diclofenac (VOLTAREN) 75 MG EC tablet Take 1 tablet (75 mg total) by mouth as needed. Orders Placed This Encounter Procedures ??? CBC (Hemogram only) ??? Basic Metabolic Panel ??? CBC - Hemogram ([facility]) ??? Clear Liquid diet ??? Notify provider per standard parameters ??? Strict intake and output ??? Catheter care ??? Chewing gum (Sugar Free) Do not give to Illeostomy Patients. ??? If patient not tolerating PO at 48 hours post op consult Laundry Assistant ??? Up with Assistance ??? Activity (specify) ??? Advance diet as tolerated ??? Continuous Pulse Oximetry ??? Full code ??? Inpatient consult to Hospitalist ??? Dietary Nutrition Supplement Supplement Selection: Ensure Enlive; Quantity Per Serving: One ??? POC-Potassium ??? Glucose, iSTAT Meter ??? POC-Potassium ??? Type and Screen ??? Admit to inpatient Assessment and Plan Colonic stricture/state:. Unable to perform colonoscopy as outpatient. S/p low anterior resection done by Dr. Marsh yesterday 11/16/2023. Follow-up pathology results Initiate incentive spirometry. Pain management. Clear liquid diet advance as tolerated. IV fluid Jean catheter discontinued. Ambulate with physical therapy. Leukocytosis. Likely reactive due to surgery. Abdominal exam within normal limit. No fever or chills. Repeat CBC in AM. Hypertension. Controlled. Resume home dose Lopressor. IV hydralazine as needed. GI and DVT prophylaxis. Diet: Orders Placed This Encounter Procedures ??? Clear Liquid diet Code Status: Current Code Status Full code Disposition: Signed: GERMAN PROCTOR MD 11/17/2023, 12:23 PM RTMENT OPERATIONS MANAGER documented in this encounter Miscellaneous Notes * Plan of Care - Afsaneh Waller RN - 11/18/2023 9:59 AM EST Problem: Pain Goal: Patient's pain/discomfort is manageable Description: Assess and monitor patient's pain using appropriate pain scale. Collaborate with interdisciplinary team and initiate plan and interventions as ordered. Re-assess patient's pain level after pain management intervention. Outcome: Adequate for Discharge Problem: Safety Goal: Patient will be injury free during hospitalization Description: Assess and monitor vitals signs, neurological status including level of consciousness and orientation. Assess patient's risk for falls and implement fall prevention plan of care and interventions per hospital policy. Ensure arm band on, uncluttered walking paths in room, adequate room lighting, call light and overbed table within reach, bed in low position, wheels locked, side rails up per policy, and non-skid footwear provided. Outcome: Adequate for Discharge Problem: Potential for Developing a Blood Clot Goal: Tissue perfusion is adequate - venous Description: Assess and monitor skin color and temperature, skin integrity, pulses, capillary refill, edema, pain in extremities, Homans' sign, labs (D- dimer), and diagnostic tests (ultrasound, CT scan, VQ scan). Monitor for signs and symptoms of deep vein thrombosis (swelling of calf/thigh, redness, pain, tenderness). Monitor for signs and symptoms of pulmonary embolism (dyspnea, tachypnea, tachycardia). Collaborate with interdisciplinary team and initiate plans and interventions as needed Outcome: Adequate for Discharge Problem: Daily Care Goal: Daily care needs are met Description: Assess and monitor ability to perform self care and identify potential discharge needs. Outcome: Adequate for Discharge Problem: Potential for Infection Goal: Remains infection free Description: Assess and monitor vital signs, skin (color, moisture, integrity, turgor), respiratorystatus, urinary and gastrointestinal status, and labs (WBC, cultures). Administer antibiotics and antipyretics as ordered. Ensure aseptic care of all intravenous lines, invasive tubes/drains and wounds. Monitor for signs and symptoms of infection (redness, warmth, discharge, increased body temperature). Wash hands properly before and after each patient care activity. Follow isolation guidelines per hospital protocol/policy. Collaborate with interdisciplinary team and initiate plan and interventions as ordered. Outcome: Adequate for Discharge Problem: Psychosocial Needs Goal: Demonstrates ability to cope with hospitalization/illness Description: Assess and monitor patients ability to cope with his/her illness. Outcome: Adequate for Discharge Goal: Collaborate with patient/family/caregiver to identify patient specific goals for this hospitalization Outcome: Adequate for Discharge Problem: Anxiety Goal: Anxiety is at manageable level Description: Assess and monitor patient's anxiety level. Monitor for signs and symptoms of anxiety both physical and emotional (heart palpitations, chest pain, shortness of breath, headaches, nausea,feeling jumpy, restlessness, irritable, apprehensive). Collaborate with interdisciplinary team and initiate plan and interventions as ordered. Outcome: Adequate for Discharge Problem: Inadequate Coping Goal: Demonstrates ability to cope effectively Description: Patient is able to verbalize feelings related to emotional state. Outcome: Adequate for Discharge Goal: Verbalizes adaptive coping mechanisms Description: Able to verbalize adaptive coping mechanisms such as physical activity, distraction, and deep breathing exercises. Outcome: Adequate for Discharge Goal: Verbalizes personal strengths Description: Spend time with the patient using empathy and active listening skills. Outcome: Adequate for Discharge Problem: Progressive Mobility Goal: BMAT Level 1 - With full mechanical lifting assistance: Outcome: Adequate for Discharge Goal: BMAT Level 2 - With 2-person and/or mechanical lifting assistance: Outcome: Adequate for Discharge Goal: BMAT Level 3 - With 1 to 2-person and/or mechanical lifting assistance: Outcome: Adequate for Discharge Goal: BMAT Level 4 - With 1-person assistance or mobility aid as needed (walker, cane, crutches): Outcome: Adequate for Discharge Problem: Discharge Barriers Goal: Patient's discharge needs are met Description: Collaborate with interdisciplinary team and initiate plans and interventions as needed. Outcome: Adequate for Discharge RTMENT OPERATIONS MANAGER * Plan of Care - Elisa Dubois RN - 11/16/2023 5:51 PM EST Problem: Pain Goal: Patient's pain/discomfort is manageable Description: Assess and monitor patient's pain using appropriate pain scale. Collaborate with interdisciplinary team and initiate plan and interventions as ordered. Re-assess patient's pain level after pain management intervention. Outcome: Progressing Problem: Safety Goal: Patient will be injury free during hospitalization Description: Assess and monitor vitals signs, neurological status including level of consciousness and orientation. Assess patient's risk for falls and implement fall prevention plan of care and interventions per hospital policy. Ensure arm band on, uncluttered walking paths in room, adequate room lighting, call light and overbed table within reach, bed in low position, wheels locked, side rails up per policy, and non-skid footwear provided. Outcome: Progressing Problem: Potential for Developing a Blood Clot Goal: Tissue perfusion is adequate - venous Description: Assess and monitor skin color and temperature, skin integrity, pulses, capillary refill, edema, pain in extremities, Homans' sign, labs (D- dimer), and diagnostic tests (ultrasound, CT scan, VQ scan). Monitor for signs and symptoms of deep vein thrombosis (swelling of calf/thigh, redness, pain, tenderness). Monitor for signs and symptoms of pulmonary embolism (dyspnea, tachypnea, tachycardia). Collaborate with interdisciplinary team and initiate plans and interventions as needed Outcome: Progressing Problem: Daily Care Goal: Daily care needs are met Description: Assess and monitor ability to perform self care and identify potential discharge needs. Outcome: Progressing Problem: Potential for Infection Goal: Remains infection free Description: Assess and monitor vital signs, skin (color, moisture, integrity, turgor), respiratorystatus, urinary and gastrointestinal status, and labs (WBC, cultures). Administer antibiotics and antipyretics as ordered. Ensure aseptic care of all intravenous lines, invasive tubes/drains and wounds. Monitor for signs and symptoms of infection (redness, warmth, discharge, increased body temperature). Wash hands properly before and after each patient care activity. Follow isolation guidelines per hospital protocol/policy. Collaborate with interdisciplinary team and initiate plan and interventions as ordered. Outcome: Progressing Problem: Psychosocial Needs Goal: Demonstrates ability to cope with hospitalization/illness Description: Assess and monitor patients ability to cope with his/her illness. Outcome: Progressing Goal: Collaborate with patient/family/caregiver to identify patient specific goals for this hospitalization Outcome: Progressing Problem: Anxiety Goal: Anxiety is at manageable level Description: Assess and monitor patient's anxiety level. Monitor for signs and symptoms of anxiety both physical and emotional (heart palpitations, chest pain, shortness of breath, headaches, nausea,feeling jumpy, restlessness, irritable, apprehensive). Collaborate with interdisciplinary team and initiate plan and interventions as ordered. Outcome: Progressing Problem: Inadequate Coping Goal: Demonstrates ability to cope effectively Description: Patient is able to verbalize feelings related to emotional state. Outcome: Progressing Goal: Verbalizes adaptive coping mechanisms Description: Able to verbalize adaptive coping mechanisms such as physical activity, distraction, and deep breathing exercises. Outcome: Progressing Goal: Verbalizes personal strengths Description: Spend time with the patient using empathy and active listening skills. Outcome: Progressing Problem: Progressive Mobility Goal: BMAT Level 1 - With full mechanical lifting assistance: Outcome: Progressing Goal: BMAT Level 2 - With 2-person and/or mechanical lifting assistance: Outcome: Progressing Goal: BMAT Level 3 - With 1 to 2-person and/or mechanical lifting assistance: Outcome: Progressing Goal: BMAT Level 4 - With 1-person assistance or mobility aid as needed (walker, cane, crutches): Outcome: Progressing Problem: Discharge Barriers Goal: Patient's discharge needs are met Description: Collaborate with interdisciplinary team and initiate plans and interventions as needed. Outcome: Progressing RTMENT OPERATIONS MANAGER * Op Note - Monty Marsh MD - 11/16/2023 3:02 PM EST Date: 11/16/2023 Procedures: Procedure(s): Robotic low anterior resection IN 0900, 2.5HRS(A), 3HRS(R), PASS-TBS, JEANCARLOS [facility]EN[facility]OD REQUESTED Diagnosis: Pre-Op Diagnosis Codes: * Colonic stricture (HCC) [K56.699] Post-Op Diagnosis Codes: * Colonic stricture (HCC) [K56.699] Indications: Aditya Blakely is an 43 y.o. female presenting with a stricture in the colon.Patient recently underwent colonoscopy by Dr. Yeager. He was unable to pass the scope beyond the sigmoid colon as there was tight angulation and and what appeared to be a stricture. A subsequent CT scan showed that the patient had a thickened colon in the sigmoid area with what appeared to be an adhesion that could be kinking the colon. The question was also raised whether this might be a malignancy or other neoplastic process. Patient was sent to me for evaluation of this. I have talked with herabout proceeding with laparoscopy and possible low anterior resection to manage this. I discussed the risks, benefits, alternatives of this and she is agreed to proceed.. The risks, benefits, and alternatives of the above procedure were discussed and the patient has elected to proceed. Surgeons: Surgeon(s) and Role: * Monty Marsh MD - Primary Findings: At time of surgery patient was noted to have a markedly kinked sigmoid colon and folded back on itself. It did not appear to be malignant, but certainly seem to be thickened from the adhesions. Additionally I noted the patient had a previous hysterectomy and salpingectomy. Patient's ovaries remained and there was a large ovarian cyst sitting on the right ovary. I noted that there were dense adhesions of the patient's vaginal cuff to the anterior rectal wall in addition the ovaries were densely adherent to the rectum as well. The patient's kink in the sigmoid colon lie just above this. I felt the best way to manage this was going to be to perform a low anterior resection. Careful dissection was made to mobilize the ovaries off of the anterior surface of the rectum and to separate the vaginal cuff from the anterior surface of the rectum. This took some time and effort.Ultimately I was able to pass a sizer up the rectum and see that we had a nice straight shot. Additionally, the patient's tight adhesive kink in the sigmoid colon was above this area and would come out nicely with the specimen. I performed a standard low anterior resection with distal descending colon to rectal anastomosis with an end-to-end anastomosis. I did buttress the anastomosis secondary to the fact that the patient had very dense adhesions of the ovaries in the vagina to anterior rectalwall and I did not want this to be in the field of my anastomosis. Given the type of adhesions I am seeing in the pelvis today, I do wonder about whether patient may have endometriosis in this area previously. Procedure Details: Patient was correctly identified, brought to the operating room, placed in a supine position on the OR table, underwent induction of anesthesia and was intubated. She had an OG tube and a Jean catheter for the case. She was prepped and draped over the perineum and abdomen in theusual sterile fashion. An appropriate timeout was performed. The procedure began with the placement of a Veress needle in the left upper quadrant through which we achieved pneumoperitoneum with good flow pressure pattern. Subsequent to this an 8 mm Optiview port was placed in the right mid abdomen and I did my initial survey of the abdomen. Patient had smalladhesions of the omentum to the anterior abdominal wall and there was a loop of small bowel stuck to the anterior abdominal wall as well. These were all taken down by scissor dissection. I then was able to flip the omentum over the transverse colon and sweep the small bowel out of the pelvis. The patient was tipped into 18 degrees to 10 Trendelenburg and 6 degrees of [id number]. At this point I can see the anatomy and the pelvis and it is noted in the findings above. The remaining robotic ports were placed and an extraction site created in the upper mid abdomen. Once the robot was docked to the patient, I began my dissection. I began a medial to lateral dissection under the inferior mesenteric artery pedicle. This was isolated after identifying the left ureter and gonadal vessels and sweeping these out of our field. I divided the infra mesenteric artery pedicle with a clip proximally and vessel sealer distally. I then continued medial to lateral dissection over Gerota's fascia to mobilize the entire splenic flexure taking down the renal colic and splenocolic ligaments. Once this was done I carried my dissection over the sacral promontory and mobilized the mesorectum down to the mid rectum. At this point I had to deal with the inflammatory type massand dense adhesions that existed anteriorly on the rectal wall. These were primarily at the patient's left and right ovary which were stuck to the anterior surface of the rectum and the vagina densely adherent to the anterior surface of the rectum as well. I spent the next 40 minutes carefully dissecting these off so that the rectum would pop up into the field. Once this happened I was able to then divide the lateral attachments of the colon and the rectum from the splenic flexure all the way down to the mid rectum on the left. It should be noted that I took care to identify the left ureter and keep this out of our field of dissection. During the course of the operation I did rupture the cyst on the right ovary which measured about 3 cm and was filled with chocolate colored material. OnceI had the entire rectum mobilized, a sizer was passed up the rectum and then gradually I increased the sizers so that I could have the appropriate passage of my stapler. I chose a spot that was at the top of the rectum but below where the tight kink in the sigmoid colon was and we divided the rectum here with a 60 mm linear robotic thick tissue load stapler. The mesorectum was divided with vesselsealer. Next, I chose a spot in the distal descending colon that would be amenable to an anastomosis and the bowel was soft and supple here. This was above the kink in the colon with a tight adhesion. I divided the mesocolon up to this point. At this point I injected fluorescent dye and turned on firefly to assure myself good blood supply. An enterotomy was made and the anvil of a 28 CEA stapler was passed into the descending colon. A subsequent load of the linear stapler was used to come across the descending colon and the anvil spike was advanced through the staple line so that the stapler anvil would sit nicely on the transverse staple line of my descending colon. At this point I closed the enterotomy in the specimen with a 3 OV lock stitch and the specimen was moved off to the side. Next my attention turned towards making the anastomosis. I passed the stapler up the rectum and advanced the spike out the anastomosis. I connected the anvil to the stapler and closed. We did an end-to-end anastomosis. Care was taken to have good blood supply in both bowel segments as witnessed by additional fluorescent dye injection and firefly confirmation. I made sure we had no twist on the anastomosis. Once the anastomosis was made, I checked the donuts and we had complete donuts. At this point I thought the anterior rectal wall was somewhat thinned and I felt that it would be best if we buttress this. I was able to place about 5-0 Vicryl sutures anteriorly along the rectal wall to buttr ess it. I was happy with this. An additional 5 cc of the IC-Green had been injected and firefly confirmation of good blood supply. At this point I performed proctoscopy and saw that we had a circumferentially intact anastomosis at 14 cm. We had healthy bowel on both sides of the anastomosis. And there was no evidence of an air leak. At this point the specimen was removed from an extraction site in the upper mid abdomen. Pneumoperitoneum was reachieved and we did a thorough irrigation of the abdomen and pelvis. There was clear return and minimal blood loss. There is no evidence of bleeding. At this point we used an Endo Close device to close the 12 mm port site in the right lower quadrant. At this point the pneumoperitoneum wa s released and the extraction site closed with a #1 PDS in interrupted [id number] fashion. Allwounds were irrigated and closed with 3-0 Monocryl suture in a subcuticular fashion and Prineo dressing placed. The patient was awakened, extubated, and brought to recovery in good condition. The patient was seen in the preoperative area. The site of surgery was properly noted/marked if necessary per policy. The patient has been actively warmed in preoperative area. Preoperative antibiotics have been ordered and given within 1 hours of incision. Venous thrombosis prophylaxis have been ordered including chemical prophylaxis Anesthesia: General w/Block Estimated Blood Loss: * No values recorded between 11/16/2023 11:49 AM and 11/16/2023 3:02 PM * Total IV Fluids: 1200 mL Drains: Urethral Catheter Non-latex (Active) NG/OG Tube Orogastric 18 Fr. Center mouth (Active) Specimens: Specimens (From admission, onward) Start Ordered 11/16/23 124 Tissue Exam RELEASE UPON ORDERING 11/16/23 1249 Complications: None * No complications entered in OR log * Disposition: PACU - hemodynamically stable. Condition: stable Attending Attestation: I was present and scrubbed for the entire procedure. RTMENT OPERATIONS MANAGER documented in this encounter Plan of Treatment Not on file documented as of this encounter Procedures Procedure Name Priority Date/Time Associated Diagnosis Comments CBC W/ AUTO DIFF Routine 11/18/2023 5:59 AM EST MAGNESIUM Routine 11/18/2023 5:59 AM EST BASIC METABOLIC PANEL Routine 11/18/2023 5:59 AM EST CBC HEMOGRAM ([facility]) Routine 11/17/2023 4:56 AM EST BASIC METABOLIC PANEL Routine 11/17/2023 4:56 AM EST TISSUE EXAM [facility] AP Routine 11/16/2023 12:49 PM EST Colonic stricture (HCC) DE LAP,SURG,COLECTOMY ,W/ANAST 11/16/2023 11:49 AM EST Colonic stricture (HCC) ISTAT GLUCOSE POC Routine 11/16/2023 11: 43 AM EST POCT-POTASSIUM Routine 11/16/2023 11:43 AM EST TYPE AND SCREEN ([place] BKR) STAT 11/16/2023 11:42 AM EST EKG-SCANNED 11/16/2023 documented in this encounter Results * (ABNORMAL) Magnesium (11/18/2023 5:59 AM EST) Magnesium 2.5(H) 1.5 - 2.4 mg/dL 11/18/2023 7:05 AM EST [facility] Blood Venipuncture / Unknown 11/18/2023 5:59 AM EST 11/18/2023 6:41 AM EST German Proctor MD LAB BLOOD ORDERABLES Final Resu lt Performing Organization Address City/State/[facility] Co de Phone Number [facility] [address] [place] [address], [facility] [phone] * (ABNORMAL) CBC with automated diff (11/18/2023 5:59 AM EST) WBC 16.4(H) 4.5 - 10.5 K/??L 11/18/2023 6:54 AM [facility] RBC 4.46 3.93 - 5.22 M/??L 11/18/2023 6:54 AM [facility] Hemoglobin 12.9 11.2 - 15.7 GM/DL 11/18/2023 6:54 AM [facility] Hematocrit 39.0 34.1 - 44.9 % 11/18/2023 6:54 AM [facility] MCV 87 79 - 95 fL 11/18/2023 6:54 AM [facility] MCH 28.9 25.6 - 32.2 pg 11/18/2023 6:54 AM [facility] MCHC 33.1 32.2 - 36.5 GM/DL 11/18/2023 6:54 AM [facility] RDW 13.1 11.7 - 14.9 % 11/18/2023 6:54 AM [facility] Platelets 358 163 - 369 K/CU MM 11/18/2023 6:54 AM [facility] MPV 9.4 9.4 - 12.4 fL 11/18/2023 6:54 AM [facility] % Neutros 67 34 - 71 % 11/18/2023 6:54 AM [facility] % Lymphs 23 19 - 53 % 11/18/2023 6:54 AM [facility] % Monos 9 3 - 9 % 11/18/2023 6:54 AM [facility] % Eos 1 0 - 1 % 11/18/2023 6:54 AM [facility] % Baso 0 0 - 2 % 11/18/2023 6:54 AM [facility] NRBC Absolute 0.00 0 - 0.12 K/ul 11/18/2023 6:54 AM [facility] # Neutros 11.00(H) 1.56 - 6.13 K/??L 11/18/2023 6:54 AM [facility] # Lymphs 3.70(H) 1.00 - 3.50 K/??L 11/18/2023 6:54 AM [facility] # Monos 1.46(H) 0.16 - 1.00 K/??L 11/18/2023 6:54 AM [facility] # Eos 0.10 0.00 - 0.80 K/??L 11/18/2023 6:54 AM [facility] # Baso 0.07 0.00 - 0.20 K/??L 11/18/2023 6:54 AM [facility] Immature Granulocytes-Re lative 0.40 0.00 - 0.60 % 11/18/2023 6:54 AM [facility] # IG 0.07(H) 0.00 - 0.05 K/uL 11/18/2023 6:54 AM [facility] Blood Venipuncture / Unknown 11/18/2023 5:59 AM EST 11/18/2023 6:41 AM [facility] - 11/18/2023 6:54 AM EST When CBC w/ Auto Diff is ordered the lab will add a Manual Differential as a quality check at no additional charge if: Lymphocytes greater than seventy five percent with normal or increased WBC Monocytes greater than Fifteen percent Basophil greater than four percent Bands >10% or several immature myeloids are seen on scan Blast? Flag noted Atypical Lymph flag noted us German Proctor MD LAB BLOOD ORDERABLES Final Resu lt [facility] [address] [phone] * (ABNORMAL) Basic Metabolic Panel (11/18/2023 5:59 AM EST) Sodium 139 136 - 146 meq/L 11/18/2023 7:05 AM [facility] Potassium 3.7 3.5 - 5.1 meq/L 11/18/2023 7:05 AM [facility] Chloride 111 102 - 112 meq/L 11/18/2023 7:05 AM [facility] CO2 24 21 - 32 meq/L 11/18/2023 7:05 AM [facility] Anion Gap 8(L) 9 - 20 11/18/2023 7:05 AM [facility] BUN 8 7 - 22 mg/dL 11/18/2023 7:05 AM [facility] LABORATORY Creatinine 0.69 0.55 - 1.02 mg/dL 11/18/2023 7:05 AM [facility] BUN/Creatinine 12 8 - 20 11/18/2023 7:05 AM [facility] Glucose 98 74 - 106 mg/dL 11/18/2023 7:05 AM [facility] Calcium 8.5 8.4 - 10.1 mg/dL 11/18/2023 7:05 AM [facility] Osmolality Calc 275.8 7:05 AM [facility] eGFR (mL/min/1.73m2) >60 >=60 mL/min/1.7 3m2 11/18/2023 7:05 AM [facility] Comment:eGFR of <60 suggests chronic kidney disease if found over a 3 month period of time. eGFR <15 indicates renal failure. Blood Venipuncture / Unknown 11/18/2023 5:59 AM EST 11/18/2023 6:41 AM EST us German Proctor MD LAB BLOOD ORDERABLES Final Resu lt [facility] [address] [phone] * (ABNORMAL) Basic Metabolic Panel (11/17/2023 4:56 AM EST) Sodium 133(L) 136 - 146 meq/L 11/17/2023 6:48 AM [facility] Potassium 4.2 3.5 - 5.1 meq/L 11/17/2023 6:48 AM [facility] Chloride 106 102 - 112 meq/L 11/17/2023 6:48 AM [facility] CO2 24 21 - 32 meq/L 11/17/2023 6:48 AM [facility] Anion Gap 7(L) 9 - 20 11/17/2023 6:48 AM [facility] BUN 7 7 - 22 mg/dL 11/17/2023 6:48 AM [facility] Creatinine 0.67 0.55 - 1.02 mg/dL 11/17/2023 6:48 AM [facility] BUN/Creatinine 10 8 - 20 11/17/2023 6:48 AM [facility] Glucose 116(H) 74 - 106 mg/dL 11/17/2023 6:48 AM [facility] Calcium 9.0 8.4 - 10.1 mg/dL 11/17/2023 6:48 AM [facility] Osmolality Calc 265.3 6:48 AM [facility] eGFR (mL/min/1.73m2) >60 >=60 mL/min/1.7 3m2 11/17/2023 6:48 AM [facility] Comment:eGFR of <60 suggests chronic kidney disease if found over a 3 month period of time. eGFR <15 indicates renal failure. Blood Venipuncture / Unknown 11/17/2023 4:56 AM EST 11/17/2023 6:12 AM EST us Monty Marsh MD LAB BLOOD ORDERABLES Final Resul t Performing Organization Address [facility]/ZIP Co de Phone Number [facility] [address] [phone] * (ABNORMAL) CBC (Hemogram only) (11/17/2023 4:56 AM EST) WBC 26.0(H) 4.5 - 10.5 K/??L 11/17/2023 6:16 AM EST [facility] RBC 5.09 3.93 - 5.22 M/??L 11/17/2023 6:16 AM [facility] Hemoglobin 14.9 11.2 - 15.7 GM/DL 11/17/2023 6:16 AM [facility] Hematocrit 44.5 34.1 - 44.9 % 11/17/2023 6:16 AM [facility] MCV 87 79 - 95 fL 11/17/2023 6:16 AM [facility] MCH 29.3 25.6 - 32.2 pg 11/17/2023 6:16 AM [facility] MCHC 33.5 32.2 - 36.5 GM/DL 11/17/2023 6:16 AM [facility] RDW 12.6 11.7 - 14.9 % 11/17/2023 6:16 AM [facility] Platelets 397(H) 163 - 369 K/CU MM 11/17/2023 6:16 AM [facility] MPV 9.7 9.4 - 12.4 fL 11/17/2023 6:16 AM [facility] Blood Venipuncture / Unknown 11/17/2023 4:56 AM EST 11/17/2023 6:11 AM EST us Monty Marsh MD LAB BLOOD ORDERABLES Final Resul t [facility] 1 [place] [address], [facility] [phone] * Tissue Exam (11/16/2023 12:49 PM EST) AP RESULT See Note: [facility] Comment: [facility] [address] ?[place], [place] ??[address] or [phone] Lorenzo Pendleton M.D., Analyst PATIENT NAME ? LABORATORY NO. [id number] ??ADITYA BLAKELY. ?[id number] ? AGE ? SEX ??SSN ? CLIENT REF # [facility] ?[birth year] ?1980 ??F ?[id number] 1 [facility] ?REQUESTING M.D. ? ATTENDING M.D. ? [place] [address] ?MONTY MARSH DATE COLLECTED ?DATE RECEIVED ?DATE REPORTED 11/16/2023 ?11/16/2023 ? 11/23/2023 DIAGNOSIS: COLON, RESECTION, RECTSIGMOID: Benign colon with extensive involvement by endometriosis Endometriosis extends through the muscular wall with involvement of surrounding fibromuscular and fibroadipose tissues Accompanying diverticulitis Negative for malignancy Five lymph nodes negative for metastatic carcinoma, (0/5) COMMENT: ??A selection of (4) immunohistochemical stains is performed, evaluated with the appropriate controls, with the following results (A6) PAX8- positive within areas of interest CK7-positive within the area of interest, CK20- positive within colonic mucosa, negative within foci of endometriosis, CDX2- positive within colonic mucosa, negative within areas of endometriosis. CLINICAL HISTORY: Other intestinal obstruction unspecified as to partial versus complete obstruction SPECIMENS RECEIVED: COLON, RESECTION , RECTSIGMOID MICROSCOPIC DESCRIPTION: Tissue blocks are prepared and slides are examined microscopically on all specimens. See diagnosis for details. The internal and external (both positive and negative) controls reacted appropriately. Some of our immunohistochemical and in situ hybridization studies are performed as analyte specific reagents. The following statement applies to those tests: This test was developed, and its performance characteristics determined by [facility]. It has not been cleared or approved by the US Food and Drug Administration. However, the FDA has determined that approval and clearance are not necessary. Professional interpretation rendered by Ivy Waldrop M.D., F.C.A.P. at [facility], [facility], [address] [place] [address]. GROSS DESCRIPTION: Specimen received in formalin labeled large intestine, colon-rectosigmoid colon and consists of a 13 cm in length unoriented segment of colon with attached fat having an average diameter of 2.5 cm. ??There is also a separate eagle metallic anvil having 2 attached apparent anastomotic donuts (each measuring approximately 1.7 x 1.5 x 1.0 cm). ??The serosal surface of the segment of colon is marin and wrinkled with focal fibrovascular adhesions. ??No perforation is grossly identified. ??There is a strictured appearing area (inked blue) located 4.3 cm from the nearest surgical margin. ??Sectioning reveals a thickened bowel wall at the area of stricture with possible congested diverticula. ??The remainder of the mucosal surface is marin and wrinkled with multiple diverticula throughout the remainder of the segment. ??No polyps, or discrete mass lesions are grossly identified. ??Sectioning through the attached fat reveals 5 possible lymph nodes ranging in size from 0.1 to 0.4 cm. ??No abscessed or necrotic appearing areas are grossly identified. ??Residential Sales Representative sections are submitted in 10 cassettes as follows: A1-apparent anastomotic donuts A2-margin nearest strictured area A3- opposite margin A4-mesenteric margin shave nearest strictured area A5-A9- sections of bowel with strictured area in A5-A6 and diverticula in A7-A9, A10- lymph nodes. ??JTM/RLL REVIEWED, DIAGNOSED AND ELECTRONICALLY SIGNED BY: Ivy Waldrop M.D., FSuellen. CPT CODES: ??00065, 30810, 91789m5 Tissue RECTOSIGMOID STRUCTURE / Unknown 11/16/2023 12:49 PM EST Monty Marsh MD PATHOLOGY/CYTOLOGY ORDERABLES Fi nal Result Performing Organization Address City/[facility]/ZIP Co de Phone Number [facility] [address] * POC-Potassium (11/16/2023 11:43 AM EST) POC Potassium 3.7 3.5 - 4.9 mmol/L 11/16/2023 11:52 AM EST [facility] Blood 11/16/2023 11:4 3 AM EST 11/16/2023 11:52 AM EST Narrative [facility] - 11/16/2023 11:52 AM EST Rv Service Technician ID is - [id number] Monty Marsh MD POINT OF CARE TEST ORDERABLES Fi nal Result [facility] [address] [phone] * Glucose, iSTAT Meter (11/16/2023 11:43 AM EST) POC-GLUCOSE 103 70 - 105 mg/dL 11/16/2023 11:52 AM EST [facility] Blood 11/16/2023 11:4 3 AM EST 11/16/2023 11:52 AM EST Narrative [facility] - 11/16/2023 11:52 AM EST Rv Service Technician ID is - [id number] us Monty Marsh MD POINT OF CARE TEST ORDERABLES Fi nal Result [facility] 1 [place] [address], [facility] [phone] * Type and Screen (11/16/2023 11:42 AM EST) ABO/Rh O Positive 11/16/2023 9:50 AM EST [facility] [place] Antibody Screen Negative 11/16/2023 9:50 AM EST [facility] [place] HISTCHK HIST CHECK PERFORMED 11/16/2023 9:50 AM EST [facility] [place] Blood Venipuncture / Unknown 11/16/2023 11:42 AM EST 11/16/2023 12:04 PM EST us Monty Marsh MD [facility] TEST ORDERABLES F inal Result Performing Organization Address [facility] Co de Phone Number [facility] [place] [address] [phone] * EKG-SCANNED (11/16/2023) Narrative 11/16/2023 Ordered by an unspecified provider. us Default Scanning Provider SCAN ORDERS Final Result documented in this encounter Visit Diagnoses Diagnosis Colon stricture (HCC)- Primary Unspecified intestinal obstruction Colonic stricture (HCC) Unspecified intestinal obstruction documented in this encounter Admitting Diagnoses Diagnosis Colon stricture (HCC) Unspecified intestinal obstruction documented in this encounter Administered Medications Inactive Administered Medications - up to 3 most recent administrations Medication Order MAR Action Action Date Dose Rate Site acetaminophen (TYLENOL) tablet 1,000 mg 1,000 mg Once, oral, On Sun11/16/23 at 1030, For 1 dose, Recommended maximum dose of acetaminophen is 4000 mg from all sources in 24 hours, Pre-op Given 11/16/2023 10:11 AM EST 1,000 mg acetaminophen (TYLENOL) tablet 1,000 mg 1,000 mg Every 6 hours interval, oral, First dose on Sun11/16/23 at 1830, 1st line analgesic, Phase II/On Unit Given 11/18/2023 5:52 AM EST 1,000 mg Given 11/17/2023 5:53 PM EST 1,000 mg Given 11/17/2023 12:58 PM EST 1,000 mg alvimopan (ENTEREG) capsule 12 mg 12 mg Once, oral, On Sun11/16/23 at 1030, For 1 dose, Avoid use for more than 7 days or 15 doses. Inpatient use only. First dose given pre-op. Discontinue alvimopan once bowel function has returned, or after a maximum of 15 doses., Pre-op, Does the patient meet all the eligibility criteria above, and I understand the risks associated with the use of this medication (ENTEREG REMS Program): Yes, FDA Indications (select one): Partial small bowel resection surgery with primary anastomosis, Has the patient received therapeutic opioid doses for equal to or greater than 7 consecutive days immediately prior to taking alvimopan? No, Does the patient have Endstage Renal Disease? No, Does the patient have severe Hepatic Impairment? No, Is the patient undergoing surgery for correction of complete bowel obstruction? No Given 11/16/2023 10:1 1 AM EST 12 mg alvimopan (ENTEREG) capsule 12 mg 12 mg 2 times daily, oral, First dose on Sun11/16/23 at 2100, For 14 doses, Stop after 14 doses OR if patient passes flatus. Give only if received preop., Phase II/On Unit, Does the patient meet all the eligibility criteria above, and I understand the risks associated with the use of this medication (ENTEREG REMS Program): Yes, FDA Indications (select one): Partial large bowel resection, Has the patient received therapeutic opioid doses for equal to or greater than 7 consecutive days immediately prior to taking alvimopan? No, Does the patient have Endstage Renal Disease? No, Does the patient have severe Hepatic Impairment? No, Is the patient undergoing surgery for correction of complete bowel obstruction? No Given 11/18/2023 8:43 AM EST 12 mg Given 11/17/2023 8:37 PM EST 12 mg Given 11/17/2023 9:05 AM EST 12 mg dextrose 5%-sodium chloride 0.45% + KCl 20 mEq/L Continuous, intravenous, at 125 mL/hr, Starting on Sun11/16/23 at 1830, Phase II/On Unit New Bag 11/17/2023 5:28 AM EST 125 mL/hr New Bag 11/16/2023 7:18 PM EST 125 mL/hr diazePAM (VALIUM) injection 2.5 mg 2.5 mg Every 6 hours PRN, intravenous, Abdominal Spasms, Starting on Sun11/16/23 at 1812, Phase II/On Unit famotidine (PEPCID) tablet 20 mg 20 mg Once, oral, On Sun11/16/23 at 1030, For 1 dose, Pharmacist to renally dose if CrCl is less than 50 mL/min or on CRRT., Pre-op Given 11/16/2023 10:14 AM EST 20 mg famotidine (PEPCID) tablet 20 mg 20 mg 2 times daily, oral, First dose on Sun11/17/23 at 1300, Pharmacist to renally dose if CrCl is less than 50 mL/min or on CRRT. Given 11/18/2023 8:43 AM EST 2 0 mg Given 11/17/2023 8:37 PM EST 20 mg Given 11/17/2023 12:58 PM EST 20 mg fentaNYL (SUBLIMAZE) 50 mcg/mL injection Starting on Sun11/16/23 at 0956, For 1 dose, Created by cabinet override fentaNYL (SUBLIMAZE) injection 25 mcg 25 mcg Every 5 min PRN, intravenous, severe pain (7-10), Starting on Sun11/16/23 at 1609, Maximum cumulative dose 100 mcg, PACU Given 11/16/2023 4:51 PM EST 25 mcg fentaNYL (SUBLIMAZE) injection 50 mcg 50 mcg Once, intravenous, On Sun11/16/23 at 1200, For 1 dose Given 11/16/2023 11:23 AM EST 50 mcg heparin injection 5,000 Units 5,000 Units Once, subcutaneous, On Sun11/16/23 at 1030, For 1 dose, Pre-op Given 11/16/2023 10:11 AM EST 5,000 Units Abdominal Tissue heparin injection 5,000 Units 5,000 Units Every 12 hours scheduled, subcutaneous, First dose on Sun11/16/23 at 2100, Phase II/On Unit Given 11/18/2023 8:43 AM EST 5,000 Units Abdominal Tissue Given 11/17/2023 8:37 PM EST 5,000 Units L eft Arm Given 11/17/2023 9:05 AM EST 5,000 Units A bdominal Tissue ketorolac (TORADOL) injection 15 mg 15 mg Every 6 hours interval, intravenous, First dose on Sun11/16/23 at 1830, For 5 days, 1st line analgesic, Phase II/On Unit Given 11/18/2023 5:52 AM EST 1 5 mg Given 11/17/2023 5:54 PM EST 15 mg Given 11/17/2023 12:58 PM EST 15 mg lactated ringers (LR) infusion 1,000 mL Continuous, intravenous, at 100 mL/hr, Starting on Sun11/16/23 at 1030 Restarted 11/16/2023 2:08 PM EST Continued by Anesthesia 11/16/2023 11:49 AM EST 100 mL/hr New Bag 11/16/2023 10:51 AM EST 1,000 mLs 100 mL/hr meloxicam (MOBIC) tablet 15 mg 15 mg Once, oral, On Sun11/16/23 at 1030, For 1 dose, Pre-op Given 11/16/2023 10:11 AM EST 15 mg metoprolol succinate (TOPROL-XL) 24 hr tablet 25 mg 25 mg Every Night, oral, First dose on 11/17/23 at 2100, Hold for systolic BP < 90 mmHg or for HR < 50 BPM Do Not Crush or Chew (Tablet may be split) Given 11/17/2023 8:38 PM EST 25 mg midazolam (VERSED) 1 mg/mL injection Starting on Sun11/16/23 at 0955, For 1 dose, Created by cabinet override midazolam (VERSED) injection 2 mg 2 mg Once, intravenous, On Sun11/16/23 at 1200, For 1 dose, Pre-op Given 11/16/2023 11:23 AM EST 2 mg montelukast (SINGULAIR) tablet 10 mg 10 mg Every Night, oral, First dose on 11/17/23 at 2100 Given 11/17/2023 8:37 PM EST 10 mg ondansetron (ZOFRAN-ODT) disintegrating tablet 4 mg 4 mg Every 8 hours PRN, oral, nausea, vomiting, Starting on Sun11/16/23 at 1812, 1st line. If inadequate response within 60 minutes, proceed to next-line agent for same PRN reason or contact provider if no further options ordered., Phase II/On Unit ondansetron PF (ZOFRAN) injection 4 mg 4 mg Every 8 hours PRN, intravenous, nausea, vomiting, Starting on Sun11/16/23 at 1812, Give IV if patient is unable to take orally. 1st line If inadequate response within 60 minutes, proceed to next-line agent for same PRN reason or contact provider if no further options ordered. For IV push, give over 2 - 5 minutes., Phase II/On Unit oxyCODONE (ROXICODONE) immediate release tablet 5 mg 5 mg Every 4 hours PRN, oral, moderate pain (4-6), Starting on Sun11/16/23 at 1812, 2nd line analgesic. Give only if inadequate response (less than 50% reduction in pain score) 60 minutes after administration of 1st line analgesics + adjuvants (if ordered). , Phase II/On Unit Given 11/17/2023 8:37 PM EST 5 mg Given 11/17/2023 9:05 AM EST 5 mg Given 11/16/2023 8:18 PM EST 5 mg pregabalin (LYRICA) capsule 75 mg 75 mg Once, oral, On Sun11/16/23 at 1030, For 1 dose, Pre-op Given 11/16/2023 10:11 AM EST 75 mg documented in this encounter Active and Recently Administered Medications Times are shown in EST. Scheduled Medication Order 11/16/2023 11/17/2023 11/18/2023 acetaminophen (TYLENOL) tablet 1,000 mg (COMPLETED) 1,000 mg Once, oral, On Sun11/16/23 at 1030, For 1 dose, Recommended maximum dose of acetaminophen is 4000 mg from all sources in 24 hours, Pre-op 1011 (Given - Provider: Cherelle Fields RN) acetaminophen (TYLENOL) tablet 1,000 mg(Linked Group 1) 1,000 mg Every 6 hours interval, oral, First dose on Sun11/16/23 at 1830, 1st line analgesic, Phase II/On Unit 1824 (Given - Provider: Paula Degroot RN) 0009 (Given - Provider: Narendra Torres, MARVA)0533 (Given - Provider: Narendra Torres, MARVA)1258 (Given - Provider: Paula Degroot RN)1753 (Given - Provider: Paula Degroot RN) 0125 (Not Given - Provider: Ralph Harmon RN - Reason: Order parameters not met)0552 (Given - Provider: Ralph Harmon RN)1230 (Due) alvimopan (ENTEREG) capsule 12 mg (COMPLETED) 12 mg Once, oral, On Sun11/16/23 at 1030, For 1 dose, Avoid use for more than 7 days or 15 doses. Inpatient use only. First dose given pre-op. Discontinue alvimopan once bowel function has returned, or after a maximum of 15 doses., Pre-op, Does the patient meet all the eligibility criteria above, and I understand the risks associated with the use of this medication (ENTEREG REMS Program): Yes, FDA Indications (select one): Partial small bowel resection surgery with primary anastomosis, Has the patient received therapeutic opioid doses for equal to or greater than 7 consecutive days immediately prior to taking alvimopan? No, Does the patient have Endstage Renal Disease? No, Does the patient have severe Hepatic Impairment? No, Is the patient undergoing surgery for correction of complete bowel obstruction? No 1011 (Given - Provider: Cherelle Fields RN) alvimopan (ENTEREG) capsule 12 mg 12 mg 2 times daily, oral, First dose on Sun11/16/23 at 2100, For 14 doses, Stop after 14 doses OR if patient passes flatus. Give only if received preop., Phase II/On Unit, Does the patient meet all the eligibility criteria above, and I understand the risks associated with the use of this medication (ENTEREG REMS Program): Yes, FDA Indications (select one): Partial large bowel resection, Has the patient received therapeutic opioid doses for equal to or greater than 7 consecutive days immediately prior to taking alvimopan? No, Does the patient have Endstage Renal Disease? No, Does the patient have severe Hepatic Impairment? No, Is the patient undergoing surgery for correction of complete bowel obstruction? No 2017 (Given - Provider: Narendra Torres RN) 904 (Given - Provider: Palua Degroot RN)2036 (Given - Provider: Ralph Harmon RN) 0843 (Given - Provider: Narendra Torres RN) ertapenem (INVanz) 1 g in sodium chloride 0.9 % (NS) MBP 50 mL IVPB (CANCELED) 1 g Once, intravenous, at 100 mL/hr, On Sun11/16/23 at 1030, For 1 dose, Pre-op, Ertapenem is a RESTRICTED ANTIMICROBIAL; Select the criteria for why Ertapenem is required: A one-time dose prior to discharge within 24 hours for outpatient IV antibiotic therapy., Please choose an indication: Surgical Prophylaxis 1215 (New Bag - Provider: Rafat Coleman CRNA) famotidine (PEPCID) tablet 20 mg (COMPLETED) 20 mg Once, oral, On Sun11/16/23 at 1030, For 1 dose, Pharmacist to renally dose if CrCl is less than 50 mL/min or on CRRT., Pre-op 1014 (Given - Provider: Cherelle Fields RN) famotidine (PEPCID) tablet 20 mg 20 mg 2 times daily, oral, First dose on Sun11/17/23 at 1300, Pharmacist to renally dose if CrCl is less than 50 mL/min or on CRRT. 1258 (Given - Provider: Paula Degroot RN)2036 (Given - Provider: Ralph Harmon, MARVA) 0843 (Given - Provider: Narendra Torres, MARVA) fentaNYL (SUBLIMAZE) injection 50 mcg (COMPLETED) 50 mcg Once, intravenous, On Sun11/16/23 at 1200, For 1 dose 1123 (Given - Provider: Cherelle Fields RN) heparin injection 5,000 Units (COMPLETED) 5,000 Units Once, subcutaneous, On Sun11/16/23 at 1030, For 1 dose, Pre-op 101 (Given - Provider: Cherelle Fields RN) heparin injection 5,000 Units 5,000 Units Every 12 hours scheduled, subcutaneous, First dose on Sun11/16/23 at 2100, Phase II/On Unit 2018 (Given - Provider: Narendra Torres, MARVA) 09 (Given - Provider: Paula Degroot RN)2036 (Given - Provider: Ralph Harmon, MARVA) 0843 (Given - Provider: Narendra Torres, MARVA) ketorolac (TORADOL) injection 15 mg(Linked Group 1) 15 mg Every 6 hours interval, intravenous, First dose on Sun11/16/23 at 1830, For 5 days, 1st line analgesic, Phase II/On Unit 1826 (Given - Provider: Paula Degroot, MARVA) 0010 (Given - Provider: Narendra Torres RN)0530 (Given - Provider: Narendra Torres RN)1258 (Given - Provider: Paula Degroot RN)1754 (Given - Provider: Paula Degroot, MARVA) 0125 (Not Given - Provider: Ralph Harmon RN - Reason: Patient/family refused)0552 (Given - Provider: Ralph Harmon RN)1230 (Due) meloxicam (MOBIC) tablet 15 mg (COMPLETED) 15 mg Once, oral, On Sun11/16/23 at 1030, For 1 dose, Pre-op 1011 (Given - Provider: Cherelle Fields RN) metoprolol succinate (TOPROL-XL) 24 hr tablet 25 mg 25 mg Every Night, oral, First dose on Sun11/17/23 at 2100, Hold for systolic BP < 90 mmHg or for HR < 50 BPM Do Not Crush or Chew (Tablet may be split) 2037 (Given - Provider: Ralph Harmon RN) midazolam (VERSED) injection 2 mg (COMPLETED) 2 mg Once, intravenous, On Sun11/16/23 at 1200, For 1 dose, Pre-op 1123 (Given - Provider: Cherelle Fields RN) montelukast (SINGULAIR) tablet 10 mg 10 mg Every Night, oral, First dose on Sun11/17/23 at 2100 2036 (Given - Provider: Ralph Harmon RN) pregabalin (LYRICA) capsule 75 mg (COMPLETED) 75 mg Once, oral, On Sun11/16/23 at 1030, For 1 dose, Pre-op 1011 (Given - Provider: Cherelle Fields RN) scopolamine (TRANSDERM-SCOP) patch 1 mg/72 hr (COMPLETED) 1.5 mg Once (1 patch), transdermal (scopolamine), Administer over 72 Hours, On Sun11/16/23 at 1030, For 1 dose, Pre-op 1149 (Given - Provider: Rafat Coleman CRNA - Comment: Placed by preop prior to arrival to OR on L side) Continuous Medication Order 11/16/2023 11/17/2023 11/18/2023 dextrose 5%-sodium chloride 0.45% + KCl 20 mEq/L Continuous, intravenous, at 125 mL/hr, Starting on Sun11/16/23 at 1830, Phase II/On Unit 1918 (New Bag - Provider: Paula Degroot RN) 0528 (New Bag - Provider: Narendra Torres RN) lactated ringers (LR) infusion 1,000 mL Continuous, intravenous, at 100 mL/hr, Starting on Sun11/16/23 at 1030 1051 (New Bag - Provider: Cherelle Fields RN)1149 (Continued by Anesthesia - Provider: Rafat Coleman CRNA)1407 (Paused - Provider: Rafat Coleman CRNA - Comment: Switch to gravity)1408 (Restarted - Provider: Rafat Coleman CRNA)1521 (Stopped - Provider: Jeanie Dong CRNA) PRN Medication Order 11/16/2023 11/17/2023 11/18/2023 cyclobenzaprine (FLEXERIL) tablet 10 mg 10 mg As needed, oral, muscle spasms, Starting on Sun11/17/23 at 1224 diazePAM (VALIUM) injection 2.5 mg 2.5 mg Every 6 hours PRN, intravenous, Abdominal Spasms, Starting on Sun11/16/23 at 1812, Phase II/On Unit fentaNYL (SUBLIMAZE) injection 25 mcg (CANCELED) 25 mcg Every 5 min PRN, intravenous, severe pain (7-10), Starting on Sun11/16/23 at 1609, Maximum cumulative dose 100 mcg, PACU 1651 (Given - Provider: Olga Lidia Garibay RN) ondansetron (ZOFRAN-ODT) disintegrating tablet 4 mg(Linked Group 2) 4 mg Every 8 hours PRN, oral, nausea, vomiting, Starting on Sun11/16/23 at 1812, 1st line. If inadequate response within 60 minutes, proceed to next-line agent for same PRN reason or contact provider if no further options ordered., Phase II/On Unit ondansetron PF (ZOFRAN) injection 4 mg(Linked Group 2) 4 mg Every 8 hours PRN, intravenous, nausea, vomiting, Starting on Sun11/16/23 at 1812, Give IV if patient is unable to take orally. 1st line If inadequate response within 60 minutes, proceed to next-line agent for same PRN reason or contact provider if no further options ordered. For IV push, give over 2 - 5 minutes., Phase II/On Unit oxyCODONE (ROXICODONE) immediate release tablet 5 mg 5 mg Every 4 hours PRN, oral, moderate pain (4-6), Starting on Sun11/16/23 at 1812, 2nd line analgesic. Give only if inadequate response (less than 50% reduction in pain score) 60 minutes after administration of 1st line analgesics + adjuvants (if ordered). , Phase II/On Unit 2017 (Given - Provider: Narendra Torres RN) 904 (Given - Provider: Paula Degroot RN)2036 (Given - Provider: Ralph Harmon RN) Linked Groups Order Group 1: acetaminophen (TYLENOL) tablet 1,000 mgJump to med 1,000 mg Every 6 hours interval, oral, First dose on Sun11/16/23 at 1830, 1st line analgesic, Phase II/On Unit And ketorolac (TORADOL) injection 15 mgJump to med 15 mg Every 6 hours interval, intravenous, First dose on Sun11/16/23 at 1830, For 5 days, 1st line analgesic, Phase II/On Unit Group 2: ondansetron (ZOFRAN-ODT) disintegrating tablet 4 mgJump to med 4 mg Every 8 hours PRN, oral, nausea, vomiting, Starting on Sun11/16/23 at 1812, 1st line. If inadequate response within 60 minutes, proceed to next-line agent for same PRN reason or contact provider if no further options ordered., Phase II/On Unit Or ondansetron PF (ZOFRAN) injection 4 mgJump to med 4 mg Every 8 hours PRN, intravenous, nausea, vomiting, Starting on Sun11/16/23 at 1812, Give IV if patient is unable to take orally. 1st line If inadequate response within 60 minutes, proceed to next-line agent for same PRN reason or contact provider if no further options ordered. For IV push, give over 2 - 5 minutes., Phase II/On Unit documented in this encounter Care Teams Aircraft Structural Repairer Relationship Specialty Start Date End Date Ata Lyons MD [address] [place] [address] PCP - General Adolescent Medicine 11/09/23 documented as of this encounter
--- OUTSIDE RECORDS SUMMARY | 2024-10-31 15:47 | XMS_ITS | Encounter Summary ---
Author Organization [employer] Address [address] [place] [address] Care Team Providers Care Deputy Sheriff Generalist/Bailiff Name Role Phone Ata Lyons MD Primary Care Provider [phone] Encounter Details Date Type Department Care Team (Latest Contact Info) Description 11/16/2023 Travel Social History Tobacco Use Types Packs/Day Years [...] place to sleep or slept in a residential (including now)? 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
--- OUTSIDE RECORDS SUMMARY | 2024-10-31 15:47 | XMS_ITS | Referral Summary ---
Author Organization [employer] Address [address] [place] [address] Care Team Providers Care Frame Aligner Name Role Phone Ata Lyons MD Primary Care Provider [phone] Allergies Active Allergy Reactions Criticality Noted Date [...] place to sleep or slept in a snf (including now)? 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
--- OUTSIDE RECORDS SUMMARY | 2024-10-31 15:47 | XMS_ITS | Data Portability ---
Author Organization [facility] [place] [facility] Address [address] [place] [address] Assessment No assessment recorded. Plan of Treatment Reminders Order Date Submit Date Provider Last Modified By Organization Details Last Modified Time Details Appointments RECHECK 2024 09:40A M NADER MTZ MD Not available Not available Not available Lab None recorded . Referral None recorded . Procedures None recorded . Surgeries None recorded . Imaging None recorded . Medication Orders None recorded . Patient TargetsNo targets recorded. Patient InstructionsNo instructions recorded. Reason for Referral None Reported. Results Created Date Observation Date Name Description Value Unit Range Abnormal Flag Note LastModifiedBy Organization Detail LastModifiedTime 07/02/20 24 07/01/2024 US, trans vagin al No observ ation record ed. BARCODE Not Available 2023 11:00:56 Result Notes None recorded. Problems No Known Problems Procedures Surgical History Date Name Laterality Status Provider Name and Address Organization Details Recorded Time 07/01/20 24 Transvaginal Ultrasound; Non-OB completed NADER MTZ MD [address] [place] [address], [id number], [place] [facility] 07/01/2024 13:39:39 11/16/20 23 partial excision of large intestine completed Capri Biggs [facility] 01/01/2024 11:12:50 09/26/20 22 Hysterectomy completed Capri Biggs [facility] 01/01/2024 11:12:24 Imaging Results Imaging Date Name Status LastModified by Organization Details LastModified Time 07/01/2024 US, transvaginal completed BARCODE Informat ion not available 07/02/2024 11:00:56 Procedure Notes None recorded. Medical Equipment None Reported. Allergies Allergen ID Allergen Name Allergen Category Reaction Reaction Severity Criticality Documentation Date Start Date Code Code System Note Provider Name and Address Organization Details Recorded Time 690023 E-Mycin medicatio n abdominal pain Not available Not available 01/01/202484310 8 RxNorm Capri Biggs [facility] 10:56:53 Medications Name Sig Start Date Stop Date Status Note LastModified by Organization Details LastModified Time Provera 10 mg tablet Take 1 tablet every day by oral route. 07/01 completed Not Available Not Available Not Available montelukast 10 mg tablet Take 1 tablet every day by oral route. active Not Available Not Available No t Available metoprolol succinate ER 25 mg tablet,extend ed release 24 hr Take 1 tablet every day by oral route. active Not Available Not Available No t Available cetirizine 10 mg capsule Take by oral route. active Not Available Not Available No t Available Probiotic active Not Available Not Dianne ilable Not Available Vitals Date Recorded Body height Body mass index (BMI) Body weight Systolic blood pressure Diastolic blood pressure Provider Name and Address Organization Details Last Updated DateTime 01/01/2024 157.48 cm 39 kg/m2 66313.17 g 124 mm[Hg] 68 mm[Hg] Capri [facility] 11:14:39 Date Recorded Body height Provider Name an d Address Organization Details Last Updated DateTime 07/01/2024 157.48 cm [facility] 0 07/01/2024 11:02:33 Social History None recorded. Functional Status None recorded. Mental Status None recorded. Family History Nothing Reported. Medical History No medical history recorded. Gynecological HistoryNo gynecological history recorded. Obstetrics History GPAL:G 0 P 0 0 0 0 Past Encounters Encounter ID Performer Location Encounter Start Date Encounter Closed Date Diagnosis/Indication Diagnosis SNOMED-CT Code Diagnosis ICD10 Code [id number] MD SANDRA BRAVO [facility] [address] [place] [address] 01/01/2024 10:48:33 01/01/2024 11:59:45 Endometriosis of pelvis 82734163 N80.9 [id number] MD SANDRA BRA[address] [place] [address] 07/01/2024 10:55:31 07/01/2024 11:31:34 Postprocedural pelvic peritoneal adhesions 564719035 N99.4 Health Concerns Section Related Observation LastModified by Organization Detai ls LastModified Time None Recorded Concern Status LastModified by Organization Details LastModified Time None Recorded Advance Directives Directive None Recorded Payers Encounter Date Sequence Insurance Name Policy Number Policy Martinez Covered Member ID Martinez Member ID Guarantor Name 01/01/2024 1 [place] [id number] 1 Marly Jay Elzbieta [id number] Crystal Elzbieta 07/01/2024 1 [place] [id number] 1 Marly Jay Elzbieta [id number] Crystal Elzbieta Notes Date Note Type Note Provider Name and Address Organization Details Recorded Time 01/01/2024 text/html 43 y/o new patie nt referral from Dr. Munguia here today for endometriosis hysterectomy 09/2022 due to fibroids and heavy bleeding, developed post op infection pt had a colonoscopy fall 2022 due to some bleeding from the summer. Colonoscopy was unable to be competed. She was referred to Dr. Munguia who did a bowel resection 11/16/23. During surgery he drained brown fluid from her right ovary Dr. Munguia referred pt here to be evaluated. Scar tissue from her hysterectomy affected her colon, causing the resection. He desires to have her evaluated from DIRECTOR OF RESIDENCE LIFE standpoint to try to make sure there is not a recurrence of this. Upon reading the pathology from Dr. Munguia and the surgical pathology there were some immunostaining results which I am not familiar with. Multiple of those were listed in some were positive but some were negative. I am not familiar again with any of those testings I assume that are probably done because of ruling out colon cancer. The final pathology said there was negative for colon cancer and malignancy. The pathology showed benign colon but with extensive amount of endometriosis all the way through the colon wall. Obviously this was the final cause of the bowel surgery and stenosis. Now that that segment has been excised she is going to follow-up with Dr. Munguia and have a repeat colonoscopy in a month since they were not able to get past this area of endometriosis and stenosis during the initial try. The rest the pathology so there is some diverticula noted. There was negative lymph nodes and negative for malignancy Patient has the main desire that she just does not want to have to lose any more of her colon. I discussed with her that we have 2 options. We could do definitive treatment by going ahead and doing a surgery to remove both ovaries which may decrease her risk for further endometriosis that would invade into her colon and reattach the ovaries. It sounds like Dr. Munguia did a endometrioma drainage at the time of the lower anterior resection of the colon. It looks like it was done laparoscopic with hand assist with a larger incision in the upper abdomen. She tells me about her hysterectomy that was initially trialed as laparoscopic but it has had to be opened and a low transverse hysterectomy due to complications and uterine size and then she had a lot of postop complications infections another issues with that surgery. I discussed that am not sure that I can 100% tell her that I can prevent recurrence of endometriosis that would cause stricturing of the colon and thus further surgery. I do not think it necessarily be helpful to go on control pills or even surgical removal of the ovaries. I feel like she has had 2 very complicated surgeries recently although the laparoscopic bowel resection was actually easier than the hysterectomy. I amhesitating to go back right and again and do more surgery just because of risk of scar tissue developing from surgery and things such as that. Anyway what I have recommended were going to just repeat an ultrasound examination in 6 months. She is currently 100% asymptomatic. She is getting a colonoscopy in [address] Munguia can see if he can get up through the colon and do the full screening. I told her that that would also be another way to look for recurrences just to find any endometriosis by colonoscopy as well. NADER MTZ MD [address] [place], [address], [facility] 01/01/2024 12:29:56 07/01/2024 text/html 43 y/o presents for TVUS for endometriosis from visit 01/01/24: we will do a transvaginal ultrasound in 6m see if the endometrioma is coming back or anything hysterectomy 2021 and at that time she was not diagnosed with endometriosis. She says her hysterectomy which was not done here by me just was done due to bleeding and fibroids but she was not told that she had endometriosis at that time. But then in 2022 she had a sudden bowel obstruction and had to have part of her colon removed due to that which was a very traumatic experience to her. Her surgeon identified pelvic and ovarian adhesions as the cause of that and according to the operative report did dissect the adhesions of the vaginal cuff and ovaries off of the rectum at that time of the surgery. The operative report does say that the kink in the colon that had led to the obstruction was superior to that so I am not 100% sure that the adhesions of the ovaries to the rectum were the cause of her kinking and thus surgical repair by colectomy and low anterior resection. Then she has healed and recovered from that her bowels are back to normal she has no abdominal pain. She has no constipation bloating. She has no pain in her pelvis from her ovaries. But she is super concerned about having this happen again.Refer to operative report which is tin the chart as gastroenterology note from December 05, 2023. T NADER MTZ MD [address] [place], [address], [place] [facility] 07/01/2024 13:42:42 OBGyn Episode No OBEpisode recorded.
--- OUTSIDE RECORDS SUMMARY | 2024-10-31 15:48 | XMS_ITS | Encounter Summary ---
Author Organization [facility] [employer] Address [address] [place] [address] Care Team Providers Care Vending Manager Name Role Phone Ata Lyons MD Primary Care Provider [phone] Reason for Referral * Diagnostic X-Ray (Routine) - Closed Specialty Diagnoses / Procedures Referred By Roberto t Referred To Contact Diagnoses Preop testing Procedures X-ray chest PA and lateral Rob Munguia MD [address] [facility] [place] [address] Phone: tel: fax: Referral ID Status Reason Start Date Expiration Date Visits Re quested Visits Authorized [id number] Closed 11/09/2023 05/07/2024 1 1 Reason for Visit * Auth/Cert (Routine) Specialty Diagnoses / Procedures Referred By Contlexa t Referred To Contact Diagnoses Colonic stricture (HCC) COLON STRICTURE Procedures SC LAP,SURG,COLECTOMY,W/ANAST ROBOTIC LAPAROSCOPY,LOW ANTERIOR RESECTION [facility] [address] [place] [address] Phone: tel: fax: [facility] [address] [facility] [address] [place] [address] Phone: tel: fax: Referral ID Status Reason Start Date Expiration Date Visits Re quested Visits Authorized [id number] 1 1 Encounter Details Date Type Department Care Team (Latest Contact Info) Description 11/09/2023 1:53 PM EST - 11/09/2023 11:59 PM EST Hospital Encounter [facility] [address] [place] [address] Rob Munguia MD [address] [place] [address] Preop testing Discharge Disposition: Home or Self Care Social [...] Recorded Patient Health Questionnaire-2 Score 0 11/09/2023 [facility] Intimate Partner Violence Answer Da te [...] on file 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 08/06/2023 11/18/2023 oxyCODONE-acetami nophen (PERCOCET) 5-325 mg per tablet Take 1 tablet by mouth every 6 (six) hours as needed for Pain for up to 3 days. Max Daily Amount: 4 tablets 10 tablet 11/17/2023 11/18/2023 psyllium 0.52 gram capsule Take 1 capsule (0.52 g total) by mouth daily. 11/16/2023 documented as of this encounter Plan of Treatment Not on file documented as of this encounter Procedures Procedure Name Priority Date/Time Associated Diagnosis Comments XR CHEST PA AND LATERAL Routine 11/09/2023 11:27 AM EST Preop testing documented in this encounter Results * X-ray chest PA and lateral (11/09/2023 11:27 AM EST) Anatomical Region Laterality Modality Chest X-Ray 11/09/2023 2:27 PM EST Impressions 11/09/2023 2:36 PM EST No acute cardiopulmonary process. Images reviewed, interpreted, and dictated by Dr. Carlos Richardson. Transcribed by Lupe Martinez PA-C. Narrative 11/09/2023 2:36 PM EST TWO VIEW CHEST HISTORY: Preoperative cardiopulmonary evaluation, obesity. COMPARISON: None. FINDINGS: The heart is normal in size. The mediastinum is unremarkable. The lungs are clear. There is no pneumothorax. Procedure Note Carlos Richardson MD - 11/09/2023 TWO VIEW CHEST HISTORY: Preoperative cardiopulmonary evaluation, obesity. COMPARISON: None. FINDINGS: The heart is normal in size. The mediastinum is unremarkable. The lungs are clear. There is no pneumothorax. IMPRESSION: No acute cardiopulmonary process. Images reviewed, interpreted, and dictated by Dr. Carlos Richardson. Transcribed by Lupe Martinez PA-C. Rob Munguia MD [facility] ORDERABLE S Final Result documented in this encounter Visit Diagnoses Diagnosis Preop testing Unspecified pre-operative examination documented in this encounter Care Teams Vending Manager Relationship Specialty Start Date End Date Ata Lyons MD [address] [place] [id number] PCP - General Adolescent Medicine 11/09/23 documented as of this encounter
--- OUTSIDE RECORDS SUMMARY | 2024-10-31 15:48 | XMS_ITS | Encounter Summary ---
Author Organization [facility] Address [address] [place] [address] Care Team Providers Care Head Of Partner Development Name Role Phone Ata Lyons MD Primary Care Provider [phone] Reason for Referral * Diagnostic X-Ray (Routine) - Closed Specialty Diagnoses / Procedures Referred By Premac t Referred To Contact Diagnoses Preop testing Procedures X-ray chest PA and lateral Rob Munguia MD [address] [facility] [address] [place] [address] Phone: tel: fax: Referral ID Status Reason Start Date Expiration Date Visits Re quested Visits Authorized [id number] Closed 11/09/2023 05/07/2024 1 1 Reason for Visit * Auth/Cert (Routine) Specialty Diagnoses / Procedures Referred By Contac t Referred To Contact Diagnoses Colonic stricture (HCC) COLON STRICTURE Procedures MN LAP,SURG,COLECTOMY,W/ANAST ROBOTIC LAPAROSCOPY,LOW ANTERIOR RESECTION [facility] Operating Room [address] [place] [address] Phone: tel: fax: [facility] Operating Room [address] [place] [address] Phone: tel: fax: Referral ID Status Reason Start Date Expiration Date Visits Re quested Visits Authorized [id number] 1 1 Encounter Details Date Type Department Care Team (Latest Contact Info) Description 11/09/2023 9:40 AM EST - 11/09/2023 11:38 AM EST Hospital Encounter [facility] Preadmission Testing [address] [place] [address] Rob Munguia MD [address] [facility] [address] [place] [address] Preop testing (Primary Dx); PONV (postoperative nausea and vomiting) Discharge Disposition: Home or Self Care Anesthesia Record Procedure Summary Procedure Name Responsible Anesthesiologist Anesthesia Start Time Anesthesia Stop Time (ROBOTIC LOW ANTERIOR RESECTION) (Abdomen) Sachin Pires MD 11/16/23 1149 11/16/23 1513 Events Date Time Event Comment 11/16/2023 1149 An Start Patient identif ied and chart reviewed. 1149 An Start Data Anesthesia mac kit and monitors checked. 1149 Pre-Induction Eval FDA anest hesia machine pre-use checkout completed. Patient status reassessed prior to start of anesthesia care. 1200 An Induction 1207 An Intubation 1223 Quick Note Timeout complet ed with all team members prior to procedure start 1225 Anesthesia Ready 1235 Quick Note Previous SPO2 v alues d/t to Poor pleath quality/waveform. Switching to other site/sensor change 1422 Quick Note Fentanyl handed off to Jude Dong. 1505 An Extubation 1511 an stop data 1513 Handoff to Receiving I compl eted my handoff to the receiving clinician during which we: 1. Identified the patient. 2. Identified the responsible provider. 3. Reviewed the pertinent medical history. 4. Discussed the surgical course. 5. Reviewed intra-op anesthesia management and issues during anesthesia. 6. Set expectations for post-procedure period. 7. Allowed opportunity for questions and acknowledgement of understanding. 1513 An Stop Meds * Agents No agents on file. * Blood No blood administrations on file. Lines, Drains, and Airways Type Details Placement Removal Wound 11/16/23; 1226; Inci flaco; Abdomen; Not applicable 11/16/23 1226 by Chau Doan RN Wound 11/16/23; 1226; Inci flaco; Perineum; Not applicable 11/16/23 1226 by Chau Doan RN Peripheral IV Placement Date: 10/27 01/18; Placement Time: 1050; Size: 22 G; Orientation: Left, Posterior; Location: Hand; Site Prep: Chlorhexidine ; Local Anesthetic: None; Inserted by: yolanda; Insertion attempts: 1; Securement Method: Taped; Removal Date: 11/18/23; Removal Time: 1220; Removal Reason: Per order 11/16/23 1050 by Yolanda Fields RN 11/18/23 1220 by Narendra Torres RN Peripheral IV Placement Date: 10/27 01/18; Placement Time: 1142; Orientation: Right; Location: Antecubital; Site Prep: Alcohol; Local Anesthetic: None; Securement Method: Taped; Removal Date: 11/18/23; Removal Time: 1130; Removal Reason: Per order 11/16/23 1142 by Yolanda Fields RN 11/18/23 1130 by Narendra Torres RN Urethral Catheter Placement Date: 10/27 01/18; Placement Time: 1200; Inserted by: Devin Richards; Type: Non-latex; Balloon Size: 5 mL; Urine Returned: Yes; Removal Date: 11/17/23; Removal Time: 0500; Removal Reason: Per protocol 11/16/23 1200 by Chau Doan RN 11/17/23 0500 by Narendra Torres RN ETT Placement Date 11/16; Placement Time 1207 (created via procedure documentation); Airway Size 7.5; Airway Cuffed Yes; Removal Date 11/16/23; Removal Time 1505 11/16/23 1207 by Rafat Coleman CRNA 11/16/23 1505 by Jeanie Dong CRNA NG/OG Tube Placement Date: 10/27 01/18; Placement Time: 1212; Inserted by: Vero Coleman CRNA; Tube Type: Orogastric; Tube Size: 18 Fr.; Removal Date: 11/16/23; Removal Time: 1834 11/16/23 1212 by Rafat Coleman CRNA 11/16/23 1834 by Elisa Maier RN documented in this encounter Social History Tobacco Use Types Packs/Day Years [...] on file Legal Sex 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 Gender Identity Not on file Sexual Orientation Not on file documented as of this encounter Last Filed Vital Signs Vital Sign Reading Time Taken Comments Blood Pressure 121/85 11/09/2023 10:37 AM EST Pulse 78 11/09/2023 10:37 AM EST Temperature 36.2 ??C (97.1 ??F) 11/09/2023 10:[address] Respiratory Rate 16 11/09/2023 10:37 AM EST Oxygen Saturation 100% 11/09/2023 10:37 AM EST Inhaled Oxygen Concentration - - Weight 100.2 kg (221 lb) 11/09/2023 10:37 AM EST Height 158.8 cm (5' 2.5 ) 11/09/2023 10:37 AM ES T Body Mass Index 39.78 11/09/2023 10:37 AM EST documented in this encounter Discharge Instructions * Discharge Instructions* Marly Garzon RN - 11/09/2023 11:01 AM EST Please arrive to the hospital on: 11/16/23 Please arrive by: 1100 Day of Surgery Instructions: Your surgery date and time is documented above. Please arrive at the hospital on time. If you are unable to arrive at your designated time, call the Outpatient Surgery Department at [phone] or ext [phone] Arrive at the hospital at your designated time, and park in the main visitor parking area. GO TO ADMITTING TO REGISTER FOR SURGERY. You will be notified by outpatient surgery of any time changes in your surgery arrival time. You will ONLY be called if there is a time change. If you have any questions, please call the above phone number. If you are going home the same day as your surgery, you MUST have a responsible adult over the age of [address] you home, and REMAIN with you 24 hours after surgery. PLEASE NOTE: If you do not have a responsible adult with you the day of surgery, your surgery may be cancelled. DO NOT EAT OR DRINK ANYTHING AFTER MIDNIGHT: the night before your surgery unless otherwise indicated. This includes water, coffee, gum, mints, tobacco, etc. You may brush your teeth the morning of surgery. Try not to smoke for 2 weeks prior to surgery. DO NOT chew tobacco or use any form of tobacco 24 hours before surgery. DO NOT drink alcohol or take illicit drugs 24 hours before surgery. On the day of surgery, please take only the medications you are instructed to take. Please bring inhalers with you on the day of surgery. Please DO NOT take any NSAIDS (Ibuprofen, Blood thinners, Aspirin, Motrin, Aleve, Celebrex, etc) unless approved by your physician. DO NOT wear any jewelry (including rings and body piercings), hair pins, makeup or nail hebrew on fingers or toes on the day of surgery. If you wear contact lenses, please bring a case and solution to put them in. If you wear glasses orhearing aids, please bring a case to put those in. DIABETICS: please check your blood sugar the morning of surgery. Follow instructions given to you by the nurse. If your blood sugar is high, do what you would normally do. If you are admitted, please leave belongings in the car and have family bring them to your room later. Leave valuables such as money, credit cards or jewelry at home. Please contact your surgeon for any physical changes such as cold, flu, fever, or if you're unable to come for surgery. If you suspect you may be , please notify your physician. Please do not remove the ID bracelet or red blood bracelet if they are placed on you. You may shower in these bracelets, but do not soak them in water. Bring a copy of any healthcare directives, and legal documents such as a living will, healthcare surrogate, power of civil litigation attorney, or legal guardianship verification to the hospital on the day of surgery. GENERAL INSTRUCTIONS FOR POST OP CARE: -For the next 24 hours: Have a responsible adult (over the age of 18) with you for your safety and protection Do NOT drive, work around machines, or use any type of power equiptment Do NOT smoke Do NOT drink alcohol or while on pain medication Do NOT make any important decisions, or sign any important paperwork -After surgery, you may have a sore throat, muscle aches, dizziness, and feel tired or sleepy - You may resume medications unless directed not to by your doctor. - Your first meal after surgery should be light, and gradually increase your diet to what is normalfor you. In case of nausea, avoid solid food and take only clear liquids as tolerated. - After surgery, please plan to spend a quiet, relaxed evening at home. Resume your normal activityas prescribed by your doctor, and as tolerated. DESK COORDINATOR * Attachments The following attachments cannot be sent through Care Everywhere. * Minimally Invasive Partial Colectomy Adult (Wallisian) * General Anesthesia Adult (Wallisian) documented in this encounter Medications at Time [...] as of this encounter Plan of Treatment Scheduled Orders Name Type Priority Associated Diagnoses Orde r Schedule ECG 12 lead ECG Routine Preop testing Ordered: 11/09/2023 documented as of this encounter Procedures Procedure Name Priority Date/Time Associated Diagnosis Comments CBC HEMOGRAM (SJ-BKR) STAT 11/09/2023 11:03 AM EST Preop testing ABO/RH CONFIRMATION/RETYPE ([place] BKR) Routine 11/09/2023 11:03 AM EST Preop testing HEMOGLOBIN A1C Routine 11/09/2023 11:03 AM EST Preop testing COMPREHENSIVE METABOLIC PANEL Routine 11/09/2023 11:03 AM EST Preop testing FS_MODEL_IP_ECG 12-LEAD Routine 11/09/2023 9:55 AM EST Preop testing documented in this [...] by Dr. Carlos Richardson. Transcribed by Lupe Matrinez PA-C. Rob Munguia MD IMG DIAGNOSTIC IMAGING ORDERABLE S Final Result * Hemoglobin A1c (11/09/2023 11:03 AM EST) Hemoglobin A1C 6.2 % 11/09/2023 7:[address] [facility] Comment: Hemoglobin A1C levels are related to mean glucose during the preceding 2-3 months. Less than 7% demonstrates glycemic control in diabetic patients. Hemoglobin AlC % Suggested Diagnosis > or = 6.5 Diabetic 5.7 - 6.4 ?? Prediabetic <5.7 ? Non-diabetic eAVG Glucose 131.24 mg/dL 11/09/2023 7:[address] [facility] Blood Venipuncture / Unknown 11/09/2023 11:03 AM EST 11/09/2023 11:58 AM EST us Rob Munguia MD LAB BLOOD ORDERABLES Final Resul t [facility] [address] [phone] * ABO/RH CONFIRMATION/RETYPE (11/09/2023 11:03 AM EST) RETYPE O POSITIVE 11/08/2023 7:00 PM [facility] ([place]) Comment:[id number] Blood Venipuncture / Unknown 11/09/2023 11:03 AM EST 11/09/2023 12:57 PM EST us Rob Munguia MD [facility] TEST ORDERABLES F inal Result [facility] ([place]) [address] [phone] * (ABNORMAL) Comprehensive metabolic panel (11/09/2023 11:03 AM EST) Sodium 140 136 - 146 meq/L 11/09/2023 12:29 PM [facility] Potassium 3.9 3.5 - 5.1 meq/L 11/09/2023 12:29 PM [facility] Chloride 107 102 - 112 meq/L 11/09/2023 12:29 PM [facility] CO2 29 21 - 32 meq/L 11/09/2023 12:29 PM [facility] Calcium 9.0 8.4 - 10.1 mg/dL 11/09/2023 12:29 PM [facility] Glucose 86 74 - 106 mg/dL 11/09/2023 12:29 PM [facility] BUN 10 7 - 22 mg/dL 11/09/2023 12:29 PM [facility] Creatinine 0.76 0.55 - 1.02 mg/dL 11/09/2023 12:29 PM [facility] BUN/Creatinine 13 8 - 20 11/09/2023 12:29 PM [facility] Albumin 3.7 3.4 - 5.0 g/dL 11/09/2023 12:29 PM [facility] Alkaline Phosphatase 93 27 - 136 U/L 11/09/2023 12:29 PM [facility] ALT 36 13 - 56 U/L 11/09/2023 12:29 PM [facility] AST 27 5 - 37 U/L 11/09/2023 12:29 PM [facility] Total Bilirubin 0.5 0.2 - 1.2 mg/dL 11/09/2023 12:29 PM [facility] Protein, Total 7.2 6.4 - 8.2 gm/dL 11/09/2023 12:29 PM [facility] Anion Gap 8(L) 9 - 20 11/09/2023 12:29 PM [facility] A/G Ratio 1.1 1.1 - 2.5 11/09/2023 12:29 PM [facility] Globulin 3.5 1.5 - 4.5 g/dL 11/09/2023 12:29 PM [facility] Osmolality Calc 277.7 12:29 PM [facility] eGFR (mL/min/1.73m2) >60 >=60 mL/min/1.7 3m2 11/09/2023 12:29 PM [facility] Comment:ESTIMATED GFR IS NOT ACCURATE CREATININE CLEARANCE IN PREDICTING GLOMERULAR FILTRATION RATE. ESTIMATED GFR IS NOT APPLICABLE FOR DIALYSIS PATIENTS. Blood Venipuncture / Unknown 11/09/2023 11:03 AM EST 11/09/2023 11:58 AM EST us Dimas Arteaga MD LAB BLOOD ORDERABLES Final Resu lt [facility] [address] [phone] * (ABNORMAL) CBC - Hemogram (SJ-BKR) (11/09/2023 11:03 AM EST) WBC 10.6(H) 4.5 - 10.5 K/??L 11/09/2023 12:07 PM [facility] RBC 4.79 3.93 - 5.22 M/??L 11/09/2023 12:07 PM [facility] Hemoglobin 13.7 11.2 - 15.7 GM/DL 11/09/2023 12:07 PM [facility] Hematocrit 41.5 34.1 - 44.9 % 11/09/2023 12:07 PM [facility] MCV 87 79 - 95 fL 11/09/2023 12:07 PM [facility] MCH 28.6 25.6 - 32.2 pg 11/09/2023 12:07 PM [facility] MCHC 33.0 32.2 - 36.5 GM/DL 11/09/2023 12:07 PM [facility] RDW 12.7 11.7 - 14.9 % 11/09/2023 12:07 PM [facility] Platelets 428(H) 163 - 369 K/CU MM 11/09/2023 12:07 PM [facility] MPV 9.8 9.4 - 12.4 fL 11/09/2023 12:07 PM [facility] Blood Venipuncture / Unknown 11/09/2023 11:03 AM EST 11/09/2023 11:58 AM EST us Rob Munguia MD LAB BLOOD ORDERABLES Final Resul t [facility] [address] [phone] * ECG 12 lead (11/09/2023 9:55 AM EST) VENTRICULAR RATE EKG/MIN 74 BPM GE MUSE ATRIAL RATE (MCT) 74 BPM GE MUSE MN Interval 146 ms GE MUSE QRS-INTERVAL (MSEC) 72 ms GE MUSE QT Interval 392 ms GE MUSE QTC Interval 435 ms GE MUSE P [place] 32 degrees GE MUSE R AXIS (MCT) 5 degrees GE MUSE T Wave [place] 26 degrees GE MUSE [place] Diagnosis Normal sinus rhythm with sinus arrhythmia Normal ECG No previous ECGs available Confirmed by Tyrone ANDRADE, LORETTA ([id number]), department editor TONNY MARIE ([id number]) on 11/09/2023 2:49:22 PM GE MUSE 11/09/2023 9:55 AM EST 11/09/2023 2:49 PM EST us Rob Munguia MD ECG ORDERABLES Final Result GE MUSE documented in this encounter Visit Diagnoses Diagnosis Preop testing- Primary Unspecified pre-operative examination PONV (postoperative nausea and vomiting) Nausea with vomiting Preop testing Unspecified pre-operative examination documented in this encounter Care Teams Head Of Partner Development Relationship Specialty Start Date End Date Ata Lyons MD [address] [place] [address] [place] [address] PCP - General Adolescent Medicine 11/09/23 documented as of this encounter
--- OUTSIDE RECORDS SUMMARY | 2024-10-31 15:48 | XMS_ITS | Encounter Summary ---
Author Organization [employer] (formerly [employer]) In iatives Address [address] [place] [address] Care Team Providers Care Ceramic Sprayer Name Role Phone Ata Lyons MD Primary Care Provider [phone] Reason for Visit * Auth/Cert (Routine) Specialty Diagnoses / Procedures Referred By Roberto t Referred To Contact Diagnoses Colonic stricture (HCC) COLON STRICTURE Procedures HI LAP,SURG,COLECTOMY,W/ANAST ROBOTIC LAPAROSCOPY,LOW ANTERIOR RESECTION [facility] Operating Room [address] [place] [address] Phone: tel: fax: [facility] Operating Room [address] [place] [address] Phone: tel: fax: Referral ID Status Reason Start Date Expiration Date Visits Re quested Visits Authorized [id number] 1 1 Encounter Details Date Type Department Care Team (Late st Contact Info) Description 11/16/2023 12:16 PM EST - 11/16/2023 3:13 PM EST Surgery [facility] Operating Room [address] [place] [address] Monty Marsh MD [address] [facility] [address] [place] [address] (ROBOTIC LOW ANTERIOR RESECTION) Social History Tobacco Use Types Packs/Day Years [...] place to sleep or slept in a care home (including now)? 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 Gender Identity Not on file Sexual Orientation Not on file documented as of this encounter Last Filed Vital Signs Vital Sign Reading Time Taken Comments Blood Pressure 102/66 11/16/2023 11:24 AM EST Pulse 94 11/16/2023 11:24 AM EST Temperature - - Respiratory Rate 20 11/16/2023 11:24 AM EST Oxygen Saturation 100% 11/16/2023 11:24 AM EST Inhaled Oxygen Concentration - - Weight 100.2 kg (221 lb) 11/16/2023 11:39 AM EST Height - - Body Mass Index 39.75 11/16/2023 6:03 PM EST documented in this encounter Discharge Summaries * German Proctor MD - 11/18/2023 12:31 PM EST Patient Name: Aditya Ruff : 1980 Date of Admission: 11/16/2023 Date of Discharge: 11/18/2023 12:31 PM Primary Care Physician: Ata Lyons MD Consultations: Treatment Team: Consulting Physician: German Proctor MD [place] rectal Surgery Dr. Marsh Discharge Diagnoses: Colonic [...] Your Medications These medications were sent to [facility] [address] [place] [address] [address] [place] [address] ?? famotidine 20 MG tablet ?? oxyCODONE-acetaminophen [...] [address] [place] [address] [facility] [address] Next Steps: Follow up in 2 week(s) Monty Marsh MD Specialty: Colon and Rectal Surgery [address] [facility] [address] [facility] [address] Next Steps: Follow up on 11/22/2023 Instructions: Please call to schedule a follow up on 11/22 Time Spent: 45 minutes Electronically signed by GERMAN PROCTOR MD, 11/19/23, 11:52 AM EST E BUILDER documented in this encounter Discharge Instructions * Attachments The following attachments cannot be sent through Care Everywhere. * Famotidine Tablets (Central African) * Oxycodone Capsules or Tablets ([place]) * Minimally Invasive Small Bowel Resection Care After ([place] African) documented in this encounter Medications at Time [...] a prescription of Percocet to patient's pharmacy, [facility]. 4. Patient to follow-up with me this coming in the office. E BUILDER * Monty Marsh MD - 11/17/2023 9:17 [...] prescription of Percocet to the patient's pharmacy. E BUILDER documented in this encounter H&P Notes * Fabiana De La Torre, SUPERVISOR WET ROOM - 11/16/2023 10:05 AM EST HPI History Of Present Illness Aditya Ruff is a 43 y.o. female presenting with [...] RATE (MCT) 11/09/2023 74 BPM Final ??? HI Interval 11/09/2023 146 ms Final ??? QRS-INTERVAL (MSEC) 11/09/2023 72 ms Final ??? QT Interval 11/09/2023 392 ms Final ??? QTC Interval 11/09/2023 435 ms Final ??? P [place] 11/09/2023 32 degrees Final ??? R AXIS (MCT) 11/09/2023 5 degrees Final ??? T Wave [place] 11/09/2023 26 degrees Final ??? Welch Diagnosis 11/09/2023 Final Value:Normal sinus rhythm with sinus arrhythmia Normal ECG No previous ECGs available Confirmed by Tyrone ANDRADE, LORETTA ([id number]), publishing editor TONNY MARIE ([id number]) on 11/09/2023 2:49:22 [...] Marsh MD at 11/16/2023 10:57 AM EST E BUILDER E BUILDER documented in this encounter Consult Notes * German Proctor MD - 11/17/2023 12:23 PM EST Images from the original note were not included. HOSPITALIST HISTORY AND PHYSICAL Patient: Aditya Ruff Date: 11/17/2023 PCP: Ata Lyons MD Date [...] PO at 48 hours post op consult Sharepoint Application Architect ??? Up with Assistance ??? Activity (specify) [...] Signed: GERMAN PROCTOR MD 11/17/2023, 12:23 PM E BUILDER documented in this encounter Miscellaneous Notes * [...] interventions as needed. Outcome: Adequate for Discharge E BUILDER * Plan of Care - Elisa Dubois [...] plans and interventions as needed. Outcome: Progressing E BUILDER * Op Note - Monty Marsh MD - 11/16/2023 3:02 PM EST Date: 11/16/2023 Procedures: Procedure(s): Robotic low anterior resection IN 0900, 2.5HRS(A), 3HRS(R), PASS-TBS, KRYSTYNA PA REQUESTED Diagnosis: Pre-Op Diagnosis Codes: * Colonic stricture (HCC) [K56.699] Post-Op Diagnosis Codes: * Colonic stricture (HCC) [K56.699] Indications: Aditya Ruff is an 43 y.o. female presenting with [...] to 10 Trendelenburg and 6 degrees of kolnf-cand-epgr. At this point I can see the [...] closed with a #1 PDS in interrupted tkhalu-iq-wfaxm fashion. Allwounds were irrigated and closed with [...] Specimens: Specimens (From admission, onward) Start Ordered 11/16/231248 Tissue Exam RELEASE UPON ORDERING 11/16/239 Complications: None * No complications entered in OR log * Disposition: PACU - hemodynamically stable. Condition: stable Attending Attestation: I was present and scrubbed for the entire procedure. E BUILDER documented in this encounter Plan of Treatment [...] Routine 11/17/2023 4:56 AM EST TISSUE EXAM [facility] AP Routine 11/16/2023 12:49 PM EST Colonic stricture (HCC) HI LAP,SURG,COLECTOMY ,W/ANAST 11/16/2023 11:49 AM EST Colonic stricture (HCC) ISTAT GLUCOSE POC Routine 11/16/2023 11: 43 AM EST POCT-POTASSIUM Routine 11/16/2023 11:43 AM EST TYPE AND SCREEN ([place] BKR) STAT 11/16/2023 11:42 AM EST EKG-SCANNED 11/16/2023 documented in this encounter Results * (ABNORMAL) Magnesium (11/18/2023 5:59 AM EST) Magnesium 2.5(H) 1.5 - 2.4 mg/dL 11/18/2023 7:05 AM [facility] Blood Venipuncture / Unknown 11/18/2023 5:59 AM EST 11/18/2023 6:41 AM EST us German Proctor MD LAB BLOOD ORDERABLES Final Resu lt [facility] [address] [phone] * (ABNORMAL) CBC with automated diff (11/18/2023 5:59 AM EST) WBC 16.4(H) 4.5 - 10.5 K/??L 11/18/2023 6:54 AM [facility] RBC 4.46 3.93 - 5.22 M/??L 11/18/2023 6:54 AM [facility] Hemoglobin 12.9 11.2 - 15.7 GM/DL 11/18/2023 6:54 AM [facility] Hematocrit 39.0 34.1 - 44.9 % 11/18/2023 6:54 AM [facility] MCV 87 79 - 95 fL 11/18/2023 6:54 AM [facility] MCH 28.9 25.6 - 32.2 pg 11/18/2023 6:54 AM [facility] MCHC 33.1 32.2 - 36.5 GM/DL 11/18/2023 6:54 AM [facility] RDW 13.1 11.7 - 14.9 % 11/18/2023 6:54 AM [facility] Platelets 358 163 - 369 K/CU MM 11/18/2023 6:54 AM [facility] MPV 9.4 9.4 - 12.4 fL 11/18/2023 6:54 AM [facility] % Neutros 67 34 - 71 % 11/18/2023 6:54 AM [facility] % Lymphs 23 19 - 53 % 11/18/2023 6:54 AM [facility] % Monos 9 3 - 9 % 11/18/2023 6:54 AM [facility] % Eos 1 0 - 1 % 11/18/2023 6:54 AM [facility] % Baso 0 0 - 2 % 11/18/2023 6:54 AM [facility] NRBC Absolute 0.00 0 - 0.12 K/ul 11/18/2023 6:54 AM [facility] # Neutros 11.00(H) 1.56 - 6.13 K/??L 11/18/2023 6:54 AM [facility] # Lymphs 3.70(H) 1.00 - 3.50 K/??L 11/18/2023 6:54 AM [facility] # Monos 1.46(H) 0.16 - 1.00 K/??L 11/18/2023 6:54 AM [facility] # Eos 0.10 0.00 - 0.80 K/??L 11/18/2023 6:54 AM [facility] # Baso 0.07 0.00 - 0.20 K/??L 11/18/2023 6:54 AM [facility] Immature Granulocytes-Re lative 0.40 0.00 - 0.60 % 11/18/2023 6:54 AM [facility] # IG 0.07(H) 0.00 - 0.05 K/uL 11/18/2023 6:54 AM [facility] Blood Venipuncture / Unknown 11/18/2023 5:59 AM EST 11/18/2023 6:41 AM EST Narrative [facility] - 11/18/2023 6:54 AM EST When [...] MD LAB BLOOD ORDERABLES Final Resu lt [facility] [address] [phone] * (ABNORMAL) Basic Metabolic Panel (11/18/2023 5:59 AM EST) Sodium 139 136 - 146 meq/L 11/18/2023 7:05 AM [facility] Potassium 3.7 3.5 - 5.1 meq/L 11/18/2023 7:05 AM [facility] Chloride 111 102 - 112 meq/L 11/18/2023 7:05 AM [facility] CO2 24 21 - 32 meq/L 11/18/2023 7:05 AM [facility] Anion Gap 8(L) 9 - 20 11/18/2023 7:05 AM [facility] BUN 8 7 - 22 mg/dL 11/18/2023 7:05 AM [facility] Creatinine 0.69 0.55 - 1.02 mg/dL 11/18/2023 7:05 AM [facility] BUN/Creatinine 12 8 - 20 11/18/2023 7:05 AM [facility] Glucose 98 74 - 106 mg/dL 11/18/2023 7:05 AM [facility] Calcium 8.5 8.4 - 10.1 mg/dL 11/18/2023 7:05 AM [facility] Osmolality Calc 275.8 7:05 AM [facility] eGFR (mL/min/1.73m2) >60 >=60 mL/min/1.7 3m2 11/18/2023 7:05 AM [facility] Comment:eGFR of <60 suggests chronic kidney disease if found over a 3 month period of time. eGFR <15 indicates renal failure. Blood Venipuncture / Unknown 11/18/2023 5:59 AM EST 11/18/2023 6:41 AM EST German Proctor MD LAB BLOOD ORDERABLES Final Resu lt [facility] [address] [phone] * (ABNORMAL) Basic Metabolic Panel (11/17/2023 4:56 AM EST) Sodium 133(L) 136 - 146 meq/L 11/17/2023 6:48 AM EST [facility] Potassium 4.2 3.5 - 5.1 meq/L 11/17/2023 6:48 AM EST [facility] Chloride 106 102 - 112 meq/L 11/17/2023 6:48 AM [facility] CO2 24 21 - 32 meq/L 11/17/2023 6:48 AM [facility] Anion Gap 7(L) 9 - 20 11/17/2023 6:48 AM [facility] BUN 7 7 - 22 mg/dL 11/17/2023 6:48 AM [facility] Creatinine 0.67 0.55 - 1.02 mg/dL 11/17/2023 6:48 AM [facility] BUN/Creatinine 10 8 - 20 11/17/2023 6:48 AM [facility] Glucose 116(H) 74 - 106 mg/dL 11/17/2023 6:48 AM [facility] Calcium 9.0 8.4 - 10.1 mg/dL 11/17/2023 6:48 AM [facility] Osmolality Calc 265.3 6:48 AM [facility] eGFR (mL/min/1.73m2) >60 >=60 mL/min/1.7 3m2 11/17/2023 6:48 AM [facility] Comment:eGFR of <60 suggests chronic kidney disease if found over a 3 month period of time. eGFR <15 indicates renal failure. Blood Venipuncture / Unknown 11/17/2023 4:56 AM EST 11/17/2023 6:12 AM EST us Monty Marsh MD LAB BLOOD ORDERABLES Final Resul t [facility] [address] [phone] * (ABNORMAL) CBC (Hemogram only) (11/17/2023 4:56 AM EST) WBC 26.0(H) 4.5 - 10.5 K/??L 11/17/2023 6:16 AM EST [facility] RBC 5.09 3.93 - 5.22 M/??L 11/17/2023 6:16 AM EST [facility] Hemoglobin 14.9 11.2 - 15.7 GM/DL 11/17/2023 6:16 AM [facility] Hematocrit 44.5 34.1 - 44.9 % 11/17/2023 6:16 AM [facility] MCV 87 79 - 95 fL 11/17/2023 6:16 AM [facility] MCH 29.3 25.6 - 32.2 pg 11/17/2023 6:16 AM [facility] MCHC 33.5 32.2 - 36.5 GM/DL 11/17/2023 6:16 AM [facility] RDW 12.6 11.7 - 14.9 % 11/17/2023 6:16 AM [facility] Platelets 397(H) 163 - 369 K/CU MM 11/17/2023 6:16 AM [facility] MPV 9.7 9.4 - 12.4 fL 11/17/2023 6:16 AM [facility] Blood Venipuncture / Unknown 11/17/2023 4:56 AM EST 11/17/2023 6:11 AM EST us Monty Marsh MD LAB BLOOD ORDERABLES Final Resul t [facility] 1 [place] [address], [facility] [phone] * Tissue Exam (11/16/2023 12:49 PM EST) AP RESULT See Note: [facility] Comment: [facility] [address] ?[place], [place] ??[address] or [phone] Lorenzo Pendleton M.D., Milking Machine Operator PATIENT NAME ? LABORATORY NO. [id number] ??REDDY, ADITYA GAVIOTA. ?[id number] ? AGE ? SEX ??SSN ? CLIENT REF # [facility] ?43 ?1980 ??F ?[id number] 1 [facility] ?REQUESTING M.D. ? ATTENDING M.D. ? [place] [address] ?MONTY MARSH DATE COLLECTED ?DATE RECEIVED ?DATE [...] Professional interpretation rendered by Ivy Waldrop M.D., Rivas.C.A.P. at [employer], [place], [address] [place] [address]. GROSS DESCRIPTION: Specimen received in formalin labeled [...] or necrotic appearing areas are grossly identified. ??Quality Assurance Tech sections are submitted in 10 cassettes as follows: A1-apparent anastomotic donuts A2-margin nearest strictured area A3- opposite margin A4-mesenteric margin shave nearest strictured area A5-A9- sections of bowel with strictured area in A5-A6 and diverticula in A7-A9, A10- lymph nodes. ??JTM/RLL REVIEWED, DIAGNOSED AND ELECTRONICALLY SIGNED BY: Ivy Waldrop M.D., F.C.A.P. CPT CODES: ??59300, [id number], [id number] Tissue RECTOSIGMOID STRUCTURE / Unknown 11/16/2023 12:49 PM EST us Monty Marsh MD PATHOLOGY/CYTOLOGY ORDERABLES Fi nal Result Performing Organization Address City/[facility] Co de Phone Number [facility] [address] * POC-Potassium (11/16/2023 11:43 AM EST) POC Potassium 3.7 3.5 - 4.9 mmol/L 11/16/2023 11:52 AM EST [facility] Blood 11/16/2023 11:4 3 AM EST 11/16/2023 11:52 AM EST Narrative [facility] - 11/16/2023 11:52 AM EST Medical Device ID is - [id number] us Monty Marsh MD POINT OF CARE TEST ORDERABLES Fi nal Result Performing Organization Address [facility] Co de Phone Number [facility] [address] [phone] * Glucose, iSTAT Meter (11/16/2023 11:43 AM EST) POC-GLUCOSE 103 70 - 105 mg/dL 11/16/2023 11:52 AM EST [facility] Blood 11/16/2023 11:4 3 AM EST 11/16/2023 11:52 AM EST Narrative [facility] - 11/16/2023 11:52 AM EST Medical Device ID is - [id number] us Monty Marsh MD POINT OF CARE TEST ORDERABLES Fi nal Result Performing Organization Address [facility] Co de Phone Number [facility] [address] [phone] * Type and Screen (11/16/2023 11:42 AM EST) ABO/Rh O Positive 11/16/2023 9:50 AM EST [facility] ([place]) Antibody Screen Negative 11/16/2023 9:50 AM EST [facility] BLOOD [facility] ([place]) HISTCHK HIST CHECK PERFORMED 11/16/2023 9:50 AM EST [facility] ([place]) Blood Venipuncture / Unknown 11/16/2023 11:42 AM EST 11/16/2023 12:04 PM EST Monty Marsh MD [facility] BLOOD BANK TEST ORDERABLES F inal Result [facility] ([place]) 1 [facility] [place] [address], [facility] [phone] * EKG-SCANNED (11/16/2023) Narrative 11/16/2023 Ordered by an unspecified provider. us Default Scanning Provider SCAN ORDERS Final Result documented in this encounter Visit Diagnoses Diagnosis Colonic stricture (HCC) Unspecified intestinal obstruction Colonic stricture (HCC) Unspecified [...] Given 11/17/2023 12:58 PM EST 20 mg heparin injection 5,000 Units 5,000 Units Every [...] 10:51 AM EST 1,000 mLs 100 mL/hr metoprolol succinate (TOPROL-XL) 24 hr tablet 25 mg 25 mg Every Night, oral, First dose on 11/17/23 at 2100, Hold for systolic BP < 90 mmHg or for HR < 50 BPM Do Not Crush or Chew (Tablet may be split) Given 11/17/2023 8:38 PM EST 25 mg montelukast (SINGULAIR) tablet 10 mg 10 [...] Given 11/16/2023 8:18 PM EST 5 mg documented in this encounter Active and [...] Degroot RN) 0009 (Given - Provider: Narendra Torres RN)0533 (Given - Provider: Narendra Torres RN)1258 (Given - Provider: Paula Degroot RN)1753 (Given [...] Torres RN) 904 (Given - Provider: Paula Degroot, MARVA)2036 (Given - Provider: Ralph Harmon, MARVA) 0843 (Given - Provider: Narendra Torres, MARVA) ertapenem (INVanz) 1 g in sodium chloride [...] less than 50 mL/min or on CRRT. 125 (Given - Provider: Paula Degroot RN)2036 (Given [...] 1011 (Given - Provider: Cherelle Fields RN) heparin injection 5,000 Units 5,000 Units Every 12 hours scheduled, subcutaneous, First dose on Sun11/16/23 at 2100, Phase II/On Unit 2018 (Given - Provider: Narendra Torres RN) 09 (Given - Provider: Paula Degroot RN)2036 (Given - Provider: Ralph Harmon, MARVA) 0843 (Given - Provider: Narendra Torres RN) ketorolac (TORADOL) injection 15 mg(Linked Group 1) 15 mg Every 6 hours interval, intravenous, First dose on Sun11/16/23 at 1830, For 5 days, 1st line analgesic, Phase II/On Unit 1826 (Given - Provider: Paula Degroot RN) 0010 (Given - Provider: Narendra Torres RN)0530 (Given - Provider: Narendra Torres RN)1258 (Given - Provider: Paula Degroot, MARVA)1754 (Given - Provider: Paula Degroot RN) 0125 [...] oral, First dose on 11/17/23 at 2100 2037 (Given - Provider: Ralph Harmon RN) pregabalin [...] As needed, oral, muscle spasms, Starting on 11/17/23 at 1224 diazePAM (VALIUM) injection 2.5 mg 2.5 mg Every 6 hours PRN, intravenous, Abdominal Spasms, Starting on Sun11/16/23 at 1812, Phase II/On Unit fentaNYL (SUBLIMAZE) injection 25 mcg (CANCELED) 25 mcg Every 5 min PRN, intravenous, severe pain (7-10), Starting on Sun11/16/23 at 1609, Maximum cumulative dose 100 mcg, PACU 1651 (Given - Provider: Olga Lidia Garibay, RN) ondansetron (ZOFRAN-ODT) disintegrating tablet 4 mg(Linked [...] Unit documented in this encounter Care Teams Ceramic Sprayer Relationship Specialty Start Date End Date Ata Lyons MD [address] [place] [address] [place] [address] PCP - General Adolescent Medicine 11/09/23 documented as of this encounter
--- OUTSIDE RECORDS SUMMARY | 2024-10-31 15:48 | XMS_ITS | Encounter Summary ---
Author Organization [employer] Address [address] [place] [address] Care Team Providers Care Specialty Person Name Role Phone Ata Lyons MD Primary Care Provider [phone] Reason for Visit * Auth/Cert (Routine) Specialty Diagnoses / Procedures Referred By Contac t Referred To Contact Diagnoses Colonic stricture (HCC) COLON STRICTURE Procedures IL LAP,SURG,COLECTOMY,W/ANAST ROBOTIC LAPAROSCOPY,LOW ANTERIOR RESECTION [facility] Operating Room [address] [place] [address] Phone: tel: fax: [facility] Operating Room [address] [place] [address] Phone: tel: fax: Referral ID Status Reason Start Date Expiration Date Visits Re quested Visits Authorized [id number] 1 1 Encounter Details Date Type Department Care Team (Late st Contact Info) Description 11/16/2023 11:49 AM EST Anesthesia Event [facility] Operating Room [address] [place] [address] Sachin Pires MD [address], [place] [phone] Rafat Coleman CRNA [address], [place] [phone] Anesthesia Record Procedure Summary Procedure Name Responsible [...] acknowledgement of understanding. 1513 An Stop Meds Name Total propofol (DIPRIVAN) injection 10 mg/mL b olus 210 mg propofol (DIPRIVAN) infusion 10 mg/mL 26 7.75 mg Lidocaine (UTSVRE-U-HGJ KIT) laryngotrac heal topical soln 4% 4 mL rocuronium (ZEMURON) 100 mg/10 mL inject ion 80 mg fentaNYL (SUBLIMAZE) 50 mcg/mL injection 100 mcg phenylephrine (ALIYAH-SYNEPHRINE) injection 80 mcg phenylephrine (ALIYAH-SYNEPHRIN E) 20 mg in sodium chloride 0.9% (NS) 250 mL infusion 3,260 mcg dexamethasone (DECADRON) injection 4 mg/ mL 8 mg ondansetron (ZOFRAN) injection vial 4 mg ertapenem (INVanz) 1 g in sodium chlorid e 0.9 % (NS) MBP 50 mL IVPB 1 g dexmedetomidine (PRECEDEX) injection 100 mcg/mL 45 mcg lidocaine (PF) injection 10 mg/mL (1%) 3 mL magnesium sulfate injection 2 g scopolamine (TRANSDERM-SCOP) patch 1 mg/ 72 hr 1 patch indocyanine green (IC-GREEN) injection 2 5 mg 25 mg sugammadex (BRIDION) injection 200 mg lactated ringers (LR) infusion 1,400 mL albumin human bottle 5% 250 mL * Agents Name O2 N2O Air SEVOFLURANE * Blood No blood administrations on file. [...] Tube Placement Date: 10/27 01/18; Placement Time: 1211; Inserted by: Vero Coleman FISH GRADER; Tube Type: Orogastric; Tube Size: 18 Fr.; Removal Date: 11/16/23; Removal Time: 183311/16/23 121 by Rafat Coleman CRNA 11/16/231833 by Elisa Maier RN documented in this [...] place to sleep or slept in a intermediate (including now)? 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 Gender Identity Not on file Sexual Orientation Not on file documented as of this encounter OR Notes * Anesthesia Postprocedure Evaluation - Jeanie Dong CRNA - 11/16/2023 3:21 PM EST Patient: Marly Ruff Procedure Summary Date: 11/16/23 Room / Location: [facility] Anesthesia Start: 1149 Anesthesia Stop: 1513 Procedure: (ROBOTIC LOW ANTERIOR RESECTION) (Abdomen) Diagnosis: Colonic stricture (HCC) (COLON STRICTURE) Surgeons: Rob Munguia MD Responsible Provider: Sachin Pires MD Anesthesia Type: general ASA Status: 2 Anesthesia Type: general Vitals Value Taken Time BP 100/50 11/16/23 1518 Temp 98.3 11/16/23 1521 Pulse 83 11/16/23 1520 Resp 10 11/16/23 1520 SpO2 95 % 11/16/23 1520 Vitals shown include unvalidated device data. Wt 100.2 kg (221 lb) BMI 39.78 kg/m?? Anesthesia Post Evaluation Patient location during evaluation: PACU Patient participation: waiting for patient participation Level of consciousness: awake and sleepy but conscious Pain score: 0 Pain management: adequate Multimodal analgesia pain management approach Airway patency: patent Cardiovascular status: stable Respiratory status: face mask and nasal airway Hydration status: stable Color: [place]ley Activity: Unable to assess due to sedation Inotropes/Vasopressors: N/A No notable events documented. Jeanie Dong CRNA 11/16/2023 3:21 PM EST IFIER IFIER * Anesthesia Procedure Notes - Rafat Coleman CRNA - 11/16/2023 12:38 PM EST Associated Order(s): Intubation Intubation Authorized by: Cem Gregory MD Performed by: Rafat Coleman CRNA Date/Time: 11/16/2023 12:07 PM Urgency: elective Indications and Patient Condition Indications for airway management: anesthesia Spontaneous Ventilation: absent Sedation level: general anesthesia Preoxygenated: yes Patient position: sniffing Mask difficulty assessment: 1 - vent by mask Final Airway Details Final airway type: endotracheal airway Endotracheal tube type: ETT Cuffed: yes Successful intubation technique: direct laryngoscopy Facilitating devices/methods: intubating stylet and anterior pressure/BURP Endotracheal tube insertion site: oral Blade: Ronal Blade size: #3 ETT size (mm): 7.5 Cormack-Lehane Classification: grade IIb - view of arytenoids or posterior of glottis only Placement verified by: chest auscultation and capnometry Cuff volume (mL): 8 Measured from: lips ETT to lips (cm): 20 Number of attempts at approach: 1 Additional Comments Atraumatic Intubation. Lips, gums, and dentition as preop. Bilateral BS Verified IFIER * Anesthesia Procedure Notes - Cem Gregory MD - 11/16/2023 11:27 AM EST Associated Order(s): Peripheral Nerve Block Peripheral Nerve Block Authorized by: Cem Gregory MD Performed by: Cem Gregory MD Patient location during procedure: pre-op End time: 11/16/2023 11:28 AM Reason for block: at surgeon's request and post-op pain management Preanesthetic Checklist Completed: patient identified, IV checked, site marked, risks and benefits discussed, surgical consent, monitors and equipment checked, pre-op evaluation and timeout performed Peripheral Block Patient position: supine Prep: ChloraPrep Patient monitoring: heart rate, information security director and continuous pulse ox Block type: TAP Laterality: bilateral Injection technique: single-shot Guidance: ultrasound guided Local infiltration: lidocaine Needle Needle type: short-bevel Needle gauge: 20 G Needle length: 10 cm Needle localization: ultrasound guidance Test dose: negative Assessment Injection assessment: negative aspiration for heme, no paresthesia on injection, incremental injection and local visualized surrounding nerve on ultrasound Paresthesia pain: none Heart rate change: no Slow fractionated injection: yes Additional Notes 30ml bilateral taps mix IFIER * Anesthesia Preprocedure Evaluation - Dimas Arteaga MD - 11/09/2023 11:13 AM EST ANESTHESIA PREOPERATIVE EVALUATION Patient: Marly Ruff Date/Time: 11/16/23 1332 Procedure: (ROBOTIC LOW ANTERIOR RESECTION) - IN, 2.5HRS(A), 3HRS(R), PASS-TBS, JEANCARLOS [facility]EN[place]OD REQUESTED Location: [facility] OR [facility] Surgeons: Rob Munguia MD Vitals: 11/09/23 1037 BP: 121/85 Pulse: 78 Resp: 16 Temp: 97.1 ??F (36.2 ??C) TempSrc: Skin SpO2: 100% Weight: 100.2 kg (221 lb) Height: 1.588 m (5' 2.5 ) Allergies Allergen Reactions ??? Chlorpheniramine Other reaction(s): throat swelling ??? Phenylephrine Other reaction(s): throat swelling ??? Pseudoephedrine Other reaction(s): throat swelling ??? Pyrilamine Other reaction(s): thraot swelling ??? Scopolamine Other reaction(s): throat swelling ??? Erythromycin Base Other reaction(s): Other Current Outpatient Medications Medication Instructions ??? cetirizine [...] ??? spironolactone (ALDACTONE) 50 mg, Oral, Daily Past Medical History: Diagnosis Date ??? C. difficile colitis ??? Hypertension ??? Kidney stone ??? PONV (postoperative nausea and vomiting) ??? Seasonal allergies Obesity Past Surgical History: Procedure Laterality Date ??? SECTION ??? HYSTERECTOMY ??? TONSILLECTOMY Social History Tobacco Use ??? Smoking status: Never ??? Smokeless tobacco: Never Substance Use Topics ??? Drug use: Never EKG: NSR, sinus arrhythmia No data recorded Physical Exam Airway Mallampati: III TM distance: <3 FB Neck ROM: full Cardiovascular Rhythm: regular Dental Pulmonary Breath sounds clear to auscultation Abdominal (+) obese Anesthesia Plan ASA 2 general (Scopolamine patch B TAP) The patient is not a current smoker. intravenous induction Postoperative administration of opioids is intended. Anesthetic plan and risks discussed with patient. Plan discussed with FISH GRADER. IFIER documented in this encounter Plan of Treatment Not on file documented as of this encounter Procedures Procedure Name Priority Date/Time Associated Diagnosis Comments ANESTHESIA INTUBATION Routine 11/16/2023 12:07 PM EST HC TAP BLOCK BILATERAL (BLK RM) Routine 11/16/2023 11:27 AM EST documented in this encounter Results * AN SINGLE LUMEN INTUBATION (11/16/2023 12:07 PM EST) Narrative Rafat Coleman CRNA - 11/16/2023 12:07 PM EST Rafat Coleman CRNA ? 11/16/2023 12:39 PM Intubation Authorized by: Cem Gregory MD ?? Performed by: Rafat Coleman CRNA Date/Time: 11/16/2023 12:07 PM Urgency: elective Indications and Patient Condition Indications for airway management: anesthesia Spontaneous Ventilation: absent Sedation level: general anesthesia Preoxygenated: yes Patient position: sniffing Mask difficulty assessment: 1 - vent by mask Final Airway Details Final airway type: endotracheal airway Endotracheal tube type: ETT Cuffed: yes Successful intubation technique: direct laryngoscopy Facilitating devices/methods: intubating stylet and anterior pressure/BURP Endotracheal tube insertion site: oral Blade: Rnoal Blade size: #3 ETT size (mm): 7.5 Cormack-Lehane Classification: grade IIb - view of arytenoids or posterior of glottis only Placement verified by: chest auscultation and capnometry Cuff volume (mL): 8 Measured from: lips ETT to lips (cm): 20 Number of attempts at approach: 1 Additional Comments Atraumatic Intubation. Lips, gums, and dentition as preop. Bilateral BS Verified us Cem Gregory MD ANESTHESIA ORDERABLES Final Resu lt * HC TAP BLOCK BILATERAL (VITO RM) (11/16/2023 11:27 AM EST) Cem Sharp MD - 11/16/2023 11:27 AM EST Cem Gregory MD ? 11/16/2023 11:29 AM Peripheral Nerve Block Authorized by: Cem Gregory MD ?? Performed by: Cem Gregory MD Patient location during procedure: pre-op End time: 11/16/2023 11:28 AM Reason for block: at surgeon's request and post-op pain management Preanesthetic Checklist Completed: patient identified, IV checked, site marked, risks and benefits discussed, surgical consent, monitors and equipment checked, pre-op evaluation and timeout performed Peripheral Block Patient position: supine Prep: ChloraPrep Patient monitoring: heart rate, information security director and continuous pulse ox Block type: TAP Laterality: bilateral Injection technique: single-shot Guidance: ultrasound guided Local infiltration: lidocaine Needle Needle type: short-bevel Needle gauge: 20 G Needle length: 10 cm Needle localization: ultrasound guidance Test dose: negative Assessment Injection assessment: negative aspiration for heme, no paresthesia on injection, incremental injection and local visualized surrounding nerve on ultrasound Paresthesia pain: none Heart rate change: no Slow fractionated injection: yes Additional Notes 30ml bilateral taps mix us Cem Gregory MD ANESTHESIA ORDERABLES Final Resu lt documented in this encounter Visit Diagnoses Not on filedocumented in this encounter Administered Medications Inactive Administered Medications - up to 3 most recent administrations Medication Order MAR Action Action Date Dose Rate Site albumin human bottle 5% Continuous PRN, intravenous, Starting on Sun11/16/23 at 1434, Anesthesia Intra-op New Bag 11/16/2023 2:34 PM EST dexamethasone (DECADRON) injection As needed, intravenous, Starting on Sun11/16/23 at 1218, Anesthesia Intra-op Given 11/16/2023 12:18 PM EST 8 mg dexmedetomidine (PRECEDEX) injection As needed, intravenous, Starting on Sun11/16/23 at 1155, Anesthesia Intra-op Given 11/16/2023 2:45 PM EST 5 mcg Given 11/16/2023 2:29 PM EST 5 mcg Given 11/16/2023 2:14 PM EST 5 mcg ertapenem (INVanz) 1 g in sodium chloride 0.9 % (NS) MBP 50 mL IVPB 1 g Once, intravenous, at 100 mL/hr, On Sun11/16/23 at 1030, For 1 dose, Pre-op, Ertapenem is a RESTRICTED ANTIMICROBIAL; Select the criteria for why Ertapenem is required: A one-time dose prior to discharge within 24 hours for outpatient IV antibiotic therapy., Please choose an indication: Surgical Prophylaxis New Bag 11/16/2023 12:15 PM EST 1 g fentaNYL (SUBLIMAZE) injection As needed, intravenous, Starting on Sun11/16/23 at 1225, Anesthesia Intra-op Given 11/16/2023 12:25 PM EST 50 mc g Given 11/16/2023 12:00 PM EST 50 mcg indocyanine green (IC-GREEN) injection As needed, intravenous, Starting on Sun11/16/23 at 1406, Anesthesia Intra-op Given 11/16/2023 2:19 PM EST 12.5 m g Given 11/16/2023 2:06 PM EST 12.5 mg lactated ringers (LR) infusion 1,000 mL Continuous, intravenous, at 100 mL/hr, Starting on Sun11/16/23 at 1030 Restarted 11/16/2023 2:08 PM EST Continued by Anesthesia 11/16/2023 11:49 AM EST 100 mL/hr New Bag 11/16/2023 10:51 AM EST 1,000 mLs 100 mL/hr lidocaine (SKUHLC-O-PUM KIT) laryngotracheal topical soln As needed, mouth/throat, Starting on Sun11/16/23 at 1206, Anesthesia Intra-op Given 11/16/2023 12:06 PM EST 4 mLs lidocaine (PF) injection 10 mg/mL (1%) As needed, intravenous, Starting on Sun11/16/23 at 1200, Anesthesia Intra-op Given 11/16/2023 12:00 PM EST 3 mLs magnesium sulfate 4 mEq/mL (50 %) injection As needed, intravenous, Starting on Sun11/16/23 at 1248, Anesthesia Intra-op Given 11/16/2023 12:48 PM EST 2 g ondansetron PF (ZOFRAN) injection As needed, intravenous, Starting on Sun11/16/23 at 1453, Anesthesia Intra-op Given 11/16/2023 2:53 PM EST 4 mg phenylephrine (ALIYAH-SYNEPHRINE) 20 mg in sodium chloride 0.9% (NS) 250 mL infusion Continuous PRN, intravenous, Starting on Sun11/16/23 at 1200, Anesthesia Intra-op Rate/Dose Change 11/16/2023 2:01 PM EST 20 mcg/min 15 mL/hr Rate/Dose Change 11/16/2023 1:17 PM EST 15 mcg/min 11.25 m L/hr New Bag 11/16/2023 12:00 PM EST 20 mcg/min 15 mL/hr phenylephrine (ALIYAH-SYNEPHRINE) injection As needed, intravenous, Starting on Sun11/16/23 at 1200, Anesthesia Intra-op Given 11/16/2023 12:00 PM EST 80 mc g propofol (DIPRIVAN) injection 10 mg/mL bolus As needed, intravenous, Starting on Sun11/16/23 at 1200, Anesthesia Intra-op Given 11/16/2023 12:05 PM EST 30 mg Given 11/16/2023 12:03 PM EST 30 mg Given 11/16/2023 12:00 PM EST 150 mg propofol (DIPRIVAN) injection 10 mg/mL Continuous PRN, intravenous, Starting on Sun11/16/23 at 1240, Anesthesia Intra-op New Bag 11/16/2023 12:40 PM EST 25 mcg/kg/min 10.5 mL/hr rocuronium (ZEMURON) injection As needed, intravenous, Starting on Sun11/16/23 at 1201, Anesthesia Intra-op Given 11/16/2023 2:26 PM EST 10 mg Given 11/16/2023 1:57 PM EST 10 mg Given 11/16/2023 1:11 PM EST 10 mg scopolamine (TRANSDERM-SCOP) patch 1 mg/72 hr 1.5 mg Once (1 patch), transdermal (scopolamine), Administer over 72 Hours, On Sun11/16/23 at 1030, For 1 dose, Pre-op Given 11/16/2023 11:49 AM EST 1 patch sugammadex (BRIDION) IV Push As needed, intravenous, Starting on Sun11/16/23 at 1453, Anesthesia Intra-op Given 11/16/2023 2:53 PM EST 200 mg documented in this encounter Care Teams Specialty Person Relationship Specialty Start Date End Date Ata Lyons MD [address] [place] [id number] PCP - General Adolescent Medicine 11/09/23 documented as of this encounter
--- OUTSIDE RECORDS SUMMARY | 2024-10-31 15:48 | XMS_ITS | Encounter Summary ---
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
--- NOTE | 2024-10-31 15:50 | MM_ITS ---
PROCEDURE INFORMATION: Exam: MG Bilateral Screening 3D Mammography Exam date and time: 10/31/2024 3:39 PM Age: 44 years old Clinical indication: Screening examination TECHNIQUE: Imaging protocol: Bilateral Screening tomosynthesis and 2D mammography including computer-aided detection (CAD) when performed. COMPARISON: 1. MG MM DIG MAMM DX UNILAT LT CAD 10/31/2023 2:28 PM 2. MG MM DIG SCREENING MAMM BI W/CAD 10/16/2023 10:04 AM FINDINGS: MAMMOGRAPHY: Breast composition: There are scattered areas of fibroglandular density. Mass: None. Architectural distortion: None. Calcifications: No suspicious calcifications. Asymmetric density: None. Skin thickening: None. Axillary adenopathy: None. IMPRESSION: No mammographic evidence of malignancy. Annual screening is recommended unless otherwise clinically indicated. ASSESSMENT: BI-RADS Category 1: Negative.
== END 2024-10-31 23:59 | disposition home or self-care (01) ==
LOC: RAD 15:46
PROVIDERS: PCP Internal Medicine Adolescent Medicine; Visit Provider Nurse Practitioner Family
DX: Z12.31 Encounter for screening mammogram for malignant neoplasm of breast (principal)
CPT/HCPCS: 77063; 77067

== ENCOUNTER 2025-11-12 15:20 | Outpatient (CLI) | payer BC, SELFPAY ==
--- OUTSIDE RECORDS SUMMARY | 2025-09-18 10:40 | XMS_ITS | Encounter Summary ---
Author Organization [facility] Address 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 Uriel Patel MD [address] [place] [phone] Phone: tel: fax: [facility] [address] [place] [phone] Phone: tel: Referral ID Status Reason Start Date Expiration Date Visits Re quested Visits Authorized [id number] 1 1 Encounter Details Date Type Department Care Team (Latest Contact Info) Description 09/18/2025 11:40 AM EDT - 09/18/2025 2:30 PM EDT Hospital Encounter [facility] [address] [place] [phone] Uriel Patel MD [address] [place] [phone] Basal cell carcinoma (BCC) of eyelid, unspecified laterality [C44.111] (Primary Dx) Discharge Disposition: Home or Self Care Social History Tobacco Use Types Packs/Day Years Used Date Smoking Tobacco: Never Smokeless Tobacco: Never Tobacco Cessation:Counseling Given: Not Answered Alcohol Use Standard Drinks/Week Comments Never 0 (1 standard drink = 0.6 oz pur e alcohol) Comments No Sex and Gender Information Value Date Recorded Sex Assigned at Not on file Legal Sex Female 7:31 PM EDT Gender Identity Not on file Sexual Orientation Not on file documented as of this encounter Last Filed Vital Signs Vital Sign Reading Time Taken Comments Blood Pressure 116/71 09/18/2025 2:00 PM EDT Pulse 58 09/18/2025 1:50 PM EDT Temperature 36.1 C (97 F) 09/18/2025 1:50 PM EDT Respiratory Rate 16 09/18/2025 1:50 PM EDT Oxygen Saturation 100% 09/18/2025 2:00 PM EDT Inhaled Oxygen Concentration - - Weight 91.8 kg (202 lb 6.1 oz) 09/18/2025 12:10 PM EDT Height 160 cm (5' 3 ) 09/18/2025 12:10 PM EDT Body Mass Index 35.85 09/18/2025 12:10 PM EDT documented in this encounter Functional Status * Question Answer Date of Assessment Author Precautions Fall risk 09/18/2025 1:50 PM EDT Dixie Hernandez RN * Calculated C-SSRS Risk Score (Lifetime/Recent) Answer Date of Assessment Author No Risk Indicated 09/18/2025 12:51 PM EDT Helen, Janine Flowers RN * Question Answer Date of Assessment Author 1. Wish to be (Past 1 Month) No 12:51 PM EDT China Cervantes RN 2. Non-Specific Active Suici gaetano Thoughts (Past 1 Month) No 09/18/2025 12:51 PM EDT China Cervantes RN 6. Suicidal Behavior (Lifetime) No 12:51 PM EDT China Cervantes RN documented as of this encounter Mental Status * Question Answer Entry Date Author Precautions Fall risk 09/18/2025 1:50 PM EDT Dixie Hernandez RN documented in this encounter Discharge Instructions * Discharge Instructions* China Cervantes RN - 09/18/2025 12:22 PM EDT Images from the original note were not included. Post-Anesthesia and Postoperative Instructions () In order to have a fast and comfortable recovery at home, please follow these instructions. A responsible adult must be present for you to be discharged. Do not drive, drink alcohol or make important decisions for 24 hours after surgery. You may feel like resting more than normal after surgery. Start slowly and be more active each day. Start slowly with liquids like 7-up, tea, apple juice or broth. Eat more as your stomach allows. Ifyou feel sick to your stomach, go back to drinking liquids. You may feel some discomfort after surgery. Take the medicine as directed by your caregiver. If your medicine makes you drowsy, do not drink alcohol, drive or operate heavy equipment for at least 24 hours after use. If you are taking antibiotics, take them until they are all gone even if you feel well. Cover your wound or bandage when showering, unless your doctor tells you differently. A small amount of drainage on your bandage is normal. Do not remove your bandage unless your doctortells you to. Please keep track of information about the medicines you take. Follow these tips to manage your medicines. Keep a list of all your medicines. Update the list when you start or stop taking a medicine. Write down changes in how you should take them. Carry your medicine list with you at all times. It will be needed if you have a health emergency . Give the list to your family doctor. Take the list to all your doctor visits. Call your doctor if you have any of the following Temperature higher than 101.5??F Chest pain or difficulty breathing Stomach sickness or throwing up that does not go away You cannot urinate by bedtime Pain is not helped by your medicine. Bandage becomes soaked with blood - Don't remove the bandage, reinforce only Swelling, redness, pain or pus from incision Questions or concerns about your surgery. In the event of an emergency, please go to the closest Emergency Room or call the Emergency Department at [phone]. Smoking and its health risks Smoking is the most preventable cause of illness and in the [place]. Cigarettes are filled with poison that goes into the lungs as you inhale. About 440,000 people every year from illnesses caused by smoking. People who smoke earlier than those who do not smoke. Heart and blood vessel disease, lung disease and ulcers are just some of the health problems that may be caused by smoking. Smoking also slows bone and wound healing and may slow your recovery from surgery. For help quitting smoking, call the National Cancer [place]'s Quitline toll free at or ask your doctor for help. Weight Management Weighing too much is not good for your health. Being overweight increases your risk of health conditions such as heart problems, high blood pressure, type 2 diabetes, and certain types of cancer. Being overweight can also increase your risk for osteoarthritis (hb-bmd-bs-xeo-UBBD-iin) (joint disease), sleep apnea (abnormal breathing at night) or other respiratory (breathing) problems. Being overweight may also cause a person to feel sad or be treated differently by others. The best way to lose weight is to eat fewer calories and get regular exercise. Eating more caloriesthan you need will cause you to gain weight. Try to cut down your calories by 500 calories per day.For example, cut down on one soda (about 150 calories), a small bag of regular potato chips (about 150 calories) and one chocolate bar (about 250 calories). For most people, this change will result in a slow weight loss of about one pound a week. Exercise (for example, walk, swim, or bicycle) for at least 30 minutes on most days of the week. You will be more likely to keep weight off if you make lifelong lifestyle changes. Aim for a slow, steady weight loss. Losing even a small amount of weight can lower your risk of health problems. Ask your dietitian, supervisor hand workers or doctor about a weight loss goal that is right for you. Safe Use of Controlled Substances Taking a medicine may be an important part of your treatment. Your body should heal faster if you take medicine safely. Some medicines are called Controlled Substances. This means their use is controlled by law. Some of these can harm you if you do not take them safely. What can I do to make sure I take my medicine safely? Follow the instructions we give you for how to take your medicine. We will give you an instruction sheet for each of your medicines. Ask your doctor or nurse if you do not get these instructions. Some medicines make you sleepy or cloud your thinking. Do not drive, use heavy machines or do dangerous activities while taking these medicines. Read the label on the bottle each time you take your medicine. Do not take your medicine with alcohol or other sedatives. Do not take medicine after the expiration date. It is against the law to sell your medicine or share it with others. Do not drive while using your medicine. How should I store my medicine? Store it in a safe place. This will keep others from taking your medicine and help you keep track of it. Store controlled substances in a cabinet or container that you can lock. Keep it in a place that is cool, dry and out of direct sunlight. Do not leave it in the car. Do not store in a refrigerator or freezer, unless your doctor tells you to. Call your doctor right away if your medicine is lost or stolen. How should I dispose of medicine that is or no longer needed? You may have medicine left over that you do not need or should not take. You must dispose of it theright way to protect yourself and others. You can ask your local pharmacist how to dispose of them.You can also visit these Web sites to learn more about disposal of controlled substances: Drug Enforcement Agency ([place]): http://www.deadiversion.Back9 Networkoj.gov/drug_disposal/takeback/index.htm National Association of Drug Diversion Investigators (NADDI): http://rxdrugdropbox.org/ [place] Office of Drug Control Policy: http://odcp.[place].gov/Prescription+Drug+Drop+Box+Sites.htm Are there concerns about or ? Before you take a medicine, tell your doctor if you are or plan to get . This could harm your baby. Tell your doctor if you breastfeed. Medicine in breast milk may be bad for your child. What if I have low or impaired vision? If you have vision problems, take extra care with your medicine. Wear your glasses when you take your medicine. Do not take medicine in the dark. What are the signs of overdose? Some controlled substances may cause breathing problems if you take more than your doctor recommends. This may lead to serious health problems or even . You and your caregivers should watch for the following signs of overdose. Slurred speech, confusion or stumbling Feeling dizzy or faint Acting drowsy or groggy Unusual snoring, gasping or snorting during sleep Hard to wake up or keep awake What should I or my caregiver do if I overdose? You or your caregiver should call 911 if you have any of these problems: Cannot wake up Cannot talk after waking up Shortness of breath, slow or light breathing, or breathing has stopped Heartbeat is slow or stopped Gurgling noise comes from the mouth or throat Body is limp or seems lifeless Face is pale or clammy Fingernails or lips look blue or purple What is a BULL report? BULL is a system that tracks prescriptions of controlled substances in [place]. The BULL report tells your doctor if you have been prescribed controlled substances in the past. Doctors must get a BULL report before prescribing controlled substances. What can I do if the information in my BULL report is wrong? You or your doctor may contact the dispenser who reported the information to [employer]. If the dispenser agrees that the information should be changed, he or she can fix the BULL report. However, the dispenser may certify that the report is correct. If that is the case, you or your doctor may then call the [place] Drug Enforcement and Professional Practices Branch at .This will start an investigation of the error. Tips for Quitting Tobacco ([place]) Tobacco and secondhand smoke can cause health problems such as cancer or heart and lung disease. They also make it harder for you to get better after an illness or surgery. Tobacco and tobacco smoke have more than 4000 chemicals. They can hurt you and those near you. Know your ???triggers?? Triggers are danger situations where you have a strong urge to use tobacco. If you know them, you can deal with them. Avoid places where you will see people use tobacco. This is very important when you first start to quit. Plus, secondhand smoke is bad for you. Change habits that give you the urge to use tobacco. If you smoked in the car, drink water instead.If you used tobacco after meals, try taking walks. Stress, anger or sadness can cause you to crave tobacco. Fight the urge by thinking of things that make you relaxed or happy - like your favorite song. The urge will often pass in a few minutes. How to cope with nicotine withdrawal Nicotine in tobacco is very addictive. Nicotine withdrawal can put you in a bad mood and cause you to crave tobacco. This can last for weeks after you quit. There are medicines that can ease these feelings. We can help our patients fight the urge to use tobacco. While you are here, your doctor can get you medicines, nicotine patches or gum. Talk to your doctor about which one is best for you. Let us help you quit You do not have to spend a lot of money to get help. You may even find help for free. Support groups: Your local health department may offer these. 's resources to help you quit: http://www.[facility]/TobaccoFree/ - Click on the Quit Here! tab. A telephone quit line: (3-861-MLLQPWZ) Web sites: www.smokefree.gov, www.Ph[employer]Nation.Instaclustr, www.[employer] Tobacco Treatment Counselors: Call 493-007-6648. Medicare and Medicaid pay for this. employees, retirees, and their spouses or sponsored dependents can get free nicotine replacementtherapy and coaching. Visit www.[facility]/HR/Wellness/consults.html. [facility]: Free pamphlets on quitting tobacco, secondhand smoke and other health topics. Tell your doctor or nurse if you are want to know more. We can help! You can quit! It is hard to quit tobacco. Most people try to quit a few times before they stay quit for good. It will be easier to quit if you can relax and stay calm in times of stress. Quitting tobacco saves youmoney and your health! documented in this encounter Medications at Time of Discharge amoxicillin-clav ulanate (Augmentin) 875-125 MG tablet TAKE 1 TABLET EVERY 12 HOURS FOR 7 DAYS 05/08/2025 Cetirizine HCl 10 MG capsule Take by mouth every morning. famotidine (Pepcid) 40 MG tablet take 1 tablet 1 time each day at bedtime 11/12/2024 fluconazole (Diflucan) 150 MG tablet TAKE 1 TABLET NOW THEN REPEAT IN 3 DAYS IF NEEDED 05/08/2025 fluticasone (Flonase) 50 MCG/ACT nasal spray Administer 1 spray into each nostril daily. Shake gently. Before first use, prime pump. After use, clean tip and replace cap. Macrobid 100 MG capsule Take 1 capsule every 12 hours by oral route for 7 days. 06/23/2025 metoprolol succinate XL (Toprol-XL) 25 MG 24 hr tablet Take 1 tablet by mouth daily. montelukast (Singulair) 10 MG tablet Take 1 tablet by mouth nightly. nystatin (Mycostatin) cream APPLY A THIN FILM TO THE AFFECTED AREA OF SKIN 2 TIMES EACH DAY 07/23/2025 rosuvastatin (Crestor) 10 MG tablet take 1 tablet 1 time each day 05/25/2025 spironolactone (Aldactone) 50 MG tablet take 1 tablet 1 time each day 05/25/2025 documented as of this encounter Miscellaneous Notes * Dixie Blas RN - 09/18/2025 1:45 PM EDT Images from the original note were not included. 776 Home Care after Eyelid Surgery How will I care for myself after surgery? Cold compress. Keep cold on your wound as much as you can for 2-3 days. Do not apply ice directly on the skin. You can use either: ? A folded washcloth soaked in ice water and wrung out ? A bag of frozen peas The first week after surgery. ? Do not rub near the incision. ? Do not get water on the incision. ? Do not lift anything that weighs more than 15 lbs. Eye ointment. You should get a tube of eye ointment after surgery. ? Do not rub it on. Apply it straight from the tube. ? Apply it to the stitches 2 times a day. ? The ointment is eye-friendly. It is OK to get some in your eye. This may cause blurred vision, but it should go away once you stop using the ointment. ? Do not pull eyelid off eye to apply ointment to wounds. Apply to the eye and the ointment will spread on its own and cover the wounds. Eye shield. Wear it at bedtime over your operated eye. Your doctor will tell you when to stop Eye patch. If you have a patch taped over your eye, do not use cold compresses or ointment. Leave the patch alone. Your doctor will remove the patch at your follow up. Sleeping or lying down. Always keep your head raised above your chest. This will help prevent swelling. ? Keep your head raised on 2-3 pillows. ? Make sure your eyelid or cheek does not rub on anything. Bleeding. It is normal to have some ooze or drainage from the wound. Do not try to clean dry blood from the wound. This may cause more bleeding. Call the doctor if bleeding does not stop. How can I control pain? ? Extra Strength Tylenol is the only pain medicine needed after most eyelid surgeries. ? For more complex surgeries, the doctor may prescribe a pain medicine. In that case, you may choose to take either the prescription pain medicine or the Tylenol, but not both together. ? Unless your doctor says otherwise, you should avoid all other pain medicines for at least 1 week after surgery. So the list of medicines to avoid includes aspirin, ibuprofen, Advil, Nuprin, Motrin,Bufferin, Anacin and Excedrin. ? You should keep taking your other prescribed medicines (except blood thinners) as ordered. How do I avoid problems after anesthesia? Most of these surgeries are done with local anesthesia and IV sedation. In rare cases, patients have nausea after this anesthesia. To avoid this, follow these tips: ? Start by drinking only clear liquids after surgery. Some examples are water, sports drinks, 7-Up,and steven dayami. ? If you handle clear liquids with no stomach sickness, you may start eating your normal foods. ? Avoid ?fatty foods? the day of your surgery or if you have any stomach sickness. Some examples are milk, pizza and hamburgers. When do I follow up with my doctor? ? We will call you the day after surgery to check on you and to schedule your follow up. ? Your first follow up will be 1-2 weeks after surgery. If needed, the doctor will remove the patchand stitches. When should I call the doctor? Call the doctor?s office right away if you have any of these: ? Signs of infection: skin near the wound is red, swollen, warm or painful; or drainage smells bad ? Bleeding that does not stop o It is normal to have some oozing or drainage. o Do not clean dried blood from the incision - this may cause more bleeding. ? Temperature over 100??F ? Very bad pain that is not help by medicine ? Sudden loss of vision - it is normal for vision to be a little blurry ? Double vision On weekdays from 8 am to 5 pm you can call the Eye Clinic at [phone] Patel's equal opportunity officer at [phone]. Nights, weekends or holidays, call [phone] and ask for the eye surgeon clinical education manager. * Op Note - Uriel Patel MD - 09/18/2025 1:29 PM EDT Operative Note Date: 09/18/25 Location: [facility] OR Name: Marly Ruff, : 1980, PREOPERATIVE DIAGNOSIS: right medial canthal basal cell carcinoma status post (s/p) Mohs excision POSTOPERATIVE DIAGNOSIS: right medial canthal basal cell carcinoma status post (s/p) Mohs excision PROCEDURE PERFORMED: 1. Right medial canthal rotational flap ANESTHESIA: MAC ATTENDING SURGEON: Uriel Patel MD, who was present, scrubbed, and actively participated in all portions of the procedure. REGIONAL ECONOMIST: Dr Migdalia Mendoza ESTIMATED BLOOD LOSS: Approximately 5 cc. COMPLICATIONS: None. SPECIMENS: None. DISPOSITION: Stable and sent to PACU. INDICATION FOR PROCEDURE: The patient has a right medial canthal Basal cell carcinoma. The patient underwent Mohs surgery. DESCRIPTION OF PROCEDURE: After informed consent was obtained, the patient was identified in the preoperative holding area as Marly Ly, the patient was taken to the operating room and placed in the supine position. MAC Anesthesia was commenced and then a local anesthetic and epinephrine mixture was injected into the right medial canthal area. The patient was then prepped and draped in the usual standard sterile ophthalmic fashion. It should be noted that a time-out was performed prior to the beginning of this procedure, and after identifying the patient by their name, hospital number and operative sites, all were in agreement. Corneal eye peoples with eye antibiotic ointment inside each eye shield were placed over each eye preoperatively. A right medial canthal rotational flap was created with a #15 blade incision and Haley Scissors dissection. It was rotated into the wound defect and anchored to the anterior aspect of the medial orbital rim with one deep interrupted 5.0 Vicryl suture. The skin wounds were closed with interrupted 5.0 Monocryl sutures. The right lower eyelid (RLL) height and contour were deemed appropriate. The corneal eye peoples were removed and eye antibiotic ointmt was applied to the Wounds. The patient was awoken from anesthesia and taken to the recovery room. Postoperative instructions and follow up care were outlined. * H&P - Uriel Patel MD - 09/17/2025 9:21 PM EDT Images from the original note were not included. History Of Present Illness Marly Ruff is a 45 y.o. female presenting with left basal cell carcinoma (BCC) status post (s/p) MOhs Past Medical History She has a past medical history of BCC (basal cell carcinoma), eyelid (08/2025), Exercise tolerance finding (09/11/2025), Hyperlipidemia, Hypertension, Motion sickness, PONV (postoperative nausea and vomiting), and Seasonal allergies. Surgical History She has a past surgical history that includes Hysterectomy; Tonsillectomy; section, classic; and Colectomy partial / total. Family History Family History[1] Social History She reports that she has never smoked. She has never used smokeless tobacco. She reports that she does not drink alcohol and does not use drugs. Occupational History Occupational history[2] Employer: No address on file. Travel History Relevant International Travel History: Travel Screening No screening recorded since 09/16/252120 Travel History Travel since 08/18/25 No documented travel since 08/18/25 Relevant Domestic Travel History: see chart Immunizations reviewed VACCINE / DOSE Flu Tetanus Pneumovax Shingles Allergies Chlorpheniramine, Phenylephrine, Pyrilamine, Scopolamine, and Erythromycin Medications Current Medications[3] Review of Systems Constitutional: Negative. HENT: Negative. Eyes: Negative. Respiratory: Negative. Cardiovascular: Negative. Gastrointestinal: Negative. Endocrine: Negative. Genitourinary: Negative. Musculoskeletal: Negative. Skin: Negative. Allergic/Immunologic: Negative. Neurological: Negative. Hematological: Negative. Psychiatric/Behavioral: Negative. Physical Exam Vitals reviewed. Constitutional: Appearance: Normal appearance. Eye: Left medial canthal basal cell carcinoma (BCC) status post (s/p) Mohs HENT: Head: Normocephalic. Nose: Nose normal. Cardiovascular: Rate and Rhythm: Normal rate and regular rhythm. Pulmonary: Effort: Pulmonary effort is normal. Abdominal: General: Abdomen is flat. Musculoskeletal: Cervical back: Neck supple. Skin: General: Skin is dry. Neurological: Mental Status: She is oriented to person, place, and time. Psychiatric: Mood and Affect: Mood normal. Last Recorded Vitals Height 1.6 m (5' 3 ), weight 90.7 kg (200 lb). Relevant Results reviewed Assessment and Plan Left medial canthal basal cell carcinoma (BCC) status post (s/p) Mohs Proceed with Left medial canthal rotational flap Left upper and lower canalicular probing with possible mini-[place] tubes placement [1] Family History Problem Relation Name Age of Onset Anesthesia problems Neg Hx [2] [3] No current facility-administered medications for this encounter. Current Outpatient Medications Medication Sig Dispense Refill Cetirizine HCl 10 MG capsule Take by mouth every morning. fluticasone (Flonase) 50 MCG/ACT nasal spray Administer 1 spray into each nostril daily. Shake gently. Before first use, prime pump. After use, clean tip and replace cap. metoprolol succinate XL (Toprol-XL) 25 MG 24 hr tablet Take 1 tablet by mouth daily. montelukast (Singulair) 10 MG tablet Take 1 tablet by mouth nightly. rosuvastatin (Crestor) 10 MG tablet take 1 tablet 1 time each day spironolactone (Aldactone) 50 MG tablet take 1 tablet 1 time each day amoxicillin-clavulanate (Augmentin) 875-125 MG tablet TAKE 1 TABLET EVERY 12 HOURS FOR 7 DAYS (Patient not taking: Reported on 09/11/2025) famotidine (Pepcid) 40 MG tablet take 1 tablet 1 time each day at bedtime (Patient not taking: Reported on 09/11/2025) fluconazole (Diflucan) 150 MG tablet TAKE 1 TABLET NOW THEN REPEAT IN 3 DAYS IF NEEDED (Patient nottaking: Reported on 09/11/2025) Macrobid 100 MG capsule Take 1 capsule every 12 hours by oral route for 7 days. (Patient not taking: Reported on 09/11/2025) nystatin (Mycostatin) cream APPLY A THIN FILM TO THE AFFECTED AREA OF SKIN 2 TIMES EACH DAY (Patient not taking: Reported on 09/11/2025) * PAT Phone Note - Sonja Howe RN - 09/11/2025 12:13 PM EDT HPI Marly Ruff is a 45 y.o. female who presents with Pre-op Diagnosis * Basal cell carcinoma (BCC) of eyelid, unspecified laterality [C44.111] now scheduled for RECONSTRUCTION, EYELID with possible canalicular probing with tube (Right). Date scheduled is 09/18/2025. Past Medical History[1] Family History[1] Social History[1] SURGICAL HISTORY: Surgical History[1] Allergies[1] MEDICATIONS: Current Medications[1] Sonja Howe RN [1] Past Medical History: Diagnosis Date BCC (basal cell carcinoma), eyelid 08/2025 Exercise tolerance finding 09/11/2025 Can climb 3 flights of stairs w/o SOA Hyperlipidemia Hypertension Motion sickness PONV (postoperative nausea and vomiting) Seasonal allergies [1] Family History Problem Relation Name Age of Onset Anesthesia problems Neg Hx [1] Social History Tobacco Use Smoking status: Never Smokeless tobacco: Never Vaping Use Vaping status: Never Used Substance Use Topics Alcohol use: Never Drug use: Never [1] Past Surgical History: Procedure Laterality Date SECTION, CLASSIC COLECTOMY PARTIAL / TOTAL HYSTERECTOMY TONSILLECTOMY [1] Allergies Allergen Reactions Chlorpheniramine Swelling Other reaction(s): throat swelling Phenylephrine Swelling Other reaction(s): throat swelling throat swelling Pyrilamine Swelling Other reaction(s): thraot swelling Scopolamine Swelling Erythromycin Diarrhea [1] No current facility-administered medications for this encounter. Current Outpatient Medications: Cetirizine HCl, Take by mouth every morning. fluticasone, Administer 1 spray into each nostril daily. Shake gently. Before first use, prime pump. After use, clean tip and replace cap. metoprolol succinate XL, Take 1 tablet by mouth daily. montelukast, Take 1 tablet by mouth nightly. rosuvastatin, take 1 tablet 1 time each day spironolactone, take 1 tablet 1 time each day amoxicillin-clavulanate, TAKE 1 TABLET EVERY 12 HOURS FOR 7 DAYS (Patient not taking: Reported on 09/11/2025) famotidine, take 1 tablet 1 time each day at bedtime (Patient not taking: Reported on 09/11/2025) fluconazole, TAKE 1 TABLET NOW THEN REPEAT IN 3 DAYS IF NEEDED (Patient not taking: Reported on 09/11/2025) Macrobid, Take 1 capsule every 12 hours by oral route for 7 days. (Patient not taking: Reported on 09/11/2025) nystatin, APPLY A THIN FILM TO THE AFFECTED AREA OF SKIN 2 TIMES EACH DAY (Patient not taking: Reported on 09/11/2025) * Preprocedure Instructions - Sonja Howe RN - 09/11/2025 12:12 PM EDT Home Medication Instructions Current Medications Medication Instructions Cetirizine HCl 10 MG capsule Take morning of surgery fluticasone (Flonase) 50 MCG/ACT nasal spray Take as needed metoprolol succinate XL (Toprol-XL) 25 MG 24 hr tablet Take night before surgery montelukast (Singulair) 10 MG tablet Take night before surgery rosuvastatin (Crestor) 10 MG tablet Take morning of surgery spironolactone (Aldactone) 50 MG tablet Hold day of surgery General Preoperative Instructions You will be called the business day before surgery with your arrival time No alcohol or smoking prior to surgery Arrive on time to avoid delays Parking/Registration procedure explained You MUST have a responsible adult available for transport to and from hospital Visitation policy for the day of surgery reviewed Bring insurance card, photo ID, along with power of traffic law attorney, guardianship or advanced directives if applicable Do not bring money, jewelry or other valuables Hibiclens bathing instructions reviewed if applicable Notify surgeon of fever, illness, any changes or if you decide not to have surgery No food, no thickened liquids after midnight the night before the surgery. You may drink CLEAR LIQUIDS-meaning water, Gatorade/Pedialyte, or apple juice, until 2 hours prior to arrival time surgery day. Avoid the reds and purples on the Gatorade/Pedialyte, if applicable for surgery type Registration will be on the ground floor lobby of [facility] Parking Garage Address: [address] documented in this encounter Plan of Treatment Upcoming Encounters Date Type Department Care Team (Late st Contact Info) Description 01/27/2026 3:00 PM EST Office Visit [facility] [address] [place] [address] Uriel Patel MD [address] [phone] documented as of this encounter Procedures Procedure Name Priority Date/Time Associated Diagnosis Comments PROBING, LACRIMAL DUCT 09/18/2025 1:13 PM EDT Basal cell carcinoma (BCC) of eyelid, unspecified laterality CA ADJ TISS XFER LID,NOS,EAR <10 SQCM 09/18/2025 1:13 PM EDT Basal cell carcinoma (BCC) of eyelid, unspecified laterality documented in this encounter Visit Diagnoses Diagnosis Basal cell carcinoma (BCC) of eyelid- Primary Basal cell carcinoma (BCC) of eyelid, unspecified laterality [C44.111] documented in this encounter Admitting Diagnoses Diagnosis Basal cell carcinoma (BCC) of eyelid documented in this encounter Administered Medications Inactive Administered Medications - up to 3 most recent administrations Medication Order MAR Action Action Date Dose Rate Site aprepitant (Emend) capsule 40 mg 40 mg, Oral, Once, 1 dose, On Sun09/18/25 at 1315, Routine, Holding - Preprocedure Given 09/18/2025 12:38 PM EDT 40 mg droperidol (Inapsine) injection 0.625 mg 0.625 mg, Intravenous, Once as needed, 1 dose, Starting on Sun09/18/25 at 1345, Until Sun09/18/25 at 1653, Routine, Recovery (Phase I only), nausea, vomiting fentaNYL (Sublimaze) injection 25 mcg 25 mcg, Intravenous, Every 5 min PRN, 2 doses, Starting on Sun09/18/25 at 1345, Until Sun09/18/25 at 1653, Routine, Recovery (Phase I only), DVPRS >/= 5, CPOT >/= 3, FLACC >/= 4, PAINAD >/= 4 fentaNYL (Sublimaze) injection 50 mcg 50 mcg, Intravenous, Once as needed, 1 dose, Starting on Sun09/18/25 at 1345, Until Sun09/18/25 at 1653, Routine, Recovery (Phase I only), DVPRS >/= 5, CPOT >/= 3, FLACC >/= 4, PAINAD >/= 4 HYDROmorphone (Dilaudid) injection 0.25 mg 0.25 mg, Intravenous, Every 10 min PRN, 2 doses, Starting on Sun09/18/25 at 1345, Until Sun09/18/25 at 1653, Routine, Recovery (Phase I only), DVPRS >/= 5, CPOT >/= 3, FLACC >/= 4, PAINAD >/= 4 HYDROmorphone (Dilaudid) injection 0.5 mg 0.5 mg, Intravenous, Once as needed, 1 dose, Starting on Sun09/18/25 at 1345, Until Sun09/18/25 at 1653, Routine, Recovery (Phase I only), DVPRS >/= 5, CPOT >/= 3, FLACC >/= 4, PAINAD >/= 4 naloxone (Narcan) injection 0.4 mg 0.4 mg, Intravenous, As needed, Starting on Sun09/18/25 at 1345, Until Sun09/18/25 at 1653, Routine, Recovery (Phase I only), respiratory depression ondansetron (Zofran) injection 4 mg 4 mg, Intravenous, Once as needed, 1 dose, Starting on Sun09/18/25 at 1345, Until Sun09/18/25 at 1653, Routine, Recovery (Phase I only), nausea, vomiting oxyCODONE (Roxicodone) immediate release tablet 5 mg 5 mg, Oral, Every 30 min PRN, 2 doses, Starting on Sun09/18/25 at 1345, Until Sun09/18/25 at 1653, Routine, Recovery (Phase I only), DVPRS >/= 5, CPOT >/= 3, FLACC >/= 4, PAINAD >/= 4 sodium chloride 0.9 % flush 10 mL 10 mL, Intravenous, Every 12 hours, First dose on Sun09/18/25 at 1315, Until Discontinued, Routine, Holding - Preprocedure sodium chloride 0.9 % flush 10 mL 10 mL, Intravenous, As needed, Starting on Sun09/18/25 at 1216, Until Sun09/18/25 at 1653, Routine, Holding - Preprocedure, line care documented in this encounter Active and Recently Administered Medications Times are shown in EDT. Scheduled Medication Order 09/16/2025 09/17/2025 09/18/2025 aprepitant (Emend) capsule 40 mg (COMPLETED) 40 mg, Oral, Once, 1 dose, On Sun09/18/25 at 1315, Routine, Holding - Preprocedure 1238 (Given - Provid er: China Cervantes RN) lactated Ringer's infusion (COMPLETED) 100 mL/hr, Intravenous, Once, 1 dose, On Sun09/18/25 at 1315, Routine 1318 (New Bag - Prov ider: Pamela Arciniega CRNA, JAIMIE)1341 (Anesthesia Volume Adjustment - Provider: Pamela Arciniega CRNA, JAIMIE) lactated Ringer's infusion 20 mL/hr, Intravenous, Once, 1 dose, On Sun09/18/25 at 1445, Routine 1445 (Canceled Entry - Provider: Automatic Discharge Provider - Comment: Automatically canceled at discontinue of medication order) sodium chloride 0.9 % flush 10 mL(Linked Group 1) 10 mL, Intravenous, Every 12 hours, First dose on Sun09/18/25 at 1315, Until Discontinued, Routine, Holding - Preprocedure 1315 (Canceled Entry - Provider: Automatic Discharge Provider - Comment: Automatically canceled at discontinue of medication order) PRN Medication Order 09/16/2025 09/17/2025 09/18/2025 droperidol (Inapsine) injection 0.625 mg 0.625 mg, Intravenous, Once as needed, 1 dose, Starting on Sun09/18/25 at 1345, Until Sun09/18/25 at 1653, Routine, Recovery (Phase I only), nausea, vomiting erythromycin (Romycin) 5 MG/GM ophthalmic ointment (CANCELED) As needed, Starting on Sun09/18/25 at 1336, Until Sun09/18/25 at 1346, Routine 1336 (Given - Provid er: Uriel Patel MD) fentaNYL (Sublimaze) injection 25 mcg(Linked Group 2) 25 mcg, Intravenous, Every 5 min PRN, 2 doses, Starting on Sun09/18/25 at 1345, Until Sun09/18/25 at 1653, Routine, Recovery (Phase I only), DVPRS >/= 5, CPOT >/= 3, FLACC >/= 4, PAINAD >/= 4 fentaNYL (Sublimaze) injection 50 mcg(Linked Group 2) 50 mcg, Intravenous, Once as needed, 1 dose, Starting on Sun09/18/25 at 1345, Until Sun09/18/25 at 1653, Routine, Recovery (Phase I only), DVPRS >/= 5, CPOT >/= 3, FLACC >/= 4, PAINAD >/= 4 HYDROmorphone (Dilaudid) injection 0.25 mg(Linked Group 3) 0.25 mg, Intravenous, Every 10 min PRN, 2 doses, Starting on Sun09/18/25 at 1345, Until Sun09/18/25 at 1653, Routine, Recovery (Phase I only), DVPRS >/= 5, CPOT >/= 3, FLACC >/= 4, PAINAD >/= 4 HYDROmorphone (Dilaudid) injection 0.5 mg(Linked Group 3) 0.5 mg, Intravenous, Once as needed, 1 dose, Starting on Sun09/18/25 at 1345, Until Sun09/18/25 at 1653, Routine, Recovery (Phase I only), DVPRS >/= 5, CPOT >/= 3, FLACC >/= 4, PAINAD >/= 4 lidocaine-EPINEPHrine (Xylocaine W/EPI) 1 %-1:[id number] 4 mL, bupivacaine (Marcaine) 0.5 % 4 mL in sodium bicarbonate injection (CANCELED) As needed, Starting on Sun09/18/25 at 1335, Until Sun09/18/25 at 1346, Routine 1335 (Given - Provid er: Uriel Patel MD - Comment: right eyelid) naloxone (Narcan) injection 0.4 mg 0.4 mg, Intravenous, As needed, Starting on Sun09/18/25 at 1345, Until Sun09/18/25 at 1653, Routine, Recovery (Phase I only), respiratory depression ondansetron (Zofran) injection 4 mg 4 mg, Intravenous, Once as needed, 1 dose, Starting on Sun09/18/25 at 1345, Until Sun09/18/25 at 1653, Routine, Recovery (Phase I only), nausea, vomiting oxyCODONE (Roxicodone) immediate release tablet 5 mg 5 mg, Oral, Every 30 min PRN, 2 doses, Starting on Sun09/18/25 at 1345, Until Sun09/18/25 at 1653, Routine, Recovery (Phase I only), DVPRS >/= 5, CPOT >/= 3, FLACC >/= 4, PAINAD >/= 4 sodium chloride 0.9 % flush 10 mL(Linked Group 1) 10 mL, Intravenous, As needed, Starting on Sun09/18/25 at 1216, Until Sun09/18/25 at 1653, Routine, Holding - Preprocedure, line care tetracaine (Altacaine) 0.5 % ophthalmic solution (CANCELED) As needed, Starting on Sun09/18/25 at 1336, Until Sun09/18/25 at 1346, Routine, Intraprocedure 1336 (Given - Provid er: Uriel Patel MD) Linked Groups Order Group 1: Insert peripheral IV (CANCELED) Once, On Sun09/18/25 at 1217, For 1 occurrence, Holding - Preprocedure And Saline lock IV (CANCELED) Once, On Sun09/18/25 at 1217, For 1 occurrence, Holding - Preprocedure And sodium chloride 0.9 % flush 10 mLJump to med 10 mL, Intravenous, Every 12 hours, First dose on Sun09/18/25 at 1315, Until Discontinued, Routine, Holding - Preprocedure And sodium chloride 0.9 % flush 10 mLJump to med 10 mL, Intravenous, As needed, Starting on Sun09/18/25 at 1216, Until Sun09/18/25 at 1653, Routine, Holding - Preprocedure, line care Group 2: fentaNYL (Sublimaze) injection 50 mcgJump to med 50 mcg, Intravenous, Once as needed, 1 dose, Starting on Sun09/18/25 at 1345, Until Sun09/18/25 at 1653, Routine, Recovery (Phase I only), DVPRS >/= 5, CPOT >/= 3, FLACC >/= 4, PAINAD >/= 4 And fentaNYL (Sublimaze) injection 25 mcgJump to med 25 mcg, Intravenous, Every 5 min PRN, 2 doses, Starting on Sun09/18/25 at 1345, Until Sun09/18/25 at 1653, Routine, Recovery (Phase I only), DVPRS >/= 5, CPOT >/= 3, FLACC >/= 4, PAINAD >/= 4 Group 3: HYDROmorphone (Dilaudid) injection 0.5 mgJump to med 0.5 mg, Intravenous, Once as needed, 1 dose, Starting on Sun09/18/25 at 1345, Until Sun09/18/25 at 1653, Routine, Recovery (Phase I only), DVPRS >/= 5, CPOT >/= 3, FLACC >/= 4, PAINAD >/= 4 And HYDROmorphone (Dilaudid) injection 0.25 mgJump to med 0.25 mg, Intravenous, Every 10 min PRN, 2 doses, Starting on Sun09/18/25 at 1345, Until Sun09/18/25 at 1653, Routine, Recovery (Phase I only), DVPRS >/= 5, CPOT >/= 3, FLACC >/= 4, PAINAD >/= 4 documented in this encounter Additional Health Concerns Assessment Noted Time A Body Mass Index follow-up plan has been documented for the patient 08/19/2025 1:05 PM EDT documented as of this encounter Care Teams Engineering Supervisor Relationship Specialty Start Date End Date Ata Lyons MD [address] [place] [id number] PCP - General 04/08/21 documented as of this encounter
--- OUTSIDE RECORDS SUMMARY | 2025-09-18 12:17 | XMS_ITS | Encounter Summary ---
Author Organization Healthcare Address 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 Uriel Patel MD [address] [place] [phone] Phone: tel: fax: [facility] [address] [place] [phone] Phone: tel: Referral ID Status Reason Start Date Expiration Date Visits Re quested Visits Authorized [id number] 1 1 Encounter Details Date Type Department Care Team (Late st Contact Info) Description 09/18/2025 1:17 PM EDT Anesthesia Event [facility] [address] [place] [phone] Anupama Lyles MD [address] [place] [address] Ekta Vasquez MD [address] [place] [address] Anesthesia Record Procedure Summary Procedure Name Responsible Anesthesiologist Anesthesia Start Time Anesthesia Stop Time RECONSTRUCTION, EYELID with possible canalicular probing with tube (Right) Anupama Lyles MD 09/18/25 1317 09/18/25 1350 Events Date Time Event Comment 09/18/2025 1255 1317 An Start The patient was reevaluated immediately before sedation and remains eligible for anesthesia plan. 1318 An Start Data 1318 In Room 1322 An Induction The patient was reevaluated immediately before moderate or deep sedation use and before anesthesia induction. 1323 Anesthesia Ready 1329 Proc Start 1340 Proc Fin 1344 an stop data 1346 Out of Room 1350 Handoff to Receiving I compl eted my handoff to the receiving clinician during which we: 1. Identified the patient 2. Identified the responsible provider 3. Reviewed the pertinent medical history 4. Discussed the surgical course 5. Reviewed intra-op anesthesia management and issues during anesthesia 6. Set expectations for post-procedure period 7. Allowed opportunity for questions and acknowledgement of understanding. 1350 An Stop Meds Name Total propofol (Diprivan) injection 10 mg/mL 7 0 mg midazolam (Versed) injection 1 mg/mL 1 m g lidocaine PF (Xylocaine-MPF) 2% 40 mg lactated Ringer's infusion 250 mL * Agents Name O2 * Blood No blood administrations on file. Lines, Drains, and Airways Type Details Placement Removal Wound 09/18/25; N; Yes; Gillis rgical; Eye (eye lid); Right 09/18/25 0000 by Megan Ernst RN Peripheral IV Placement Date: 08/27 03/20; Placement Time: 1230; Catheter Size: 22 G; Orientation: Posterior, Right; Location: Hand; Site Prep: Chlorhexidine ; Local Anesth: None; Technique: Anatomical landmarks; Inserted by: Hyun Cervantes RN; Insertion Attempts: 1; Patient Tolerance: Tolerated well; Removal Date: 09/18/25; Removal Time: 1427 09/18/25 1230 by China Cervantes RN 09/18/25 1427 by Dixie Roldan RN documented in this encounter Social History Tobacco Use Types Packs/Day Years Used Date Smoking Tobacco: Never Smokeless Tobacco: Never Alcohol Use Standard Drinks/Week Comments Never 0 (1 standard drink = 0.6 oz pur e alcohol) Comments No Sex and Gender Information Value Date Recorded Sex Assigned at Not on file Legal Sex Female 7:31 PM EDT Gender Identity Not on file Sexual Orientation Not on file documented as of this encounter Functional Status * Question Answer Date of Assessment Author Precautions Fall risk 09/18/2025 1:50 PM EDT Dixie eHrnandez RN * Calculated C-SSRS Risk Score (Lifetime/Recent) Answer Date of Assessment Author No Risk Indicated 09/18/2025 12:51 PM EDT Day, Janine Flowers RN * Question Answer Date of Assessment Author 1. Wish to be (Past 1 Month) No 025 12:51 PM EDT Day, China Flowers RN 2. Non-Specific Active Suici gaetano Thoughts (Past 1 Month) No 09/18/2025 12:51 PM EDT Day, China Flowers RN 6. Suicidal Behavior (Lifetime) No 12:51 PM EDT Day, China Flowers RN documented as of this encounter Mental Status * Question Answer Entry Date Author Precautions Fall risk 09/18/2025 1:50 PM EDT Dixie Hernandez RN documented in this encounter Miscellaneous Notes * Anesthesia Postprocedure Evaluation - Pamela Arciniega CRNA, DNP - 09/18/2025 1:50 PM EDT Patient: Marly Ruff Anesthesia Type: MAC Vitals Value Taken Time BP 104/61 09/18/25 13:50 Temp 36.4 09/18/25 13:50 Pulse 68 09/18/25 13:50 Resp 14 09/18/25 13:50 SpO2 100 % 09/18/25 13:49 Vitals shown include unfiled device data. Anesthesia Post Evaluation Patient location during evaluation: PACU Patient participation: complete - patient participated Level of consciousness: awake Pain management: adequate (pain score 0-3) Airway patency: natural airway Cardiovascular status: acceptable and hemodynamically stable Respiratory status: acceptable, face mask and nonlabored ventilation Hydration status: acceptable Nausea/Vomiting: No No notable events documented. * Anesthesia Preprocedure Evaluation - Anupama Lyles MD - 09/18/2025 12:59 PM EDT Images from the original note were not included. Patient: Marly Ruff is a 45 y.o. female with body mass index is 35.85 kg/m??. who presents withBasal cell carcinoma (BCC) of eyelid, now for RECONSTRUCTION, EYELID with possible canalicular probing with tube (Right), . (Right) Procedure Information Date/Time: 09/18/25 1350 Procedures: RECONSTRUCTION, EYELID with possible canalicular probing with tube (Right) - 59107 30 min . (Right) Location: [facility] Surgeons: Uriel Patel MD 45F with basal cell carcinoma of eyelid now scheduled for above procedure. Previous anesthesia complicated by PONV. Received Emend in preop. No recent changes in health. Appropriately NPO. Relevant Problems No relevant active problems ALLERGIES Allergies[1] NPO STATUS Date of Last Liquid: 09/18/25 Time of Last Liquid: 1000 Date of Last Solid: 09/17/25 Time of Last Solid: 1900 Last Intake Type: Clear fluids Time of Last Void: 1230 Past Medical History[2] AIRWAY HISTORY Airway Detailed Review Displaying the 20 most recent records Date Difficult Airway Blade Size ETT Size C-L Class Final Type Intubation Method 11/16/23 - - - - - - MEDICATIONS Outpatient Current Outpatient Medications Medication Instructions amoxicillin-clavulanate (Augmentin) 875-125 MG tablet TAKE 1 TABLET EVERY 12 HOURS FOR 7 DAYS Cetirizine HCl 10 MG capsule Every morning famotidine (Pepcid) 40 MG tablet take 1 tablet 1 time each day at bedtime fluconazole (Diflucan) 150 MG tablet TAKE 1 TABLET NOW THEN REPEAT IN 3 DAYS IF NEEDED fluticasone (Flonase) 50 MCG/ACT nasal spray 1 spray, Daily Macrobid 100 MG capsule Take 1 capsule every 12 hours by oral route for 7 days. metoprolol succinate XL (TOPROL-XL) 25 mg, Daily montelukast (SINGULAIR) 10 mg, Nightly nystatin (Mycostatin) cream APPLY A THIN FILM TO THE AFFECTED AREA OF SKIN 2 TIMES EACH DAY rosuvastatin (Crestor) 10 MG tablet take 1 tablet 1 time each day spironolactone (Aldactone) 50 MG tablet take 1 tablet 1 time each day Scheduled Current Scheduled Medications[3] PRNs Current PRN Medications[4] SURGICAL HX: Surgical History[5] SOCIAL HX: Social History[6] OBJECTIVE DATA LABS No results found for: WBC , HGB , HCT , MCV , PLT No results found for: CALCIUM , BUN , CREATININE , BCR , NA , K , CL , CO2 , AG , CA Type and Screen No results found for: ABO No results found for: HGBA1C No results found for: PGLU , GLUCOSE ABG No results found for: PHART , URK1WKZ , PO2ART , SO2ART , BEART , YZM4YVF , HCTART , SODIUMART , POTASSIUMART , POCTCL , POCGLU , IONCALART , LACTATE No results found for: PH , PCO2 , PO2 , M8BQVHYL , BASEEXC , HCTSYR , KSYR , CLSYR , GLUSYR , CAION , LACTATE ECHO No echocardiogram results found for the past 12 months PFTs No results found for: TEJ5HJZ , QCO1ORJW , WPM6DRD , FVCPRED BP Readings from Last 5 Encounters: 09/18/25 (!) 141/84 Physical Exam Airway Mallampati: II Mouth opening: normal TM distance: >3 FB Neck ROM: full Cardiovascular Rhythm: regular Rate: normal Dental - normal exam Pulmonary Breath sounds clear to auscultation Neurological Oriented: normal to time, normal to place and normal to person and oriented to person, place and time Skin - normal exam Musculoskeletal Extremities Anesthesia Plan ASA 2 Plan was reviewed with: ACCESS SPECIALIST Anesthesia technique(s) discussed with the patient/family: general and MAC Anesthesia plan agreed upon was: MAC Anesthetic plan and risks discussed with patient. Use of blood products discussed with patient who consented to blood products. Anesthesia Evaluation [1] Allergies Allergen Reactions Chlorpheniramine Swelling Other reaction(s): throat swelling Phenylephrine Swelling Other reaction(s): throat swelling throat swelling Pyrilamine Swelling Other reaction(s): thraot swelling Scopolamine Swelling Erythromycin Diarrhea [2] Past Medical History: Diagnosis Date BCC (basal cell carcinoma), eyelid 08/2025 Exercise tolerance finding 09/11/2025 Can climb 3 flights of stairs w/o SOA Hyperlipidemia Hypertension Motion sickness PONV (postoperative nausea and vomiting) Seasonal allergies [3] acetaminophen, 1,000 mg, Oral, Once lactated Ringer's, 100 mL/hr, Intravenous, Once Insert peripheral IV, , , Once AND Saline lock IV, , , Once AND sodium chloride, 10 mL, Intravenous, q12h AND sodium chloride, 10 mL, Intravenous, PRN [4] PRN medications: lidocaine, Insert peripheral IV AND Saline lock IV AND sodium chlorideAND sodium chloride [5] Past Surgical History: Procedure Laterality Date SECTION, CLASSIC COLECTOMY PARTIAL / TOTAL HYSTERECTOMY TONSILLECTOMY [6] Social History Tobacco Use Smoking status: Never Smokeless tobacco: Never Vaping Use Vaping status: Never Used Substance Use Topics Alcohol use: Never Drug use: Never documented in this encounter Plan of Treatment Upcoming Encounters Date Type Department Care Team (Late st Contact Info) Description 01/27/2026 3:00 PM EST Office Visit [facility] [address] [place] [address] Uriel Patel MD [address] [phone] documented as of this encounter Visit Diagnoses Not on filedocumented in this encounter Administered Medications Inactive Administered Medications - up to 3 most recent administrations Medication Order MAR Action Action Date Dose Rate Site lactated Ringer's infusion 100 mL/hr, Intravenous, Once, 1 dose, On Sun09/18/25 at 1315, Routine New Bag 09/18/2025 1:18 PM EDT lidocaine PF (Xylocaine) 2 % injection Intravenous, As needed, Starting on Sun09/18/25 at 1322, Until Sun09/18/25 at 1350, Routine, Anesthesia Intraprocedure Given 09/18/2025 1:22 PM EDT 40 mg midazolam (Versed) injection Intravenous, As needed, Starting on Sun09/18/25 at 1318, Until Sun09/18/25 at 1350, Routine, Anesthesia Intraprocedure Given 09/18/2025 1:18 PM EDT 1 mg propofol (Diprivan) injection Intravenous, As needed, Starting on Sun09/18/25 at 1322, Until Sun09/18/25 at 1350, Routine, Anesthesia Intraprocedure Given 09/18/2025 1:22 PM EDT 70 mg documented in this encounter Additional Health Concerns Assessment Noted Time A Body Mass Index follow-up plan has been documented for the patient 08/19/2025 1:05 PM EDT documented as of this encounter Care Teams Integration Analyst Relationship Specialty Start Date End Date Ata Lyons MD [address] [place] [address] PCP - General 04/08/21 documented as of this encounter
--- OUTSIDE RECORDS SUMMARY | 2025-09-18 12:50 | XMS_ITS | Encounter Summary ---
Author Organization Healthcare Address 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 Uriel Patel MD [address] [employer] [address] [place] [phone] Phone: tel: fax: [facility] [address] [place] [phone] Phone: tel: Referral ID Status Reason Start Date Expiration Date Visits Re quested Visits Authorized [id number] 1 1 Encounter Details Date Type Department Care Team (Late st Contact Info) Description 09/18/2025 1:50 PM EDT - 09/18/2025 2:50 PM EDT Surgery [facility] [address] [place] [phone] Uriel Patel MD [address] [employer] [address] [place] [phone] RECONSTRUCTION, EYELID with possible canalicular probing with tube [78988 (CPT )] Surgery Details Date/Time Status Location OR Service Patient Class Case Class Case Type Trauma Case? 09/18/2025 1:50 PM Posted [facility] [address] [place] [address] Outpatient Surgery E1 - Elective (Do not proceed without financial clearance) Panel 1 Procedure LRB Anes Op Region Wound Class Comments RECONSTRUCTION, EYELID with possible canalicular probing with tube Right General [address] 30 min . Right Surgeon Surgeon Role Service Panel Migdalia Mendoza MD Fellow Ophthalmology 1 Uriel Patel MD Primary Ophthalmology 1 documented in this encounter Social History Tobacco [...] 1 Month) No 025 12:51 PM EDT Helen, China Flowers RN 2. Non-Specific Active Suici [...] this encounter Discharge Instructions * Discharge Instructions* Helen China Flowers RN - 09/18/2025 12:22 PM EDT Images [...] Room or call the Emergency Department at [phone]. Smoking and its health risks Smoking is [...] help quitting smoking, call the National [employer] [place]'s Quitline toll free at or ask your doctor for help. Weight Management Weighing too much is not good for your health. Being overweight increases your risk of health conditions such as heart problems, high blood pressure, type 2 diabetes, and certain types of cancer. Being overweight can also increase your risk for osteoarthritis (ed-ufg-tb-ecs-PHXL-hhw) (joint disease), sleep apnea (abnormal breathing at [...] risk of health problems. Ask your dietitian, furniture technician or doctor about a weight loss goal [...] of controlled substances: Drug Enforcement Agency (PABLITO): http://www.deadiversion.usdoj.gov/drug_disposal/takeback/index.htm National Association of Drug Diversion Investigators (NADDI): http://rxdrugdropbox.org/ [place] Office of Drug Control Policy: http://odcp.ky.gov/Prescription+Drug+Drop+Box+Sites.htm Are there concerns about or ? Before [...] that tracks prescriptions of controlled substances in [place]. The BULL report tells your doctor if you have been prescribed controlled substances in the past. Doctors must get a BULL report before prescribing controlled substances. What can I do if the information in my BULL report is wrong? You or your doctor may contact the dispenser who reported the information to The[employer] Monitoring [employer]. If the dispenser agrees that the information should be changed, he or she can fix the BULL report. However, the dispenser may certify that the report is correct. If that is the case, you or your doctor may then call the [place] Drug Enforcement and Professional Practices Branch at [...] these. 's resources to help you quit: http://www.[facility]/TobaccoFree/ - Click on the Quit Here! tab. A telephone quit line: (9-336-MWLRFXR) Web sites: www.smokefree.gov, www.becomeanex.org, www.[facility] [facility]: Call 978-494-4934. Medicare and Medicaid pay for this. employees, retirees, and their spouses or sponsored dependents can get free nicotine replacementtherapy and coaching. Visit www.[facility]/HR/Wellness/consults.html. [facility]: Free pamphlets [...] of this encounter Miscellaneous Notes * Dixie Blas, RN - 09/18/2025 1:45 PM EDT Images [...] you can call the Eye Clinic at [phone] Patel's medical office asst at [phone]. Nights, weekends or holidays, call [phone] and ask for the eye surgeon hand alterations seamstress. * Op Note - Uriel Patel MD - 09/18/2025 1:29 PM EDT Operative Note Date: 09/18/25 Location: [facility] OR Name: Marly Ruff, : 1980, PREOPERATIVE DIAGNOSIS: right medial canthal basal cell carcinoma status post (s/p) Mohs excision POSTOPERATIVE DIAGNOSIS: right medial canthal basal cell carcinoma status post (s/p) Mohs excision PROCEDURE PERFORMED: 1. Right medial canthal rotational flap ANESTHESIA: MAC ATTENDING SURGEON: Uriel Patel MD, who was present, scrubbed, and actively participated in all portions of the procedure. WING MAILER MACHINE OPERATOR: Dr Migdalia Mendoza ESTIMATED BLOOD LOSS: Approximately [...] card, photo ID, along with power of employment attorney, guardianship or advanced directives if applicable [...] be on the ground floor lobby of [facility] ([facility] Parking Garage Address: [address] [place] [address]. documented in this encounter Plan of Treatment Upcoming Encounters Date Type Department Care Team (Late st Contact Info) Description 01/27/2026 3:00 PM EST Office Visit [facility] [address] [place] [address] Uriel Patel MD [address] [phone] documented as of this encounter Procedures Procedure Name Priority Date/Time Associated Diagnosis Comments PROBING, LACRIMAL DUCT 09/18/2025 1:13 PM EDT Basal cell carcinoma (BCC) of eyelid, unspecified laterality KS ADJ TISS XFER LID,NOS,EAR <10 SQCM 09/18/2025 1:13 PM EDT Basal cell carcinoma (BCC) of eyelid, unspecified laterality documented in this encounter Visit Diagnoses Diagnosis Basal cell carcinoma (BCC) of eyelid- Primary Basal cell carcinoma (BCC) of eyelid, unspecified laterality [C44.111] Basal cell carcinoma (BCC) of eyelid, unspecified laterality documented in this encounter Admitting Diagnoses Diagnosis [...] vomiting erythromycin (Romycin) 5 MG/GM ophthalmic ointment As needed, Starting on Sun09/18/25 at 1336, Until Sun09/18/25 at 1346, Routine Given 09/18/2025 1:36 PM EDT 1 strip fentaNYL (Sublimaze) injection 25 mcg 25 mcg, [...] PAINAD >/= 4 lidocaine-EPINEPHrine (Xylocaine W/EPI) 1 %-1:604979 4 mL, bupivacaine (Marcaine) 0.5 % 4 mL in sodium bicarbonate injection As needed, Starting on Sun09/18/25 at 1335, Until Sun09/18/25 at 1346, Routine Given 09/18/2025 1:35 PM EDT 3 mL naloxone (Narcan) injection 0.4 mg 0.4 mg, [...] care tetracaine (Altacaine) 0.5 % ophthalmic solution As needed, Starting on Sun09/18/25 at 1336, Until Sun09/18/25 at 1346, Routine, Intraprocedure Given 09/18/2025 1:36 PM EDT 2 drops documented in this encounter Active and Recently [...] 1346, Routine 1336 (Given - Provid er: Ureil Patel MD) fentaNYL (Sublimaze) injection 25 mcg(Linked [...] PAINAD >/= 4 lidocaine-EPINEPHrine (Xylocaine W/EPI) 1 %-1:387857 4 mL, bupivacaine (Marcaine) 0.5 % 4 [...] documented as of this encounter Care Teams Coroner'S Juror Relationship Specialty Start Date End Date Ata Lyons MD [address] [place] [address] PCP - General 04/08/21 documented as of this encounter
--- OUTSIDE RECORDS SUMMARY | 2025-09-25 14:45 | XMS_ITS | Encounter Summary ---
Author Organization [facility] Address [address] [place] [address] Care Team Providers Care Oriental Rug Repairer Name Role Phone Ata Lyons MD Primary Care Provider [phone] Reason for Visit * Reason Comments Post-op Encounter Details Date Type Department Care Team (Late st Contact Info) Description 09/25/2025 3:45 PM EDT Office Visit [facility] [address] [place] [address] Uriel Patel MD [address] [phone] Basal cell carcinoma (BCC) of eyelid, unspecified laterality (Primary Dx) Social History Tobacco Use Types Packs/Day Years [...] on file documented as of this encounter Miscellaneous Notes * Progress Notes - Migdalia Mendoza MD - 09/25/2025 3:45 PM EDT Subjective Patient ID: Marly Ruff is a 45 y.o. female. Chief Complaint Post-op HPI Marly Ruff is a 45 y.o. female presenting to clinic for POW1 of right lid reconstruction with possible canalicular probing with tube. Pt states she feels everything is healing okay. Pt denies pain. Last edited by Graciela Mcfarlane on 09/25/2025 3:34 PM. No current outpatient medications on file. (Ophthalmic Drugs) No current facility-administered medications for this visit. (Ophthalmic Drugs) Current Outpatient Medications (Other) Medication Sig Cetirizine HCl 10 MG capsule Take by [...] 7 DAYS (Patient not taking: Reported on 09/25/2025) famotidine (Pepcid) 40 MG tablet take 1 tablet 1 time each day at bedtime (Patient not taking: Reported on 09/25/2025) fluconazole (Diflucan) 150 MG tablet TAKE 1 TABLET NOW THEN REPEAT IN 3 DAYS IF NEEDED (Patient nottaking: Reported on 09/25/2025) Macrobid 100 MG capsule Take 1 capsule every 12 hours by oral route for 7 days. (Patient not taking: Reported on 09/25/2025) nystatin (Mycostatin) cream APPLY A THIN FILM TO THE AFFECTED AREA OF SKIN 2 TIMES EACH DAY (Patient not taking: Reported on 09/25/2025) No current facility-administered medications for this visit. (Other) Objective Base Eye Exam Visual Acuity (Snellen - Linear) Right Left Dist sc 20/20 20/20 -3 Correction: Glasses Pupils Pupils APD Right PERRL None Left PERRL None Extraocular Movement Right Left Full Full Neuro/Psych Oriented x3: Yes Mood/Affect: Normal Slit Lamp and Fundus Exam Slit Lamp Exam Right Left Lids/Lashes RLL healing well, no infection or dehiscence, right lower eyelid (RLL) and right upper eyelid (RUL) in good position Assessment/Plan Assessment & Plan Basal cell carcinoma (BCC) of eyelid, unspecified laterality POW#1 status post (s/p) PROCEDURE PERFORMED: 1. Right medial canthal rotational flap Doing well. Right lower eyelid (RLL) in good position. Wounds healing well. No signs of infection or dehiscence. Stop eye antibiotic ointment Continue cold compresses Return to Oculoplastics clinic in 4 months Return to general eye clinic for routine exam Pt instructed to notify if any issues. Tobacco Use: Low Risk (09/25/2025) Patient History Smoking Tobacco Use: Never Smokeless Tobacco Use: Never Passive Exposure: Not on file The patient has been counseled on tobacco cessation: Not Applicable Cosigned by Uriel Patel MD at 09/25/2025 3:50 PM EDT Associated attestation - Uriel Patel MD - 09/25/2025 3:50 PM EDT I saw and evaluated the patient with the resident/fellow. I discussed the case with the resident/fellow and agree with the findings and plan as documented. documented in this encounter Plan of Treatment Upcoming Encounters Date Type Department Care Team (Late st Contact Info) Description 01/27/2026 3:00 PM EST Office Visit [facility] [address] [place] [address] Uriel Patel MD [address] [phone] documented as of this encounter Visit Diagnoses Diagnosis Basal cell carcinoma (BCC) of eyelid, unspecified laterality- Primary documented in this encounter Additional Health Concerns Assessment Noted Time A fall risk assessment has been complete d for the patient 09/25/2025 3:33 PM EDT A Body Mass Index follow-up plan has been documented for the patient 09/25/2025 3:50 PM EDT documented as of this encounter Care Teams Oriental Rug Repairer Relationship Specialty Start Date End Date Ata Lyons MD [address] [place] [address] PCP - General 04/08/21 documented as of this encounter
--- NOTE | 2025-11-12 15:22 | MM_ITS ---
PROCEDURE INFORMATION: Exam: MG Bilateral Screening 3D Mammography Exam date and time: 11/12/2025 3:27 PM Age: 45 years old Clinical indication: Screening examination TECHNIQUE: Imaging protocol: Bilateral Screening tomosynthesis and 2D mammography including computer-aided detection (CAD) when performed. COMPARISON: 1. MG MM DIG SCREENING MAMM BI W/CAD 10/31/2024 3:39 PM 2. MG MM DIG MAMM DX UNILAT LT CAD 10/31/2023 2:28 PM FINDINGS: MAMMOGRAPHY: Breast composition: There are scattered areas of fibroglandular density. Mass: Ovoid 0.9 cm mass in the middle third of the left central breast Architectural distortion: None. Calcifications: No suspicious calcifications. Asymmetric density: None. Skin thickening: None. Axillary adenopathy: None. IMPRESSION: Patient to be recalled for spot compression views of the left breast in the CC and MLO projections, a full 90 degree lateral view, and left breast ultrasound for further evaluation of a left breast mass. ASSESSMENT: BI-RADS Category 0: Incomplete- Need Additional Imaging Evaluation
--- OUTSIDE RECORDS SUMMARY | 2025-11-12 15:22 | XMS_ITS | Clinical Summary ---
Author Organization [employer] ([place], [place], [place], [place], [place]) Address [address] [place] [address] Care Team Providers Care Community Mental Health Worker Name Role Phone Ata Lyons MD Primary Care Provider + [phone] Allergies Active Allergy Reactions Criticality Noted Date [...] e alcohol) MAYBE 3-4 TIMES PER YEAR PRAPARE - Transportation Answer Date Re corded In the past 12 months, has l ack of transportation kept you from medical appointments or from getting medications? 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 Gender Identity Not on file Sexual Orientation Not on file Last Filed Vital Signs Vital Sign Reading Time Taken Comments Blood Pressure 116/64 11/18/2023 8:45 AM EST Pulse 92 11/18/2023 8:45 AM EST Temperature 37 C (98.6 F) 11/18/2023 8:45 AM EST Respiratory Rate 16 [...] FOBT/FIT 1979 Fit-DNA (Cologuard) 1979 Sigmoidoscopy 1979 Depression Screening (12+) 1991 HIV Screening 1994 Hepatitis C Screening 1997 Pap Smear 2000 Breast Cancer Screening 2019 Lipid Panel 2024 Tobacco Cessation Counseling and Screening (12+) 11/09/2024 11/09/2023 COVID-19 VACCINE (3 - 2024-2 6 season) 2025 01/15/2021, 12/18/2020 Influenza Vaccine (#1) 2025 DTAP/TDAP/TD VACCINES (2 - T d or Tdap) 05/02/2026 05/02/2016 Pneumococcal Vaccine: 0-49 Years Aged Out No longer eligible b ased on patient's age to complete this topic Insurance BLUE CROSS/BLUE SHIELD Advance Directives For more information, please contact: [phone] * Full Code (Latest Code Status on File) Date Activated Date Inactivated Comments 11/16/2023 5:12 PM 11/18/2023 1:31 PM Care Teams Community Mental Health Worker Relationship Specialty Start Date End Date Ata Lyons MD [address] [place] [address] PCP - General Adolescent Medicine 11/09/23
--- OUTSIDE RECORDS SUMMARY | 2025-11-12 15:22 | XMS_ITS | Encounter Summary ---
Author Organization Healthcare Address [address] [place] [address] Care Team Providers Care Comic Artist Name Role Phone Ata Lyons MD Primary Care Provider [phone] Encounter Details Date Type Department Care Team (Latest Contact Info) Description 09/25/2025 Travel Social History Tobacco Use Types Packs/Day [...] as of this encounter Plan of Treatment Upcoming Encounters Date Type Department Care Team (Late st Contact Info) Description 01/27/2026 3:00 PM EST Office Visit [facility] [address] [facility] [place] [address] Uriel Patel MD [address] [address] documented as of this encounter Visit Diagnoses Not on filedocumented in this encounter Additional Health Concerns Assessment Noted Time A fall risk assessment has been complete d for the patient 09/25/2025 3:33 PM EDT A Body Mass Index follow-up plan has been documented for the patient 09/25/2025 3:50 PM EDT documented as of this encounter Care Teams Comic Artist Relationship Specialty Start Date End Date Ata Lyons MD [address] [place] [address] PCP - General 04/08/21 documented as of this encounter
--- OUTSIDE RECORDS SUMMARY | 2025-11-12 15:22 | XMS_ITS | Clinical Summary ---
Author Organization [facility] Address [address] [id number] Care Team Providers Care Professor Of Historical Theology Name Role Phone Ata Lyons MD Primary Care Provider [phone] Allergies Active Allergy Reactions Criticality Noted Date Comments Chlorpheniramine Swelling High 01/22/2023 Other reaction(s): throat swelling Erythromycin Diarrhea Low 08/19/2025 Phenylephrine Swelling High 01/22/2023 Other reaction(s): throat swelling throat swelling Pyrilamine Swelling High 01/22/2023 Other reaction(s): thraot swelling Scopolamine Swelling High 10/24/2023 Medications spironolactone (Aldactone) 50 MG tablet take 1 tablet 1 time each day 5 Active rosuvastatin (Crestor) 10 MG tablet take 1 tablet 1 time each day 5 Active nystatin (Mycostatin) cream APPLY A THIN FILM TO THE AFFECTED AREA OF SKIN 2 TIMES EACH DAY 5 Active Macrobid 100 MG capsule Take 1 capsule every 12 hours by oral route for 7 days. 5 Active montelukast (Singulair) 10 MG tablet Take 1 tablet by mouth nightly. Active metoprolol succinate XL (Toprol-XL) 25 MG 24 hr tablet Take 1 tablet by mouth daily. Active fluconazole (Diflucan) 150 MG tablet TAKE 1 TABLET NOW THEN REPEAT IN 3 DAYS IF NEEDED 5 Active famotidine (Pepcid) 40 MG tablet take 1 tablet 1 time each day at bedtime 4 Active Cetirizine HCl 10 MG capsule Take by mouth every morning. Active amoxicillin-cla vulanate (Augmentin) 875-125 MG tablet TAKE 1 TABLET EVERY 12 HOURS FOR 7 DAYS Active fluticasone (Flonase) 50 MCG/ACT nasal spray Administer 1 spray into each nostril daily. Shake gently. Before first use, prime pump. After use, clean tip and replace cap. Active Active Problems Problem Noted Date Diagnosed Date Basal cell carcinoma (BCC) of eyelid 08/19/2025 Encounters Date Type Department Care Team Description 09/25/2025 3:45 PM EDT Office Visit [facility] [address] [place] [address] Uriel Patel MD Basal cell carcinoma (BCC) of eyelid, unspecified laterality (Primary Dx) 09/25/2025 Travel 09/18/2025 1:50 PM EDT - 09/18/2025 2:50 PM EDT Surgery [facility] [address] [place] [phone] Uriel Patel MD RECONSTRUCTION, EYELID with possible canalicular probing with tube [[id number] (CPT )] 09/18/2025 1:17 PM EDT Anesthesia Event [facility] [address] [place] [phone] Anupama Lyles MD Sloan, Anne N, MD 09/18/2025 11:40 AM EDT - 09/18/2025 2:30 PM EDT Hospital Encounter [address] [address] Uriel Patel MD Basal cell carcinoma (BCC) of eyelid, unspecified laterality [C44.111] (Primary Dx) Discharge Disposition: Home or Self Care 09/18/2025 Travel 08/19/2025 12:45 PM EDT Office Visit [facility] [address] [place] [phone] Uriel Patel MD Basal cell carcinoma (BCC) of eyelid, unspecified laterality (Primary Dx) 08/19/2025 Travel from Last 3 Months Family History Medical History Relation Name Comments Anesthesia problems Neg Hx Social History Tobacco Use Types Packs/Day Years [...] Mass Index 35.85 09/18/2025 12:10 PM EDT Plan of Treatment Upcoming Encounters Date Type Department Care Team (Late st Contact Info) Description 01/27/2026 3:00 PM EST Office Visit [facility] [address] [place] [address] Uriel Patel MD [address] [address] Health Maintenance Due Date Last Done Comments [facility]-Depression Screening 1979 [facility]-HIV Screening 1979 [facility]-Hepatitis C Screening 1979 [facility]-Infant/Child/Adol SDOH Screenings 1979 [facility]- SDOH Screenings 1997 [facility]-Adult SDOH Screenings 1997 [facility]-Hepatitis B Vaccines (1 of 3 - 19+ 3-dose series) 1998 [facility]-Pneumococcal Vaccine: Pediatrics (0 to 5 Years) and At-Risk Patients (6 to 49 Years) (1 of 2 - PCV) 1998 [facility]-Zoster Vaccines (1 of 2) 1998 [id number] Vaccine (3 - Moderna risk series) 02/12/2021 01/15/2021, 12/18/2020 CT Colonography 2024 Colonoscopy 2024 FIT-DNA 2024 FIT 2024 FOBT 2024 Sigmoidoscopy 2024 [facility]-Colorectal Cancer Screening 2024 [facility]-Influenza Vaccine (#1) 2025 [facility]-DTaP,Tdap,and Td Vaccine s (2 - Td or Tdap) 05/02/2026 05/02/2016 [facility]-Cervical Cancer Screening Discontinued [facility]-HPV/Cotest Discontinued 04/16/2006 [facility]-Pap Smear Discontinued 04/16/2006 [facility]-Obesity Intervention Completed 025, 08/19/2025 HPV Vaccines (No Doses Required) Completed [facility]-HIB Vaccines Aged Out No longer e ligible based on patient's age to complete this topic [facility]-Hepatitis A Vaccines Aged Out No longer eligible based on patient's age to complete this topic [facility]-IPV Vaccines Aged Out No longer e ligible based on patient's age to complete this topic [facility]-Rotavirus Vaccines Aged Out No lo nger eligible based on patient's age to complete this topic Medical Devices Implanted Type Area Manufacturing Plant Controller Device Identifier Shelf Expiration Date Model / Serial / Lot Stickney Bicanaliculus Intubation Set - [id number] Implanted:09/18/20 by Uriel Patel MD at [facility] (Quantity not on file) [id number] / / Stickney Bicanaliculus Intubation Set - [id number] Implanted:09/18/20 by Uriel Patel MD at [facility] (Quantity not on file) [id number] / / Procedures Procedure Name Priority Date/Time Associated Diagnosis Comments PROBING, LACRIMAL DUCT 09/18/2025 1:13 PM EDT Basal cell carcinoma (BCC) of eyelid, unspecified laterality NE ADJ TISS XFER LID,NOS,EAR <10 SQCM 09/18/2025 1:13 PM EDT Basal cell carcinoma (BCC) of eyelid, unspecified laterality CYTO DATA CONVERSION Routine 04/16/2006 12:00 AM EDT from Last 3 Months or Most Recently Relevant to Health Maintenance Results * Cytology (04/16/2006 12:00 AM EDT) 04/16/2006 04/18/2006 11: 21 AM EDT Narrative [facility]QUEST - 04/19/2006 12:14 PM EDT [facility] MR #: [id number] [facility] [place], [place] [address] 1980 (Age: 25) FW Collect Date: 04/16/2006 00:00 Receipt Date: 04/18/2006 11:21 Page 1 DEPARTMENT OF PATHOLOGY AND LABORATORY MEDICINE CYTOPATHOLOGY REPORT Email: [email or web address] ATTENDING MD/Practitioner: Jazmine Hoover MD Service: PAT Location: [facility] Reported: 04/19/2006 12:14 Collected: 04/16/2006 00:00 INTERPRETATION THIN PREP (CERVICAL/VAGINAL): NEGATIVE FOR INTRAEPITHELIAL LESION OR MALIGNANCY. SATISFACTORY FOR EVALUATION; ENDOCERVICAL/ TRANSFORMATION ZONE COMPONENT PRESENT. Slide examined with [employer] ThinPrep Imaging System but manually screened for technical reasons. Electronically Signed Out By AMADOU Tsang(ASCP) AMADOU Tsang(ASCP) Cervical cytology is a screening test primarily for squamous cancers and precursors and has associated false negative and positive results. New technologies such as liquid based sampling may decrease but will not eliminate all false negative results. Regular screening and follow-up of unexplained clinical signs and symptoms are recommended to minimize false negative results. Please see the ASCCP website (www.asccp.org) for followup recommendations. If HPV testing was requested, correlation with the results is suggested (please call Microbiology at [phone] for results). CLINICAL INFORMATION: Menstrual History: : First Trimester Date of Last Menstrual Period: 02/15/06 SPECIMEN DESCRIPTION: A: THIN PREP (CERVICAL/VAGINAL) THIN PREP PROCESS CELLULAR ENHANCEMENT ICD: V76.2 CERVIX, SPECIAL SCREENING FOR MALIGNANT NEOPLASM F: A; RT IMAGE [id number] SNOMED CODES: A; [id number] In cases where a pathologist has signed out the report, the service has been rendered in part by a resident. The signing pathologist has performed and is responsible for the reported pathologic evaluation. us Historical Provider LAB PATHOLOGY ORDERABLES Fin al Result SUNQUEST from Last 3 Months or Most Recently Relevant to Health Maintenance Insurance [place] [address] Care Teams Professor Of Historical Theology Relationship Specialty Start Date End Date Ata Lyons MD [address] [place] [address] PCP - General 04/08/21
--- OUTSIDE RECORDS SUMMARY | 2025-11-12 15:22 | XMS_ITS | Referral Summary ---
Author Organization [employer] ([place], [place], [place], [place], [place]) Address [address] [place] [address] Care Team Providers Care Farmworker [employer] Name Role Phone Ata Lyons MD Primary Care Provider + [phone] Allergies Active Allergy Reactions Criticality Noted Date [...] Date Natalio rded Speak language other than Albanian at home Not on file 12/05/2023 Want help with school or training Not on file 12/05/2023 Substance Use Answer Date Recorded Used prescription meds for non-medical reasons N ot on file 12/05/2023 Used illegal drugs past 12 months Not on file 12/05/2023 Comments Unknown Sex and Gender Information Value Date Recorded Sex Assigned at Not on file 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
--- OUTSIDE RECORDS SUMMARY | 2025-11-12 15:23 | XMS_ITS | Encounter Summary ---
Author Organization Healthcare Address [address] [id number] Care Team Providers Care Practice Clinician Name Role Phone Ata Lyons MD Primary Care Provider [phone] Encounter Details Date Type Department Care Team (Latest Contact Info) Description 09/18/2025 Travel Social History Tobacco Use Types Packs/Day [...] Dixie Hernandez RN documented in this encounter Plan of Treatment Upcoming Encounters Date Type Department Care Team (Late st Contact Info) Description 01/27/2026 3:00 PM EST Office Visit [facility] [address] [place] [address] Uriel Patel MD [address] [place] [address] documented as of this encounter Visit Diagnoses Not on filedocumented in this encounter Additional Health Concerns Assessment Noted Time A Body Mass Index follow-up plan has been documented for the patient 08/19/2025 1:05 PM EDT documented as of this encounter Care Teams Practice Clinician Relationship Specialty Start Date End Date Ata Lyons MD [address] [place] [address] PCP - General 04/08/21 documented as of this encounter
== END 2025-11-12 23:59 | disposition home or self-care (01) ==
LOC: RAD 15:20
PROVIDERS: PCP Internal Medicine Adolescent Medicine; Visit Provider Nurse Practitioner Family
DX: Z12.31 Encounter for screening mammogram for malignant neoplasm of breast (principal); R92.323 Mammographic fibroglandular density, bilateral breasts; N63.20 Unspecified lump in the left breast, unspecified quadrant
CPT/HCPCS: 77063; 77067